=== PATIENT | male | born 1945 | race Asian ===

== ENCOUNTER 2019-08-21 16:16 | Inpatient (IN) | payer MEDICARE, MEDICAID ==
[~2019-08-21] VITALS: Ht 170.2 cm; Wt 74.4 kg
[2019-08-21] MEDS ORDERED: URECHOLINE25 MG GT (16:33)
[2019-08-21] MEDS ORDERED: COREG3.125 MG GT (16:33)
[2019-08-21] MEDS ORDERED: ACETAMINOP160 MG/5 M GT (16:33)
[2019-08-21] MEDS ORDERED: AMIODARONE HCL400 M1 GT (16:33)
[2019-08-21] MEDS ORDERED: ATORVASTATIN CA80 MG GT (16:33)
[2019-08-21] MEDS ORDERED: FERROUS SULFAT325 M2 GT (16:33)
[2019-08-21] MEDS ORDERED: EPOGEN10000 UNIT SUBQ (16:33)
[2019-08-21] MEDS ORDERED: PROSCAR5 MG GT (16:37)
[2019-08-21] MEDS ORDERED: HUMALOG100 UNIT/3 SUBQ (16:37)
[2019-08-21] MEDS ORDERED: FLONASE ALLERG9.9 ML NS (16:37)
[2019-08-21] MEDS ORDERED: LOPERAMIDE2 M1 GT (16:43)
[2019-08-21] MEDS ORDERED: JUVEN PACKET1 EAC1 GT (16:43)
[2019-08-21] MEDS ORDERED: LEVEMIR100 UNIT/1 SUBQ (16:43)
[2019-08-21] MEDS ORDERED: LOSARTAN-HCTZ1 EACH GT (16:43)
[2019-08-21] MEDS ORDERED: MELATONIN 3 MG1 EAC1 GT (16:43)
--- NOTE | 2019-08-21 16:52 | NUR ---
ED Nurse Note: Patient was brought in by ambulance from longterm due to incrased SOB. Reports no chest pain. No pitting edema noted. Patient awake, alert, oriented x 3. Able to follow command. Distended abdomen noted. G-tube to left side abdomen noted. Ptaient placed on ventilator and decaler.
[2019-08-21] MEDS ORDERED: MULTI-DELYN237 ML GT (16:53)
[2019-08-21] MEDS ORDERED: SIMETHICON40 MG/0.2 GT (17:02)
[2019-08-21] MEDS ORDERED: PRO-STAT LIQUID30 ML GT (17:02)
[2019-08-21] MEDS ORDERED: TERAZOSIN HCL5 MG GT (17:02)
[2019-08-21] MEDS ORDERED: VITAMIN B-1100 MG GT (17:02)
[2019-08-21] MEDS ORDERED: NORCO 5-325 TA1 EACH GT (17:02)
[2019-08-21] MEDS ORDERED: OMEPRAZOLE20 M2 GT (17:02)
[2019-08-21 17:05] LABS: BASOPHILS % (AUTO) 1.6 % (0.0-2.0); EOSINOPHILS % (AUTO) 3.3 % (0.0-3.0); HEMOGLOBIN 9.8 G/DL (14.2-18.0); LYMPHOCYTES % (AUTO) 13.3 % (20.0-45.0); MEAN CORPUSCULAR VOLUME 89 FL (80-99); MONOCYTES % (AUTO) 9.8 % (1.0-10.0); PLATELET COUNT 168 K/UL (150-450); RED BLOOD COUNT 3.82 M/UL (4.70-6.10); RED CELL DISTRIBUTION WIDTH 19.4 % (11.6-14.8); WHITE BLOOD COUNT 6.2 K/UL (4.8-10.8)
--- NOTE | 2019-08-21 17:19 | NUR ---
ED Nurse Note: Patient voided in urinal with assistance. Yellow urine collected and sent.
[2019-08-21 17:31] LABS: ANION GAP 6 mmol/L (5-15); BLOOD UREA NITROGEN 44 mg/dL (7-18); CALCIUM 9.2 MG/DL (8.5-10.1); CARBON DIOXIDE 32 MMOL/L (21-32); CHLORIDE 100 MMOL/L (98-107); CREATININE 1.1 MG/DL (0.55-1.30); POTASSIUM 4.9 MMOL/L (3.5-5.1); SODIUM 138 MMOL/L (136-145)
[2019-08-21 17:45] LABS: ALANINE AMINOTRANSFERASE 102 U/L (12-78); ALBUMIN 2.9 G/DL (3.4-5.0); ALBUMIN/GLOBULIN RATIO 0.6 (1.0-2.7); ALKALINE PHOSPHATASE 124 U/L (46-116); ASPARTATE AMINO TRANSFERASE 76 U/L (15-37); BILIRUBIN,TOTAL 0.4 MG/DL (0.2-1.0); CKMB < 0.5 NG/ML (0.0-3.6); CREATINE KINASE 45 U/L (26-308)
[2019-08-21 17:52] LABS: APPEARANCE,URINE CLEAR; BILIRUBIN, URINE NEGATIVE (NEGATIVE); COLOR,URINE PALE YELLOW; GLUCOSE, URINE (UA) NEGATIVE (NEGATIVE); KETONES,URINE NEGATIVE (NEGATIVE); LEUKOCYTE ESTERASE ,URINE NEGATIVE (NEGATIVE); NITRITE,URINE NEGATIVE (NEGATIVE); PH,URINE 7 (4.5-8.0); PROTEIN,URINE NEGATIVE (NEGATIVE); UROBILINOGEN,URINE NORMAL MG/DL (0.0-1.0)
--- NOTE | 2019-08-21 18:02 | Emergency Room Report ---
History of Present Illness General Chief Complaint: Abnormal Labs Source: Patient, Medical Record Present Illness HPI Patient is a 73-year-old male sent in from facility after increased difficulty with breathing. Prior history of CHF. Patient had prior history of chronic ventilator dependence. Patient was being treated with antibiotics and had recent pleural effusion. Laboratory testing showed markedly elevated BNP. Allergies: Coded Allergies: No Known Allergies (Unverified , 08/21/19) Patient History Reviewed Nursing Documentation: PMH: Agreed; PSxH: Agreed Nursing Documentation-PMH Past Medical History: No History, Except For Hx Hypertension: Yes - SVT, ANEMIA, HYPERLIPIDEMIA Hx Diabetes: Yes - DM 2 Review of Systems All Other Systems: negative except mentioned in HPI Physical Exam Vital Signs Date Time Temp Pulse Resp B/P (MAP) Pulse Ox O2 Delivery O2 Flow Rate FiO2 08/21/19 16:12 98.4 71 22 143/75 (97) 98 Trach Collar 08/21/19 17:12 40 General Appearance: alert, GCS 15, Chronically Ill Eyes: bilateral eye PERRL ENT: normal ENT inspection Neck: limited range of motion, tracheotomy Respiratory: rales Cardiovascular #1: normal peripheral pulses, edema Gastrointestinal: normal inspection, non tender, soft Musculoskeletal: normal inspection Neurologic: alert, motor strength/tone normal, 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 Differential diagnosis include was not limited to pneumonia, bronchitis, anemia, CHF among others. Chest x-ray showed bilateral pleural effusions with some fluid in the right fissure. Laboratory testing shows mild anemia. Patient was given IV Lasix. He was maintained on a ventilator. Dr. Syed Eanmorado was contacted for inpatient management. Labs Test 08/21/19 16:40 08/21/19 17:00 White Blood Count 6.2 K/UL (4.8-10.8) Red Blood Count 3.82 M/UL (4.70-6.10) Hemoglobin 9.8 G/DL (14.2-18.0) Hematocrit 34.0 % (42.0-52.0) Mean Corpuscular Volume 89 FL (80-99) Mean Corpuscular Hemoglobin 25.6 PG (27.0-31.0) Mean Corpuscular Hemoglobin Concent 28.8 G/DL (32.0-36.0) Red Cell Distribution Width 19.4 % (11.6-14.8) Platelet Count 168 K/UL (150-450) Mean Platelet Volume 7.9 FL (6.5-10.1) Neutrophils (%) (Auto) 72.0 % (45.0-75.0) Lymphocytes (%) (Auto) 13.3 % (20.0-45.0) Monocytes (%) (Auto) 9.8 % (1.0-10.0) Eosinophils (%) (Auto) 3.3 % (0.0-3.0) Basophils (%) (Auto) 1.6 % (0.0-2.0) Sodium Level 138 MMOL/L (136-145) Potassium Level 4.9 MMOL/L (3.5-5.1) Chloride Level 100 MMOL/L (98-107) Carbon Dioxide Level 32 MMOL/L (21-32) Anion Gap 6 mmol/L (5-15) Blood Urea Nitrogen 44 mg/dL (7-18) Creatinine 1.1 MG/DL (0.55-1.30) Estimat Glomerular Filtration Rate mL/min (>60) Glucose Level 103 MG/DL (74-106) Lactic Acid Level 1.40 mmol/L (0.4-2.0) Calcium Level 9.2 MG/DL (8.5-10.1) Total Bilirubin 0.4 MG/DL (0.2-1.0) Aspartate Amino Transf (AST/SGOT) 76 U/L (15-37) Alanine Aminotransferase (ALT/SGPT) 102 U/L (12-78) Alkaline Phosphatase 124 U/L (46-116) Total Creatine Kinase 45 U/L (26-308) Creatine Kinase MB < 0.5 NG/ML (0.0-3.6) Creatine Kinase MB Relative Index 1.1 Troponin I 0.008 ng/mL (0.000-0.056) Pro-B-Type Natriuretic Peptide 3757 pg/mL (0-125) Total Protein 8.0 G/DL (6.4-8.2) Albumin 2.9 G/DL (3.4-5.0) Globulin 5.1 g/dL Albumin/Globulin Ratio 0.6 (1.0-2.7) Last Vital Signs Date Time Temp Pulse Resp B/P (MAP) Pulse Ox O2 Delivery O2 Flow Rate FiO2 08/21/19 17:18 40 08/21/19 17:12 71 22 Mechanical Ventilator 08/21/19 16:12 98.4 143/75 (97) 98 Status: unchanged Disposition: ADMITTED INPATIENT Condition: Serious Referrals: Syed Enamorado MD (PCP) Félix Hamm MD Aug 21, 2019 18:02
--- NOTE | 2019-08-21 18:08 | NUR ---
ED Nurse Note: Patient has discoloration (purple) on the sacral area. Patient also has generalized edema on upper body, BUE and bilateral upper leg.
--- NOTE | 2019-08-21 18:24 | Diagnostic Imaging Report ---
EXAM: XR Chest, 1 View CLINICAL HISTORY: SOB TECHNIQUE: Frontal view of the chest. COMPARISON: No relevant prior studies available. FINDINGS: Tracheostomy appears appropriately positioned. No pneumomediastinum or pneumothorax. Bibasilar opacities, likely a combination of pleural effusions and atelectasis or consolidation. There is some fissural fluid. Calcified aorta. Heart contours are somewhat obscured by adjacent pleural/parenchymal disease, but the heart is not grossly enlarged. IMPRESSION: Basilar opacities, likely a combination of pleural effusions and atelectasis or consolidation. Lateral view may be helpful. Tracheostomy.
[2019-08-21 18:29] VITALS: BP 122/55
--- NOTE | 2019-08-21 19:05 | NUR ---
ED Nurse Note: Report given to HOMER [place]. Patient resting in bed. Bed in lowest position.
--- NOTE | 2019-08-21 19:28 | NUR ---
ER Nurse Note: Pt calm, cooperative, no signs of resp distress. Pt VSS, vented, tolerating well with current settings. SLIV LT FA patent; flushes well; pt denies pain. Family at bedside. All safety measures met; will continue to montior.
--- NOTE | 2019-08-21 19:33 | Diagnostic Imaging Report ---
EXAM: XR Abdomen, 2 Views CLINICAL HISTORY: ABD DIST TECHNIQUE: Frontal view of the abdomen/pelvis with upright view of the abdomen. COMPARISON: No relevant prior studies available. FINDINGS/IMPRESSION: Gastrostomy or enterostomy tube in the leftward mid abdomen. No clear bowel obstruction or free air.
[2019-08-21 19:41] VITALS: BP 132/62
--- NOTE | 2019-08-21 19:49 | NUR ---
ER Nurse Note: Report given to HOMER Ruff for continuity of care. Pt VSS, no signs of distress. Pt had no belongings. All orders completed per ERMD orders.
[2019-08-21 20:00] VITALS: BP 141/63
--- NOTE | 2019-08-21 20:00 | NUR ---
NURSE NOTES: Report received from HOMER [place]. Pt transferred to unit via [facility]. Family member at bedside. Belonging checked with RN. Pt is A/O x3, no acute distress noted at this time. SR on school bus monitor. Trach to vent, Shiley 8, AC 20, TV 450, FIO2 40%, PEEP 5, no sob, suction done. clear sputum noted, oral care given. Abd soft, round, non-tender. GT on left UQ, intact, running Glucerna 1.2 at 10cc/hr, goal is 40cc/hr. IV on L FA 20G, intact. Sacral redness noted. Bed in the lowest position. Side rails up x2. Will continue to monitor.
[2019-08-21] MEDS ORDERED: Epoetin Alfa-EPBX(ESRD on dialysis)10,000 unit/ml vial SUBQ SCH (21:00)
[2019-08-21] MEDS: NovoLOG Insulin Flexpen SUBQ SCH (21:00)
[2019-08-21] MEDS ORDERED: oxyCODONE HCL/Acetaminophen 5/325mg ORAL PRN (21:00)
[2019-08-21] MEDS: Levemir Flexpen SUBQ SCH (21:00)
[2019-08-21] MEDS ORDERED: Simethicone 80mg tab GT PRN (21:00)
[2019-08-21] MEDS: Losartan 25mg tab ORAL SCH (22:01)
[2019-08-21] MEDS: Atorvastatin 80mg tab GT SCH (22:02)
[2019-08-21] MEDS: Heparin 5000 units/ml inj SUBQ SCH (22:02)
[2019-08-22] VITALS: BP 126/60
--- NOTE | 2019-08-22 | NUR ---
NURSE NOTES: Noted pt sleeping in the bed, calm and comfortable. No acute distress noted at this time. SR on cardiac care nurse. VS WNL. No SOB. Bed bath given. Condom cath applied. Will continue to monitor.
--- NOTE | 2019-08-22 03:00 | NUR ---
NURSE NOTES: Pt sleeping in the bed, no distress noted. Tolerating well tube feeding and increased to 25cc/hr.
[2019-08-22 04:00] VITALS: BP 127/60
[2019-08-22 06:01] LABS: BASOPHILS % (AUTO) 1.4 % (0.0-2.0); EOSINOPHILS % (AUTO) 5.1 % (0.0-3.0); HEMATOCRIT 31.5 % (42.0-52.0); HEMOGLOBIN 9.8 G/DL (14.2-18.0); LYMPHOCYTES % (AUTO) 13.4 % (20.0-45.0); MEAN CORPUSCULAR VOLUME 84 FL (80-99); MONOCYTES % (AUTO) 10.3 % (1.0-10.0); NEUTROPHILS % (AUTO) 69.8 % (45.0-75.0); PLATELET COUNT 188 K/UL (150-450); RED BLOOD COUNT 3.73 M/UL (4.70-6.10); RED CELL DISTRIBUTION WIDTH 17.9 % (11.6-14.8); WHITE BLOOD COUNT 5.2 K/UL (4.8-10.8)
[2019-08-22] MEDS: NovoLOG Insulin Flexpen SUBQ SCH ×4 (06:17→22:45)
[2019-08-22] MEDS: Levothyroxine 25mcg tab GT SCH (06:17)
[2019-08-22 06:38] LABS: ANION GAP 5 mmol/L (5-15); BLOOD UREA NITROGEN 36 mg/dL (7-18); CALCIUM 8.6 MG/DL (8.5-10.1); CARBON DIOXIDE 35 MMOL/L (21-32); CHLORIDE 100 MMOL/L (98-107); POTASSIUM 3.3 MMOL/L (3.5-5.1); SODIUM 140 MMOL/L (136-145)
--- NOTE | 2019-08-22 07:10 | NUR ---
HAND-OFF: Report given to HOMER Sotomayor.
--- NOTE | 2019-08-22 07:15 | NUR ---
NURSE NOTES: Report received from David Mancini RN.Pt resting in bed awake,alert follows command in no resp distress with trach tube ,on current ordered vent settings,tolerating well,no signs of pain or discomfort,SR on the monitor,GTF Glucerna 1.2 at 40 ml/hr off from 7am -7pm,pt is on oral feeding regular diet pureed moist nectar thick with Passimir valve while eating,condom cath leaking,IV heplock to LFA intact skin warm and dry,SR up x2 HOB elevated call light within reach,bed lock in lowest position, at bedside, will continue with plans of care
[2019-08-22 08:00] VITALS: BP 122/58
--- NOTE | 2019-08-22 08:22 | Consultation ---
Consult Note Consult Note 73 year old male with COPD and vent dependent who was noted to have worsening pulmonary edema and has not improved with PO lasix. BNP very elevated at this time overall patient with increasing sob and congestion. Patient transferred for acute admission. Patient able to eat and does have a GT no fevers noted labs reviewed. care discussed with ERMD and labs reviewed patient has been at the long-term and had been stable but now overall worse he does have history of cardiomyopathy and CHF in the past and has been on cardiac meds and overall was stable extensive discussion with SNF staff and ER chart reviewed PMH respiratory failure trach gt cardiomyopathy debility orthostatic hypotension CHF anemia MEDS and ALLERGIES reviewed and reconciled SOCIAL- prior smoking history, , at SNF, on VENT ROS weak able to ambulate cannot wean increasing sob insomnia constipation vent dependent heart disease and heart failure otherwise negative PHYSICAL WDWN NAD trach reduced breath sounds bilaterally without rhonchi or wheeze [id number] without RG; sys murmur NABS nontender no HSM; GT no CC edema nonfocal CXR with pulmonary edema Labs Test 08/21/19 16:40 08/21/19 17:00 08/22/19 05:09 White Blood Count 6.2 K/UL (4.8-10.8) 5.2 K/UL (4.8-10.8) Red Blood Count 3.82 M/UL (4.70-6.10) 3.73 M/UL (4.70-6.10) Hemoglobin 9.8 G/DL (14.2-18.0) 9.8 G/DL (14.2-18.0) Hematocrit 34.0 % (42.0-52.0) 31.5 % (42.0-52.0) Mean Corpuscular Volume 89 FL (80-99) 84 FL (80-99) Mean Corpuscular Hemoglobin 25.6 PG (27.0-31.0) 26.4 PG (27.0-31.0) Mean Corpuscular Hemoglobin Concent 28.8 G/DL (32.0-36.0) 31.3 G/DL (32.0-36.0) Red Cell Distribution Width 19.4 % (11.6-14.8) 17.9 % (11.6-14.8) Platelet Count 168 K/UL (150-450) 188 K/UL (150-450) Mean Platelet Volume 7.9 FL (6.5-10.1) 6.3 FL (6.5-10.1) Neutrophils (%) (Auto) 72.0 % (45.0-75.0) 69.8 % (45.0-75.0) Lymphocytes (%) (Auto) 13.3 % (20.0-45.0) 13.4 % (20.0-45.0) Monocytes (%) (Auto) 9.8 % (1.0-10.0) 10.3 % (1.0-10.0) Eosinophils (%) (Auto) 3.3 % (0.0-3.0) 5.1 % (0.0-3.0) Basophils (%) (Auto) 1.6 % (0.0-2.0) 1.4 % (0.0-2.0) Sodium Level 138 MMOL/L (136-145) 140 MMOL/L (136-145) Potassium Level 4.9 MMOL/L (3.5-5.1) 3.3 MMOL/L (3.5-5.1) Chloride Level 100 MMOL/L (98-107) 100 MMOL/L (98-107) Carbon Dioxide Level 32 MMOL/L (21-32) 35 MMOL/L (21-32) Anion Gap 6 mmol/L (5-15) 5 mmol/L (5-15) Blood Urea Nitrogen 44 mg/dL (7-18) 36 mg/dL (7-18) Creatinine 1.1 MG/DL (0.55-1.30) 1.0 MG/DL (0.55-1.30) Estimat Glomerular Filtration Rate mL/min (>60) mL/min (>60) Glucose Level 103 MG/DL (74-106) 86 MG/DL (74-106) Lactic Acid Level 1.40 mmol/L (0.4-2.0) Calcium Level 9.2 MG/DL (8.5-10.1) 8.6 MG/DL (8.5-10.1) Total Bilirubin 0.4 MG/DL (0.2-1.0) Aspartate Amino Transf (AST/SGOT) 76 U/L (15-37) Alanine Aminotransferase (ALT/SGPT) 102 U/L (12-78) Alkaline Phosphatase 124 U/L (46-116) Total Creatine Kinase 45 U/L (26-308) Creatine Kinase MB < 0.5 NG/ML (0.0-3.6) Creatine Kinase MB Relative Index 1.1 Troponin I 0.008 ng/mL (0.000-0.056) Pro-B-Type Natriuretic Peptide 3757 pg/mL (0-125) 5910 pg/mL (0-125) Total Protein 8.0 G/DL (6.4-8.2) Albumin 2.9 G/DL (3.4-5.0) Globulin 5.1 g/dL Albumin/Globulin Ratio 0.6 (1.0-2.7) Urine Color Pale yellow Urine Appearance Clear Urine pH 7 (4.5-8.0) Urine Specific [place] 1.010 (1.005-1.035) Urine Protein Negative (NEGATIVE) Urine Glucose (UA) Negative (NEGATIVE) Urine Ketones Negative (NEGATIVE) Urine Blood Negative (NEGATIVE) Urine Nitrite Negative (NEGATIVE) Urine Bilirubin Negative (NEGATIVE) Urine Urobilinogen Normal MG/DL (0.0-1.0) Urine Leukocyte Esterase Negative (NEGATIVE) IMPRESSION CHF pulmonary edema protein calorie malnutrition GINETTE anemia, chronic disease respiratory failure chronic trach gt orthostatic hypotension PLAN VENT diurese cardiology evaluation monitor cxr supportive care follow up labs dc to snf when stable impression, plan, and exam edited and reviewed in detail care discussed with Syed Golden MD Aug 22, 2019 08:22
--- NOTE | 2019-08-22 08:22 | Pulmonology Progress Note ---
Subjective Allergies: Coded Allergies: No Known Allergies (Unverified , 08/21/19) Objective Last 24 Hour Vital Signs Date Time Temp Pulse Resp B/P (MAP) Pulse Ox O2 Delivery O2 Flow Rate FiO2 08/22/19 07:14 65 22 40 08/22/19 04:34 65 21 40 08/22/19 04:00 98.2 67 20 127/60 (82) 98 08/22/19 04:00 Mechanical Ventilator Mechanical Ventilator 08/22/19 04:00 65 08/22/19 04:00 40 08/22/19 02:43 65 22 40 08/22/19 00:42 61 20 40 08/22/19 00:00 98.4 67 20 126/60 (82) 100 08/22/19 00:00 61 08/22/19 00:00 40 08/22/19 00:00 Mechanical Ventilator Mechanical Ventilator 08/21/19 23:10 84 22 40 08/21/19 22:02 70 141/63 08/21/19 22:01 141/63 08/21/19 20:48 64 20 40 08/21/19 20:34 Mechanical Ventilator Mechanical Ventilator 08/21/19 20:00 40 08/21/19 20:00 98.0 70 20 141/63 (89) 100 08/21/19 20:00 Mechanical Ventilator Mechanical Ventilator 08/21/19 19:55 97.5 69 20 132/62 99 Mechanical Ventilator 40 08/21/19 19:41 97.5 69 20 132/62 99 Mechanical Ventilator 40 08/21/19 19:16 71 08/21/19 18:51 73 20 08/21/19 18:29 97.8 71 20 122/55 99 Mechanical Ventilator 40 08/21/19 17:18 40 08/21/19 17:12 71 22 Mechanical Ventilator 40 08/21/19 16:12 98.4 71 22 143/75 (97) 98 Trach Collar Intake and Output 08/21/19 08/22/19 19:00 07:00 Intake Total 220 ml Output Total 350 ml Balance -130 ml Intake Free Water 70 ml Tube Feeding 150 ml Output Urine Total 350 ml # Voids 102 Microbiology Date/Time Source Procedure Growth Status 08/21/19 16:42 Nasal Nares - Final Complete 08/21/19 16:42 Nasal Nares - Final Complete 08/21/19 17:30 Rectum Received Laboratory Tests 08/21/19 16:40: White Blood Count 6.2, Red Blood Count 3.82L, Hemoglobin 9.8L, Hematocrit 34.0L , Mean Corpuscular Volume 89, Mean Corpuscular Hemoglobin 25.6L, Mean Corpuscular Hemoglobin Concent 28.8L, Red Cell Distribution Width 19.4H, Platelet Count 168, Mean Platelet Volume 7.9, Neutrophils (%) (Auto) 72.0, Lymphocytes (%) (Auto) 13.3L, Monocytes (%) (Auto) 9.8, Eosinophils (%) (Auto) 3.3H, Basophils (%) (Auto) 1.6, Sodium Level 138, Potassium Level 4.9, Chloride Level 100, Carbon Dioxide Level 32, Anion Gap 6, Blood Urea Nitrogen 44H, Creatinine 1.1, Estimat Glomerular Filtration Rate , Glucose Level 103, Lactic Acid Level 1.40, Calcium Level 9.2, Total Bilirubin 0.4, Aspartate Amino Transf (AST/SGOT) 76H, Alanine Aminotransferase (ALT/SGPT) 102H, Alkaline Phosphatase 124H, Total Creatine Kinase 45, Creatine Kinase MB < 0.5, Creatine Kinase MB Relative Index 1.1, Troponin I 0.008, Pro-B-Type Natriuretic Peptide 3757H, Total Protein 8.0, Albumin 2.9L, Globulin 5.1, Albumin/Globulin Ratio 0.6L 08/21/19 17:00: Urine Color Pale yellow, Urine Appearance Clear, Urine pH 7, Urine Specific [place] 1.010, Urine Protein Negative, Urine Glucose (UA) Negative, Urine Ketones Negative, Urine Blood Negative, Urine Nitrite Negative, Urine Bilirubin Negative, Urine Urobilinogen Normal, Urine Leukocyte Esterase Negative 08/22/19 05:09: White Blood Count 5.2, Red Blood Count 3.73L, Hemoglobin 9.8L, Hematocrit 31.5L , Mean Corpuscular Volume 84, Mean Corpuscular Hemoglobin 26.4L, Mean Corpuscular Hemoglobin Concent 31.3L, Red Cell Distribution Width 17.9H, Platelet Count 188, Mean Platelet Volume 6.3L, Neutrophils (%) (Auto) 69.8, Lymphocytes (%) (Auto) 13.4L, Monocytes (%) (Auto) 10.3H, Eosinophils (%) (Auto ) 5.1H, Basophils (%) (Auto) 1.4, Sodium Level 140, Potassium Level 3.3L, Chloride Level 100, Carbon Dioxide Level 35H, Anion Gap 5, Blood Urea Nitrogen 36H, Creatinine 1.0, Estimat Glomerular Filtration Rate , Glucose Level 86, Calcium Level 8.6, Pro-B-Type Natriuretic Peptide 5910H Current Medications Medications (Trade) Dose Ordered Sig/Deepak Route PRN Reason Start Time Stop Time Status Last Admin Dose Admin Acetaminophen (Tylenol) 650 mg Q4H PRN GT Mild Pain/Temp > 100.5 08/21/19 20:45 09/20/19 20:44 Al Hydroxide/Mg Hydroxide (Mylanta) 30 ml Q6H PRN GT Indigestion 08/21/19 20:45 09/20/19 20:44 Amiodarone HCl (Cordarone) 200 mg DAILY GT 08/22/19 09:00 09/21/19 08:59 Amoxicillin/ Clavulanate Potassium (Augmentin) 500 mg BID GT 08/22/19 09:00 08/29/19 08:59 Ascorbic Acid (Vitamin C) 500 mg DAILY GT 08/22/19 09:00 09/21/19 08:59 Atorvastatin Calcium (Lipitor) 80 mg BEDTIME GT 08/21/19 21:00 09/20/19 20:59 08/21/19 22:02 Bethanechol Chloride (Urecholine) 10 mg TWICE A DAY GT 08/22/19 09:00 09/21/19 08:59 Carvedilol (Coreg) 3.125 mg EVERY 12 HOURS GT 08/21/19 21:00 09/20/19 20:59 08/21/19 22:02 Dextrose (Dextrose 50%) 25 ml Q30M PRN IV Hypoglycemia 08/21/19 21:00 09/20/19 20:59 Dextrose (Dextrose 50%) 50 ml Q30M PRN IV Hypoglycemia 08/21/19 21:00 09/20/19 20:59 Epoetin Tobin (Epoetin Tobin(ESRD on dialysis)) 10,000 unit SAT-SAT-SAT SUBQ 08/21/19 21:00 09/20/19 20:59 Ferrous Sulfate (Feosol) 330 mg THREE TIMES A DAY GT 08/22/19 09:00 3/2/20 08:59 Finasteride (Proscar) 5 mg BIOTEC ORAL 08/21/19 21:00 09/20/19 20:59 08/21/19 22:02 Fludrocortisone Acetate (Florinef) 0.05 mg DAILY GT 08/22/19 09:00 09/21/19 08:59 Furosemide (Lasix) 40 mg EVERY 12 HOURS IV 08/21/19 21:00 09/20/19 20:59 08/21/19 22:01 Heparin Sodium (Porcine) (Heparin 5000 units/ml) 5,000 units EVERY 12 HOURS SUBQ 08/21/19 21:00 09/20/19 20:59 08/21/19 22:02 Insulin Aspart (NovoLOG) BEFORE MEALS AND HS SUBQ 08/21/19 21:00 09/20/19 20:59 Insulin Detemir (Levemir) 6 units BEDTIME SUBQ 08/21/19 21:00 09/20/19 20:59 Levothyroxine Sodium (Synthroid) 25 mcg DAILY@0630 GT 08/22/19 06:30 09/21/19 06:29 08/22/19 06:17 Losartan Potassium (Cozaar) 12.5 mg BEDTIME ORAL 08/21/19 21:00 09/20/19 20:59 08/21/19 22:01 Multivitamins (Multivitamins W/ Minerals 15ml Liquid) 15 ml DAILY GT 08/22/19 09:00 09/21/19 08:59 Oxycodone/ Acetaminophen (Percocet 5-325) 1 tab Q4H PRN ORAL Severe Breakthru Pain (>7) 08/21/19 21:00 08/28/19 20:59 Pantoprazole (Protonix) 40 mg DAILY@0630 ORAL 08/22/19 06:30 09/21/19 06:29 08/22/19 06:17 Simethicone (Mylicon) 80 mg QID PRN GT abd discomfort 08/21/19 21:00 09/20/19 20:59 Thiamine HCl (Vitamin B1) 100 mg DAILY GT 08/22/19 09:00 09/21/19 08:59 Syed Enamorado MD Aug 22, 2019 08:22
[2019-08-22] MEDS: Bethanechol 25mg Tab GT SCH ×2 (09:05→17:45)
[2019-08-22] MEDS: Amiodarone 200mg tab GT SCH (09:06)
[2019-08-22] MEDS: Ascorbic Acid 500mg tab GT SCH (09:06)
[2019-08-22] MEDS: Thiamine 100mg tab GT SCH (09:06)
[2019-08-22] MEDS: Ferrous Sulfate 300 MG/5 ML UDC GT SCH ×3 (09:06→17:44)
[2019-08-22] MEDS: Multivitamins W/Minerals 15 ML UDC GT SCH (09:07)
[2019-08-22] MEDS: Heparin 5000 units/ml inj SUBQ SCH ×2 (09:09→23:09)
--- NOTE | 2019-08-22 09:51 | NUR ---
RADIOLOGY DEPT., CHEST X-RAY DONE.-P.DYE
--- NOTE | 2019-08-22 09:57 | Diagnostic Imaging Report ---
EXAM: XR Chest, 2 Views CLINICAL HISTORY: Shortness of breath TECHNIQUE: Frontal and lateral views of the chest. COMPARISON: Chest x-rays dated 08/21/19 FINDINGS: Lungs: Persistent pulmonary vascular congestion and pulmonary interstitial edema. Subsegmental atelectasis versus infiltrates in the left lung base, unchanged. Pleural space: Unchanged appearance of small layering left pleural effusion and fluid in the right minor fissure. Heart: Unremarkable. No cardiomegaly. Mediastinum: Unremarkable. Bones/joints: Unremarkable. Vasculature: Atherosclerotic calcifications are noted within the aortic arch. Tubes, lines and devices: Stable positioning of the tracheostomy tube. Telemetry leads overlie the thorax. IMPRESSION: 1. No significant interval change from the prior day's chest x-ray. 2. Persistent pulmonary vascular congestion and pulmonary interstitial edema. 3. Unchanged appearance of small layering left pleural effusion and fluid in the right minor fissure. 4. Subsegmental atelectasis versus infiltrates in the left lung base, unchanged.
[2019-08-22 12:00] VITALS: BP 121/67
--- NOTE | 2019-08-22 12:36 | CDS Physician Query ---
Clarification is required for compliance, coding accuracy, and to reflect severity of illness for this patient Dear Syed Chang MD Date: 08/22/2019 Manager Terminal/CDS Name: Duke Capellan 73 year old male with COPD and vent dependent who was noted to have worsening pulmonary edema and has not improved with PO lasix. BNP very elevated at this time overall patient with increasing sob and congestion. Patient transferred for acute admission. Patient able to eat and does have a GT no fevers noted labs reviewed. IMPRESSION CHF pulmonary edema protein calorie malnutrition GINETTE anemia, chronic disease respiratory failure chronic Albumin: 2.9 Please select the most appropriate option: [x] Protein/Calorie Malnutrition [] Mild [x] Moderate [] Severe [] Other [] Unable to determine [] Not Applicable Present on Admission: [x] Yes [] No [] Clinically Undetermined Physician signature Date Please also document in your Progress Notes and/or Discharge Summary and indicate if the condition was present on admission. MTDD
--- NOTE | 2019-08-22 12:59 | Cardiac Electrophysiology PN ---
Subjective Subjective Patient seen and DW RN and at bedside. [id number] Objective Last 24 Hour Vital Signs Date Time Temp Pulse Resp B/P (MAP) Pulse Ox O2 Delivery O2 Flow Rate FiO2 08/22/19 10:33 58 20 40 08/22/19 09:11 63 122/58 08/22/19 09:05 60 20 40 08/22/19 08:00 62 08/22/19 08:00 98.5 63 25 122/58 (79) 94 08/22/19 08:00 40 08/22/19 08:00 Mechanical Ventilator Mechanical Ventilator 08/22/19 07:14 65 22 40 08/22/19 04:34 65 21 40 08/22/19 04:00 98.2 67 20 127/60 (82) 98 08/22/19 04:00 Mechanical Ventilator Mechanical Ventilator 08/22/19 04:00 65 08/22/19 04:00 40 08/22/19 02:43 65 22 40 08/22/19 00:42 61 20 40 08/22/19 00:00 98.4 67 20 126/60 (82) 100 08/22/19 00:00 61 08/22/19 00:00 40 08/22/19 00:00 Mechanical Ventilator Mechanical Ventilator 08/21/19 23:10 84 22 40 08/21/19 22:02 70 141/63 08/21/19 22:01 141/63 08/21/19 20:48 64 20 40 08/21/19 20:34 Mechanical Ventilator Mechanical Ventilator 08/21/19 20:00 40 08/21/19 20:00 98.0 70 20 141/63 (89) 100 08/21/19 20:00 Mechanical Ventilator Mechanical Ventilator 08/21/19 19:55 97.5 69 20 132/62 99 Mechanical Ventilator 40 08/21/19 19:41 97.5 69 20 132/62 99 Mechanical Ventilator 40 08/21/19 19:16 71 08/21/19 18:51 73 20 08/21/19 18:29 97.8 71 20 122/55 99 Mechanical Ventilator 40 08/21/19 17:18 40 08/21/19 17:12 71 22 Mechanical Ventilator 40 08/21/19 16:12 98.4 71 22 143/75 (97) 98 Trach Collar Intake and Output 08/21/19 08/22/19 19:00 07:00 Intake Total 220 ml Output Total 350 ml Balance -130 ml Intake Free Water 70 ml Tube Feeding 150 ml Output Urine Total 350 ml # Voids 102 Laboratory Tests Test 08/21/19 16:40 08/21/19 17:00 08/22/19 05:09 White Blood Count 6.2 K/UL (4.8-10.8) 5.2 K/UL (4.8-10.8) Red Blood Count 3.82 M/UL (4.70-6.10) L 3.73 M/UL (4.70-6.10) L Hemoglobin 9.8 G/DL (14.2-18.0) L 9.8 G/DL (14.2-18.0) L Hematocrit 34.0 % (42.0-52.0) L 31.5 % (42.0-52.0) L Mean Corpuscular Volume 89 FL (80-99) 84 FL (80-99) Mean Corpuscular Hemoglobin 25.6 PG (27.0-31.0) L 26.4 PG (27.0-31.0) L Mean Corpuscular Hemoglobin Concent 28.8 G/DL (32.0-36.0) L 31.3 G/DL (32.0-36.0) L Red Cell Distribution Width 19.4 % (11.6-14.8) H 17.9 % (11.6-14.8) H Platelet Count 168 K/UL (150-450) 188 K/UL (150-450) Mean Platelet Volume 7.9 FL (6.5-10.1) 6.3 FL (6.5-10.1) L Neutrophils (%) (Auto) 72.0 % (45.0-75.0) 69.8 % (45.0-75.0) Lymphocytes (%) (Auto) 13.3 % (20.0-45.0) L 13.4 % (20.0-45.0) L Monocytes (%) (Auto) 9.8 % (1.0-10.0) 10.3 % (1.0-10.0) H Eosinophils (%) (Auto) 3.3 % (0.0-3.0) H 5.1 % (0.0-3.0) H Basophils (%) (Auto) 1.6 % (0.0-2.0) 1.4 % (0.0-2.0) Sodium Level 138 MMOL/L (136-145) 140 MMOL/L (136-145) Potassium Level 4.9 MMOL/L (3.5-5.1) 3.3 MMOL/L (3.5-5.1) L Chloride Level 100 MMOL/L (98-107) 100 MMOL/L (98-107) Carbon Dioxide Level 32 MMOL/L (21-32) 35 MMOL/L (21-32) H Anion Gap 6 mmol/L (5-15) 5 mmol/L (5-15) Blood Urea Nitrogen 44 mg/dL (7-18) H 36 mg/dL (7-18) H Creatinine 1.1 MG/DL (0.55-1.30) 1.0 MG/DL (0.55-1.30) Estimat Glomerular Filtration Rate mL/min (>60) mL/min (>60) Glucose Level 103 MG/DL (74-106) 86 MG/DL (74-106) Lactic Acid Level 1.40 mmol/L (0.4-2.0) Calcium Level 9.2 MG/DL (8.5-10.1) 8.6 MG/DL (8.5-10.1) Total Bilirubin 0.4 MG/DL (0.2-1.0) Aspartate Amino Transf (AST/SGOT) 76 U/L (15-37) H Alanine Aminotransferase (ALT/SGPT) 102 U/L (12-78) H Alkaline Phosphatase 124 U/L (46-116) H Total Creatine Kinase 45 U/L (26-308) Creatine Kinase MB < 0.5 NG/ML (0.0-3.6) Creatine Kinase MB Relative Index 1.1 Troponin I 0.008 ng/mL (0.000-0.056) Pro-B-Type Natriuretic Peptide 3757 pg/mL (0-125) H 5910 pg/mL (0-125) H Total Protein 8.0 G/DL (6.4-8.2) Albumin 2.9 G/DL (3.4-5.0) L Globulin 5.1 g/dL Albumin/Globulin Ratio 0.6 (1.0-2.7) L Urine Color Pale yellow Urine Appearance Clear Urine pH 7 (4.5-8.0) Urine Specific [place] 1.010 (1.005-1.035) Urine Protein Negative (NEGATIVE) Urine Glucose (UA) Negative (NEGATIVE) Urine Ketones Negative (NEGATIVE) Urine Blood Negative (NEGATIVE) Urine Nitrite Negative (NEGATIVE) Urine Bilirubin Negative (NEGATIVE) Urine Urobilinogen Normal MG/DL (0.0-1.0) Urine Leukocyte Esterase Negative (NEGATIVE) Microbiology Date/Time Source Procedure Growth Status 08/21/19 16:42 Nasal Nares - Final Complete 08/21/19 16:42 Nasal Nares - Final Complete 08/21/19 17:30 Rectum Received Vipul Hazel MD Aug 22, 2019 12:59
--- NOTE | 2019-08-22 13:00 | NUR ---
NURSE NOTES: Seen by Dr Hazel,spoke with pt's re plans of care.
--- NOTE | 2019-08-22 13:35 | NUR ---
NURSE NOTES: DR Oneill at bedside,with orders for US abdomen.
--- NOTE | 2019-08-22 13:35 | Consultation ---
History of Present Illness General Date patient seen: Aug 22, 2019 Chief Complaint: Abnormal Labs Present Illness HPI Patient is a 73-year-old male sent in from facility after increased difficulty with breathing. Prior history of CHF. Patient had prior history of chronic ventilator dependence. Patient was being treated with antibiotics and had recent pleural effusion. Laboratory testing showed markedly elevated BNP. Admitted for care and management. on admission noted to have abnormal lft's. surgery called to evaluate and assist with care patient seen, chart reviewed, patient examined. family at bedside. tach and peg recently. has been distended. no n/v/f/c. Allergies: Coded Allergies: No Known Allergies (Unverified , 08/21/19) Medication History Scheduled Amino Acids/Protein Hydrolys (Pro-Stat Liquid), 30 ML GT DAILY, (Reported) Amiodarone Hcl* (Amiodarone Hcl*), 200 MG GT DAILY, (Reported) Arginine/Glutamine/Calcium Hmb (Xiang Packet), 1 EACH GT TWICE A DAY, (Reported) Atorvastatin Calcium* (Lipitor*), 80 MG GT BEDTIME, (Reported) Bethanechol Chl (Bethanechol Chloride), 10 MG GT TWICE A DAY, (Reported) Carvedilol (Coreg), 3.125 MG GT EVERY 12 HOURS, (Reported) Epoetin Tobin (Epogen), 10,000 UNIT SUBQ 3XW, (Reported) Ferrous Sulfate (Ferrous Sulfate), 330 MG GT THREE TIMES A DAY, (Reported) Finasteride* (Proscar*), 5 MG GT BEDTIME, (Reported) Fluticasone Propionate (Flonase Allergy Relief), 9.9 ML NS DAILY, (Reported) Insulin Detemir (Levemir), 6 SUBQ BEDTIME, (Reported) Insulin Lispro (Humalog), 0 SUBQ Q6HR, (Reported) Loperamide Hcl (Loperamide), 2 MG GT QID, (Reported) Losartan/Hydrochlorothiazide (Losartan-Hctz 100-12.5 Mg Tab), 1 TAB GT DAILY, ( Reported) Melatonin/Pyridoxine HCl (B6) (Melatonin 3 mg Tablet), 1 EACH GT 5PM, (Reported) Multivitamin Liquid* (Multi-Delyn*), 15 ML GT DAILY, (Reported) Omeprazole (Omeprazole), 20 MG GT DAILY, (Reported) Simethicone (Simethicone), 80 MG GT Q8HR, (Reported) Terazosin Hcl (Terazosin Hcl), 5 MG GT BEDTIME, (Reported) Thiamine Hcl* (Vitamin B-1*), 200 MG GT DAILY, (Reported) Scheduled PRN Acetaminophen 160MG/5ML* (Acetaminophen*), 20 ML GT DAILY PRN for For Pain, ( Reported) Hydrocodone Bit/Acetaminophen 5-325* ([place] 5-325*), 1 TAB GT Q6HR PRN for For Pain, (Reported) Patient History Limited by: medical condition History Provided By: Medical Record, PMD Healthcare decision maker Resuscitation status Full Code Advanced Directive on File Past Medical/Surgical History Past Medical/Surgical History: (1) Abnormal laboratory test result (2) Ventilator dependent (3) CHF exacerbation Review of Systems All Other Systems: negative except mentioned in HPI ROS Narrative cannot obtain given medical condition Physical Exam General Appearance: no apparent distress Lines, tubes and drains: trach HEENT: atraumatic, mucous membranes moist Neck: trach Respiratory/Chest: on vent Cardiovascular/Chest: normal rate, regular rhythm Abdomen: soft, no organomegaly, no mass, distended, feeding tube Extremities: normal inspection, no calf tenderness Skin Exam: warm/dry Neurologic: alert Last 24 Hour Vital Signs Date Time Temp Pulse Resp B/P (MAP) Pulse Ox O2 Delivery O2 Flow Rate FiO2 08/22/19 12:00 Mechanical Ventilator Mechanical Ventilator 08/22/19 12:00 98.7 66 21 121/67 (85) 99 08/22/19 12:00 40 08/22/19 10:33 58 20 40 08/22/19 09:11 63 122/58 08/22/19 09:05 60 20 40 08/22/19 08:00 62 08/22/19 08:00 98.5 63 25 122/58 (79) 94 08/22/19 08:00 40 08/22/19 08:00 Mechanical Ventilator Mechanical Ventilator 08/22/19 07:14 65 22 40 08/22/19 04:34 65 21 40 08/22/19 04:00 98.2 67 20 127/60 (82) 98 08/22/19 04:00 Mechanical Ventilator Mechanical Ventilator 08/22/19 04:00 65 08/22/19 04:00 40 08/22/19 02:43 65 22 40 2/1/20 00:42 61 20 40 08/22/19 00:00 98.4 67 20 126/60 (82) 100 08/22/19 00:00 61 08/22/19 00:00 40 08/22/19 00:00 Mechanical Ventilator Mechanical Ventilator 08/21/19 23:10 84 22 40 08/21/19 22:02 70 141/63 08/21/19 22:01 141/63 08/21/19 20:48 64 20 40 08/21/19 20:34 Mechanical Ventilator Mechanical Ventilator 08/21/19 20:00 40 08/21/19 20:00 98.0 70 20 141/63 (89) 100 08/21/19 20:00 Mechanical Ventilator Mechanical Ventilator 08/21/19 19:55 97.5 69 20 132/62 99 Mechanical Ventilator 40 08/21/19 19:41 97.5 69 20 132/62 99 Mechanical Ventilator 40 08/21/19 19:16 71 08/21/19 18:51 73 20 08/21/19 18:29 97.8 71 20 122/55 99 Mechanical Ventilator 40 08/21/19 17:18 40 08/21/19 17:12 71 22 Mechanical Ventilator 40 08/21/19 16:12 98.4 71 22 143/75 (97) 98 Trach Collar Intake and Output 08/21/19 08/22/19 19:00 07:00 Intake Total 220 ml Output Total 350 ml Balance -130 ml Intake Free Water 70 ml Tube Feeding 150 ml Output Urine Total 350 ml # Voids 102 Laboratory Tests Test 08/21/19 16:40 08/21/19 17:00 08/22/19 05:09 White Blood Count 6.2 K/UL (4.8-10.8) 5.2 K/UL (4.8-10.8) Red Blood Count 3.82 M/UL (4.70-6.10) L 3.73 M/UL (4.70-6.10) L Hemoglobin 9.8 G/DL (14.2-18.0) L 9.8 G/DL (14.2-18.0) L Hematocrit 34.0 % (42.0-52.0) L 31.5 % (42.0-52.0) L Mean Corpuscular Volume 89 FL (80-99) 84 FL (80-99) Mean Corpuscular Hemoglobin 25.6 PG (27.0-31.0) L 26.4 PG (27.0-31.0) L Mean Corpuscular Hemoglobin Concent 28.8 G/DL (32.0-36.0) L 31.3 G/DL (32.0-36.0) L Red Cell Distribution Width 19.4 % (11.6-14.8) H 17.9 % (11.6-14.8) H Platelet Count 168 K/UL (150-450) 188 K/UL (150-450) Mean Platelet Volume 7.9 FL (6.5-10.1) 6.3 FL (6.5-10.1) L Neutrophils (%) (Auto) 72.0 % (45.0-75.0) 69.8 % (45.0-75.0) Lymphocytes (%) (Auto) 13.3 % (20.0-45.0) L 13.4 % (20.0-45.0) L Monocytes (%) (Auto) 9.8 % (1.0-10.0) 10.3 % (1.0-10.0) H Eosinophils (%) (Auto) 3.3 % (0.0-3.0) H 5.1 % (0.0-3.0) H Basophils (%) (Auto) 1.6 % (0.0-2.0) 1.4 % (0.0-2.0) Sodium Level 138 MMOL/L (136-145) 140 MMOL/L (136-145) Potassium Level 4.9 MMOL/L (3.5-5.1) 3.3 MMOL/L (3.5-5.1) L Chloride Level 100 MMOL/L (98-107) 100 MMOL/L (98-107) Carbon Dioxide Level 32 MMOL/L (21-32) 35 MMOL/L (21-32) H Anion Gap 6 mmol/L (5-15) 5 mmol/L (5-15) Blood Urea Nitrogen 44 mg/dL (7-18) H 36 mg/dL (7-18) H Creatinine 1.1 MG/DL (0.55-1.30) 1.0 MG/DL (0.55-1.30) Estimat Glomerular Filtration Rate mL/min (>60) mL/min (>60) Glucose Level 103 MG/DL (74-106) 86 MG/DL (74-106) Lactic Acid Level 1.40 mmol/L (0.4-2.0) Calcium Level 9.2 MG/DL (8.5-10.1) 8.6 MG/DL (8.5-10.1) Total Bilirubin 0.4 MG/DL (0.2-1.0) Aspartate Amino Transf (AST/SGOT) 76 U/L (15-37) H Alanine Aminotransferase (ALT/SGPT) 102 U/L (12-78) H Alkaline Phosphatase 124 U/L (46-116) H Total Creatine Kinase 45 U/L (26-308) Creatine Kinase MB < 0.5 NG/ML (0.0-3.6) Creatine Kinase MB Relative Index 1.1 Troponin I 0.008 ng/mL (0.000-0.056) Pro-B-Type Natriuretic Peptide 3757 pg/mL (0-125) H 5910 pg/mL (0-125) H Total Protein 8.0 G/DL (6.4-8.2) Albumin 2.9 G/DL (3.4-5.0) L Globulin 5.1 g/dL Albumin/Globulin Ratio 0.6 (1.0-2.7) L Urine Color Pale yellow Urine Appearance Clear Urine pH 7 (4.5-8.0) Urine Specific [place] 1.010 (1.005-1.035) Urine Protein Negative (NEGATIVE) Urine Glucose (UA) Negative (NEGATIVE) Urine Ketones Negative (NEGATIVE) Urine Blood Negative (NEGATIVE) Urine Nitrite Negative (NEGATIVE) Urine Bilirubin Negative (NEGATIVE) Urine Urobilinogen Normal MG/DL (0.0-1.0) Urine Leukocyte Esterase Negative (NEGATIVE) Microbiology Date/Time Source Procedure Growth Status 08/21/19 16:42 Nasal Nares - Final Complete 08/21/19 16:42 Nasal Nares - Final Complete 08/21/19 17:30 Rectum Received Height (Feet): 5 Height (Inches): 7.00 Weight (Pounds): 165 Medications Current Medications Medications (Trade) Dose Ordered Sig/Deepak Route PRN Reason Start Time Stop Time Status Last Admin Dose Admin Acetaminophen (Tylenol) 650 mg Q4H PRN GT Mild Pain/Temp > 100.5 08/21/19 20:45 09/20/19 20:44 Al Hydroxide/Mg Hydroxide (Mylanta) 30 ml Q6H PRN GT Indigestion 08/21/19 20:45 09/20/19 20:44 Amiodarone HCl (Cordarone) 200 mg DAILY GT 08/22/19 09:00 09/21/19 08:59 08/22/19 09:06 Amoxicillin/ Clavulanate Potassium (Augmentin) 500 mg BID GT 08/22/19 09:00 08/29/19 08:59 08/22/19 09:04 Ascorbic Acid (Vitamin C) 500 mg DAILY GT 08/22/19 09:00 09/21/19 08:59 08/22/19 09:06 Aspirin (Ecotrin) 81 mg DAILY ORAL 08/23/19 09:00 09/22/19 08:59 Atorvastatin Calcium (Lipitor) 80 mg BEDTIME GT 08/21/19 21:00 09/20/19 20:59 08/21/19 22:02 Bethanechol Chloride (Urecholine) 10 mg TWICE A DAY GT 08/22/19 09:00 09/21/19 08:59 08/22/19 09:05 Carvedilol (Coreg) 3.125 mg EVERY 12 HOURS GT 08/21/19 21:00 09/20/19 20:59 08/22/19 09:11 Dextrose (Dextrose 50%) 25 ml Q30M PRN IV Hypoglycemia 08/21/19 21:00 09/20/19 20:59 Dextrose (Dextrose 50%) 50 ml Q30M PRN IV Hypoglycemia 08/21/19 21:00 09/20/19 20:59 Epoetin Tobin (Epoetin Tobin(ESRD on dialysis)) 10,000 unit SAT-SAT-SAT SUBQ 08/21/19 21:00 09/20/19 20:59 Ferrous Sulfate (Feosol) 330 mg THREE TIMES A DAY GT 08/22/19 09:00 09/21/19 08:59 08/22/19 12:47 Finasteride (Proscar) 5 mg BIOTEC ORAL 08/21/19 21:00 09/20/19 20:59 08/21/19 22:02 Fludrocortisone Acetate (Florinef) 0.05 mg DAILY GT 08/22/19 09:00 09/21/19 08:59 08/22/19 09:06 Furosemide (Lasix) 40 mg EVERY 12 HOURS IV 08/21/19 21:00 09/20/19 20:59 08/22/19 09:04 Heparin Sodium (Porcine) (Heparin 5000 units/ml) 5,000 units EVERY 12 HOURS SUBQ 08/21/19 21:00 09/20/19 20:59 08/22/19 09:09 Insulin Aspart (NovoLOG) BEFORE MEALS AND HS SUBQ 08/21/19 21:00 09/20/19 20:59 Insulin Detemir (Levemir) 6 units BEDTIME SUBQ 08/21/19 21:00 09/20/19 20:59 Levothyroxine Sodium (Synthroid) 25 mcg DAILY@0630 GT 08/22/19 06:30 09/21/19 06:29 08/22/19 06:17 Losartan Potassium (Cozaar) 12.5 mg BEDTIME ORAL 08/21/19 21:00 09/20/19 20:59 08/21/19 22:01 Multivitamins (Multivitamins W/ Minerals 15ml Liquid) 15 ml DAILY GT 08/22/19 09:00 09/21/19 08:59 08/22/19 09:07 Oxycodone/ Acetaminophen (Percocet 5-325) 1 tab Q4H PRN ORAL Severe Breakthru Pain (>7) 08/21/19 21:00 08/28/19 20:59 Pantoprazole (Protonix) 40 mg DAILY@0630 ORAL 08/22/19 06:30 09/21/19 06:29 08/22/19 06:17 Potassium Chloride (K-Dur) 40 meq ONCE ORAL 08/22/19 13:15 08/22/19 15:00 08/22/19 13:27 Simethicone (Mylicon) 80 mg QID PRN GT abd discomfort 08/21/19 21:00 09/20/19 20:59 Thiamine HCl (Vitamin B1) 100 mg DAILY GT 08/22/19 09:00 09/21/19 08:59 08/22/19 09:06 Assessment/Plan Problem List: (1) Abnormal LFTs Assessment & Plan: 73M with abnormal lft's, abd distention, firm, non tender, KUB as below. diarrhea with tube feeds some oral intake no n/v/f/c okay for diet US ordered abd for eval trend labs abx as per ID will follow with recs thank you Gastrostomy or enterostomy tube in the leftward mid abdomen. No clear bowel obstruction or free air. ICD Codes: R94.5 - Abnormal results of liver function studies SNOMED: [id number] Avel Oneill Aug 22, 2019 13:35
[2019-08-22 16:00] VITALS: BP 120/63
--- NOTE | 2019-08-22 19:00 | NUR ---
NURSE NOTES: GT feeding Glucerna 1.2 at 40 ml/hr resumed.pt will be NPO post MN for US abdomen.
--- NOTE | 2019-08-22 19:20 | NUR ---
Report received from HOMER Hudson.Pt resting in bed awake,alert follows command. no resp distress with trach tube ,on current ordered vent settings,tolerating well,no signs of pain or discomfort,SR on the monitor,GTF Glucerna 1.2 at 40 ml/hr off from 7am -7pm,pt is on oral feeding regular diet pureed moist nectar thick with Passimir valve while eating,condom cath leaking,IV heplock to LFA intact skin warm and dry,SR up x2 HOB elevated call light within reach,bed lock in lowest position, at bedside, will continue with plans of care
[2019-08-22 20:00] VITALS: BP 137/62
--- NOTE | 2019-08-22 20:03 | NUR ---
HAND-OFF: Report given to Christiano Cabezas RN..
--- NOTE | 2019-08-22 21:30 | Consultation ---
DATE OF CONSULTATION: 08/22/2019 CARDIOLOGY CONSULTATION CONSULTING PHYSICIAN: Vipul Hazel M.D. REFERRING PHYSICIAN: Syed Enamorado M.D. REASON FOR CONSULTATION: Management of coronary artery disease, cardiomyopathy, and CHF. HISTORY OF PRESENT ILLNESS: The patient is a very pleasant 73-year-old gentleman with a history of ventilator-dependent respiratory failure, status post tracheostomy, dysphagia, status post PEG placement who currently is also eating. The patient also has history of coronary artery disease and history of stent placement at [facility] by 2017. At one point, the patient was being considered for coronary artery bypass graft and was evaluated by Dr. Tavo Aguilar at [facility] and said not a bypass candidate. The patient was admitted for increasing shortness of breath, worsening pulmonary edema, and elevated BNP. The patient was admitted, and a Cardiology consultation was obtained for further evaluation and management. REVIEW OF SYSTEMS: Negative other than what was mentioned in history of present illness. is at bedside. FAMILY HISTORY: Noncontributory. SOCIAL HISTORY: Does not smoke or drink alcohol. Lives in a nursing facility. PHYSICAL EXAMINATION: VITAL SIGNS: Blood pressure of 122/58, pulse is 60, respirations 18, and he is afebrile. HEAD AND NECK: Mild JVD. Status post tracheostomy. LUNGS: Basilar rales. Coarse rhonchi. CARDIOVASCULAR: Regular S1 and S2 with no gallop. ABDOMEN: Soft. Status post G-tube. EXTREMITIES: No pitting edema. LABORATORY DATA: Labs show white count of 5.2, hemoglobin 9.8, hematocrit of 31.5, and platelet count 188,000. Sodium 140, potassium 3.3, BUN of 36, and creatinine of 1.0. His troponin is negative. BNP is 5910. ASSESSMENT AND PLAN: 1. Shortness of breath, could be due to exacerbation of congestive heart failure and elevated BNP of almost 6000. We will continue Lasix 40 mg IV b.i.d., Coreg 3.125 mg b.i.d., and losartan 12.5 mg daily. We will get an echocardiogram to evaluate the ejection fraction and wall motion abnormality. 2. Paroxysmal atrial fibrillation, currently in sinus rhythm, on amiodarone 200 mg daily. The patient is currently off anticoagulation except for subcutaneous heparin. 3. History of coronary artery disease and history of prior stent placement in 2017, currently does not have any chest pain, on Coreg and Lipitor. I will add low-dose aspirin to his medical regimen. 4. Ventilator-dependent respiratory failure and COPD. Further evaluation by Dr. Enamorado. 5. Dysphagia, status post G-tube, but also the patient eats food. 6. Hypokalemia. Potassium was replaced. Thank you very much, Dr. Enamorado, for allowing me to participate in the care of this patient. Please do not hesitate to contact me for any questions regarding my evaluation. Vipul Hazel M.D. DR: DYLAN JOB#: [id number] CC:
[2019-08-22] MEDS: Levemir Flexpen SUBQ SCH (22:45)
[2019-08-22] MEDS: Atorvastatin 80mg tab GT SCH (23:03)
[2019-08-22] MEDS: Losartan 25mg tab ORAL SCH (23:06)
[2019-08-23] VITALS: BP 135/63
--- NOTE | 2019-08-23 02:30 | NUR ---
NURSE NOTES: Report received from RUSSELL travis RN.Patient is sleeping in bed with no acute distress noted. Tolerating well with current vent settings. o2 saturating 96-99%. Denies any pain or discomfort at this time. vss. SR on monitor. Afebrile. condom cath in place with clear/ yellow urine. call light in reach.will continue to monitor.
--- NOTE | 2019-08-23 03:00 | History and Physical Report ---
DATE OF ADMISSION: 08/22/2019 CHIEF COMPLAINT: CHF. HISTORY OF PRESENT ILLNESS: The patient is a 73-year-old male. He has a history of COPD, chronic respiratory failure, congestive heart failure, and anemia. He was transferred from a [place] [facility] facility with complaints of volume overload and CHF. He had been on oral diuretic therapy, but it failed to improve. He had more progressive edema and worsening shortness of breath. Chest x-ray had evidence of congestive heart failure, however, has failed to respond to outpatient therapy. He is now admitted for further evaluation and care. PAST MEDICAL HISTORY: As above. PAST SURGICAL HISTORY: Include placement of trach. CURRENT MEDICATIONS: Reconciled and reviewed. ALLERGIES: None. FAMILY HISTORY: None. SOCIAL HISTORY: Negative for alcohol or drugs. The patient is a prior smoker, but quit. REVIEW OF SYSTEMS: GENERAL: No fever or chills. HEENT: No headaches or visual changes. CARDIOPULMONARY: No chest pain. Positive shortness of breath. GASTROINTESTINAL: No nausea or vomiting. GENITOURINARY: No urgency or frequency. MUSCULOSKELETAL: No joint pain or swelling. NEUROLOGIC: No evidence of seizures. PHYSICAL EXAMINATION: VITAL SIGNS: Temperature 98 degrees, blood pressure 120/76, pulse 80, and respirations 20. GENERAL: The patient is well-developed, in no apparent distress. HEART: Regular rate and rhythm. LUNGS: Lungs are clear. ABDOMEN: Soft, nontender, and nondistended. EXTREMITIES: Without clubbing or cyanosis. There is trace edema noted. DIAGNOSTIC DATA: Chest x-ray at the [place] [facility] facility showed CHF. ASSESSMENT: This is a pleasant male with a history of chronic respiratory failure admitted with complaints of shortness of breath due to CHF exacerbation. PROBLEMS: 1. Respiratory failure. 2. CHF exacerbation. 3. Pulmonary edema. 4. History of chronic respiratory failure. 5. Anemia. PLAN: 1. IV diuretic therapy. 2. Monitor chest x-ray, lytes, and volume status closely. 3. Continue vent support. 4. Respiratory treatments. 5. Pulmonary and Cardiology evaluations will be obtained. Reed Pérez M.D. DR: MODESTO JOB#: [id number] CC:
[2019-08-23 04:00] VITALS: BP 136/63
[2019-08-23 05:52] LABS: BASOPHILS % (AUTO) 1.3 % (0.0-2.0); HEMATOCRIT 31.7 % (42.0-52.0); HEMOGLOBIN 10.2 G/DL (14.2-18.0); LYMPHOCYTES % (AUTO) 16.3 % (20.0-45.0); MEAN CORPUSCULAR VOLUME 84 FL (80-99); MONOCYTES % (AUTO) 11.2 % (1.0-10.0); NEUTROPHILS % (AUTO) 67.2 % (45.0-75.0); PLATELET COUNT 202 K/UL (150-450); RED BLOOD COUNT 3.76 M/UL (4.70-6.10); RED CELL DISTRIBUTION WIDTH 18.1 % (11.6-14.8); WHITE BLOOD COUNT 5.6 K/UL (4.8-10.8)
[2019-08-23 05:57] LABS: INR 1.2 (0.9-1.1)
[2019-08-23 06:16] LABS: ALANINE AMINOTRANSFERASE 74 U/L (12-78); ALBUMIN 2.8 G/DL (3.4-5.0); ALBUMIN/GLOBULIN RATIO 0.6 (1.0-2.7); ALKALINE PHOSPHATASE 114 U/L (46-116); ANION GAP 8 mmol/L (5-15); ASPARTATE AMINO TRANSFERASE 39 U/L (15-37); BILIRUBIN,TOTAL 0.7 MG/DL (0.2-1.0); BLOOD UREA NITROGEN 25 mg/dL (7-18); CALCIUM 8.5 MG/DL (8.5-10.1); CARBON DIOXIDE 34 MMOL/L (21-32); CHLORIDE 99 MMOL/L (98-107); CHOLESTEROL 58 MG/DL (< 200); HDL CHOLESTEROL 34 MG/DL (40-60); POTASSIUM 3.2 MMOL/L (3.5-5.1); SODIUM 141 MMOL/L (136-145); TRIGLYCERIDES 51 MG/DL (30-150)
[2019-08-23] MEDS: Levothyroxine 25mcg tab GT SCH (06:29)
[2019-08-23] MEDS: NovoLOG Insulin Flexpen SUBQ SCH ×4 (06:29→21:00)
--- NOTE | 2019-08-23 07:26 | NUR ---
HAND-OFF: Report given to ELIZABETH CORONEL.NO ACUTE DISTRESS NOTED.
--- NOTE | 2019-08-23 07:30 | NUR ---
NURSE NOTES: Report received from Elba Mejia RN.Pt awake,alert oriented,on current ordered vent settings,tolerating well no resp distress presented,denies any c/o pain or discomfort,SR on the monitor,GT feeding clamped at this time,pt kept NPO for US Abdomen,condom cath in placed,draining yellow urine,SR u[p x2 HOB elevated,call light within reach at bedside bed lock in lowest position,will continue with plans of care.
[2019-08-23 08:00] VITALS: BP 142/63
[2019-08-23] MEDS: Ferrous Sulfate 300 MG/5 ML UDC GT SCH ×3 (09:00→17:42)
[2019-08-23] MEDS: Multivitamins W/Minerals 15 ML UDC GT SCH (09:00)
[2019-08-23] MEDS: Thiamine 100mg tab GT SCH (09:02)
[2019-08-23] MEDS: Heparin 5000 units/ml inj SUBQ SCH ×2 (09:02→21:15)
[2019-08-23] MEDS: Ascorbic Acid 500mg tab GT SCH (09:02)
[2019-08-23] MEDS: Bethanechol 25mg Tab GT SCH ×2 (09:03→17:42)
[2019-08-23] MEDS: Aspirin EC 81mg tab ORAL SCH (09:03)
[2019-08-23] MEDS: Amiodarone 200mg tab GT SCH (09:03)
--- NOTE | 2019-08-23 10:30 | NUR ---
NURSE NOTES: with ongoing procedure,US of Abdomen,US Tech Spring Larson at bedside.
--- NOTE | 2019-08-23 10:35 | Pulmonology Progress Note ---
Assessment/Plan Assessment/Plan IMPRESSION CHF pulmonary edema protein calorie malnutrition GINETTE anemia, chronic disease respiratory failure chronic trach gt orthostatic hypotension PLAN VENT as is diurese cardiology evaluation monitor cxr- edema not yet resolved supportive care follow up labs and recommend out of bed po with caution dc to snf when stable impression, plan, and exam edited and reviewed in detail care discussed with RN Subjective Allergies: Coded Allergies: No Known Allergies (Unverified , 08/21/19) Subjective awake comfortable no distress Objective Last 24 Hour Vital Signs Date Time Temp Pulse Resp B/P (MAP) Pulse Ox O2 Delivery O2 Flow Rate FiO2 08/23/19 09:03 61 136/63 08/23/19 06:50 61 20 40 08/23/19 05:30 62 20 40 08/23/19 04:00 56 08/23/19 04:00 98.7 59 20 136/63 (87) 100 08/23/19 04:00 40 08/23/19 04:00 Mechanical Ventilator Mechanical Ventilator 08/23/19 03:05 58 20 40 08/23/19 00:48 58 20 40 08/23/19 00:00 98.0 61 20 135/63 (87) 100 08/23/19 00:00 40 08/23/19 00:00 55 08/23/19 00:00 Mechanical Ventilator Mechanical Ventilator 08/22/19 23:06 137/62 08/22/19 23:05 62 21 40 08/22/19 23:04 62 137/62 08/22/19 21:30 59 12 40 08/22/19 20:00 97.5 62 20 137/62 (87) 100 08/22/19 20:00 Mechanical Ventilator Mechanical Ventilator 08/22/19 20:00 59 08/22/19 19:20 58 20 40 08/22/19 17:08 63 21 40 08/22/19 16:00 40 08/22/19 16:00 64 08/22/19 16:00 98.2 66 20 120/63 (82) 95 08/22/19 16:00 Mechanical Ventilator Mechanical Ventilator 08/22/19 15:15 69 22 40 08/22/19 13:22 63 21 40 08/22/19 12:00 Mechanical Ventilator Mechanical Ventilator 08/22/19 12:00 98.7 66 21 121/67 (85) 99 08/22/19 12:00 59 08/22/19 12:00 40 Intake and Output 08/22/19 08/23/19 19:00 07:00 Intake Total 265 ml 225 ml Output Total 1100 ml Balance 265 ml -875 ml Intake Oral 240 ml Free Water 100 ml Tube Feeding 25 ml 125 ml Output Urine Total 1100 ml # Bowel Movements 1 2 Objective WDWN NAD trach and vent reduced breath sounds bilaterally without rhonchi or wheeze [id number] without MRG NABS nontender no HSM; Gt no CC some edema weak nonfocal Microbiology Date/Time Source Procedure Growth Status 08/21/19 16:42 Blood Blood Culture - Preliminary NO GROWTH AFTER 24 HOURS Resulted 08/21/19 16:42 Nasal Nares - Final Complete 08/21/19 16:42 Nasal Nares - Final Complete 08/21/19 17:30 Rectum Received Laboratory Tests 08/23/19 04:34: White Blood Count 5.6, Red Blood Count 3.76L, Hemoglobin 10.2L, Hematocrit 31.7L , Mean Corpuscular Volume 84, Mean Corpuscular Hemoglobin 27.2, Mean Corpuscular Hemoglobin Concent 32.2, Red Cell Distribution Width 18.1H, Platelet Count 202, Mean Platelet Volume 6.4L, Neutrophils (%) (Auto) 67.2, Lymphocytes (%) (Auto) 16.3L, Monocytes (%) (Auto) 11.2H, Eosinophils (%) (Auto ) 4.0H, Basophils (%) (Auto) 1.3, Prothrombin Time 12.2H, Prothromb Time International Ratio 1.2H, Activated Partial Thromboplast Time 35H, Sodium Level 141, Potassium Level 3.2L, Chloride Level 99, Carbon Dioxide Level 34H, Anion Gap 8, Blood Urea Nitrogen 25H, Creatinine 1.0, Estimat Glomerular Filtration Rate , Glucose Level 87, Calcium Level 8.5, Total Bilirubin 0.7, Aspartate Amino Transf (AST/SGOT) 39H, Alanine Aminotransferase (ALT/SGPT) 74, Alkaline Phosphatase 114, Troponin I 0.020, C-Reactive Protein, Quantitative 4.3H, Pro-B- Type Natriuretic Peptide 6973H, Total Protein 7.8, Albumin 2.8L, Globulin 5.0, Albumin/Globulin Ratio 0.6L, Triglycerides Level 51, Cholesterol Level 58, LDL Cholesterol 20, HDL Cholesterol 34L, Cholesterol/HDL Ratio 1.7L, Amylase Level 41, Lipase 109 Current Medications Medications (Trade) Dose Ordered Sig/Deepak Route PRN Reason Start Time Stop Time Status Last Admin Dose Admin Acetaminophen (Tylenol) 650 mg Q4H PRN GT Mild Pain/Temp > 100.5 08/21/19 20:45 09/20/19 20:44 Al Hydroxide/Mg Hydroxide (Mylanta) 30 ml Q6H PRN GT Indigestion 08/21/19 20:45 09/20/19 20:44 Amiodarone HCl (Cordarone) 200 mg DAILY GT 08/22/19 09:00 09/21/19 08:59 08/23/19 09:03 Amoxicillin/ Clavulanate Potassium (Augmentin) 500 mg BID GT 08/22/19 09:00 08/29/19 08:59 08/23/19 09:01 Ascorbic Acid (Vitamin C) 500 mg DAILY GT 08/22/19 09:00 09/21/19 08:59 08/23/19 09:02 Aspirin (Ecotrin) 81 mg DAILY ORAL 08/23/19 09:00 09/22/19 08:59 08/23/19 09:03 Atorvastatin Calcium (Lipitor) 80 mg BEDTIME GT 08/21/19 21:00 09/20/19 20:59 08/22/19 23:03 Bethanechol Chloride (Urecholine) 10 mg TWICE A DAY GT 08/22/19 09:00 09/21/19 08:59 08/23/19 09:03 Carvedilol (Coreg) 3.125 mg EVERY 12 HOURS GT 08/21/19 21:00 09/20/19 20:59 08/23/19 09:03 Dextrose (Dextrose 50%) 25 ml Q30M PRN IV Hypoglycemia 08/21/19 21:00 09/20/19 20:59 Dextrose (Dextrose 50%) 50 ml Q30M PRN IV Hypoglycemia 08/21/19 21:00 09/20/19 20:59 Epoetin Tobin (Epoetin Tobin(ESRD on dialysis)) 10,000 unit SAT-WED-SAT SUBQ 08/21/19 21:00 09/20/19 20:59 Ferrous Sulfate (Feosol) 330 mg THREE TIMES A DAY GT 08/22/19 09:00 09/21/19 08:59 08/23/19 09:00 Finasteride (Proscar) 5 mg BIOTEC ORAL 08/21/19 21:00 09/20/19 20:59 08/22/19 23:04 Fludrocortisone Acetate (Florinef) 0.05 mg DAILY GT 08/22/19 09:00 09/21/19 08:59 08/23/19 09:02 Furosemide (Lasix) 40 mg EVERY 12 HOURS IV 08/21/19 21:00 09/20/19 20:59 08/23/19 09:00 Heparin Sodium (Porcine) (Heparin 5000 units/ml) 5,000 units EVERY 12 HOURS SUBQ 08/21/19 21:00 09/20/19 20:59 08/23/19 09:02 Insulin Aspart (NovoLOG) BEFORE MEALS AND HS SUBQ 08/21/19 21:00 09/20/19 20:59 Insulin Detemir (Levemir) 6 units BEDTIME SUBQ 08/21/19 21:00 09/20/19 20:59 Levothyroxine Sodium (Synthroid) 25 mcg DAILY@0630 GT 08/22/19 06:30 09/21/19 06:29 08/23/19 06:29 Losartan Potassium (Cozaar) 12.5 mg BEDTIME ORAL 08/21/19 21:00 09/20/19 20:59 08/22/19 23:06 Multivitamins (Multivitamins W/ Minerals 15ml Liquid) 15 ml DAILY GT 08/22/19 09:00 09/21/19 08:59 08/23/19 09:00 Oxycodone/ Acetaminophen (Percocet 5-325) 1 tab Q4H PRN ORAL Severe Breakthru Pain (>7) 08/21/19 21:00 08/28/19 20:59 Pantoprazole (Protonix) 40 mg DAILY@0630 ORAL 08/22/19 06:30 09/21/19 06:29 08/23/19 06:29 Simethicone (Mylicon) 80 mg QID PRN GT abd discomfort 08/21/19 21:00 09/20/19 20:59 Thiamine HCl (Vitamin B1) 100 mg DAILY GT 08/22/19 09:00 09/21/19 08:59 08/23/19 09:02 Syed Enamorado MD Aug 23, 2019 10:35
--- NOTE | 2019-08-23 11:00 | NUR ---
NURSE NOTES: Dr Enamorado at bedside,informed re low K level,ordered for Kdur 40 meq GT.
--- NOTE | 2019-08-23 11:16 | Surgery Progress Note ---
Surgery Progress Note Subjective Additional Comments no acute events comfortable non n/v/f/c Objective Last 24 Hour Vital Signs Date Time Temp Pulse Resp B/P (MAP) Pulse Ox O2 Delivery O2 Flow Rate FiO2 08/23/19 09:03 61 136/63 08/23/19 06:50 61 20 40 08/23/19 05:30 62 20 40 08/23/19 04:00 56 08/23/19 04:00 98.7 59 20 136/63 (87) 100 08/23/19 04:00 40 08/23/19 04:00 Mechanical Ventilator Mechanical Ventilator 08/23/19 03:05 58 20 40 08/23/19 00:48 58 20 40 08/23/19 00:00 98.0 61 20 135/63 (87) 100 08/23/19 00:00 40 08/23/19 00:00 55 08/23/19 00:00 Mechanical Ventilator Mechanical Ventilator 08/22/19 23:06 137/62 08/22/19 23:05 62 21 40 08/22/19 23:04 62 137/62 08/22/19 21:30 59 12 40 08/22/19 20:00 97.5 62 20 137/62 (87) 100 08/22/19 20:00 Mechanical Ventilator Mechanical Ventilator 08/22/19 20:00 59 08/22/19 19:20 58 20 40 08/22/19 17:08 63 21 40 08/22/19 16:00 40 08/22/19 16:00 64 08/22/19 16:00 98.2 66 20 120/63 (82) 95 08/22/19 16:00 Mechanical Ventilator Mechanical Ventilator 08/22/19 15:15 69 22 40 08/22/19 13:22 63 21 40 08/22/19 12:00 Mechanical Ventilator Mechanical Ventilator 08/22/19 12:00 98.7 66 21 121/67 (85) 99 08/22/19 12:00 59 08/22/19 12:00 40 I&O Intake and Output 08/22/19 08/23/19 19:00 07:00 Intake Total 265 ml 225 ml Output Total 1100 ml Balance 265 ml -875 ml Intake Oral 240 ml Free Water 100 ml Tube Feeding 25 ml 125 ml Output Urine Total 1100 ml # Bowel Movements 1 2 Dressing: other Wound: other Drains: other Cardiovascular: RSR Respiratory: decreased breath sounds Abdomen: non-tender, present bowel sounds Extremities: no edema, no tenderness Laboratory Tests Test 08/23/19 04:34 White Blood Count 5.6 K/UL (4.8-10.8) Red Blood Count 3.76 M/UL (4.70-6.10) L Hemoglobin 10.2 G/DL (14.2-18.0) L Hematocrit 31.7 % (42.0-52.0) L Mean Corpuscular Volume 84 FL (80-99) Mean Corpuscular Hemoglobin 27.2 PG (27.0-31.0) Mean Corpuscular Hemoglobin Concent 32.2 G/DL (32.0-36.0) Red Cell Distribution Width 18.1 % (11.6-14.8) H Platelet Count 202 K/UL (150-450) Mean Platelet Volume 6.4 FL (6.5-10.1) L Neutrophils (%) (Auto) 67.2 % (45.0-75.0) Lymphocytes (%) (Auto) 16.3 % (20.0-45.0) L Monocytes (%) (Auto) 11.2 % (1.0-10.0) H Eosinophils (%) (Auto) 4.0 % (0.0-3.0) H Basophils (%) (Auto) 1.3 % (0.0-2.0) Prothrombin Time 12.2 SEC (9.30-11.50) H Prothromb Time International Ratio 1.2 (0.9-1.1) H Activated Partial Thromboplast Time 35 SEC (23-33) H Sodium Level 141 MMOL/L (136-145) Potassium Level 3.2 MMOL/L (3.5-5.1) L Chloride Level 99 MMOL/L (98-107) Carbon Dioxide Level 34 MMOL/L (21-32) H Anion Gap 8 mmol/L (5-15) Blood Urea Nitrogen 25 mg/dL (7-18) H Creatinine 1.0 MG/DL (0.55-1.30) Estimat Glomerular Filtration Rate mL/min (>60) Glucose Level 87 MG/DL (74-106) Calcium Level 8.5 MG/DL (8.5-10.1) Total Bilirubin 0.7 MG/DL (0.2-1.0) Aspartate Amino Transf (AST/SGOT) 39 U/L (15-37) H Alanine Aminotransferase (ALT/SGPT) 74 U/L (12-78) Alkaline Phosphatase 114 U/L (46-116) Troponin I 0.020 ng/mL (0.000-0.056) C-Reactive Protein, Quantitative 4.3 mg/dL (0.00-0.90) H Pro-B-Type Natriuretic Peptide 6973 pg/mL (0-125) H Total Protein 7.8 G/DL (6.4-8.2) Albumin 2.8 G/DL (3.4-5.0) L Globulin 5.0 g/dL Albumin/Globulin Ratio 0.6 (1.0-2.7) L Triglycerides Level 51 MG/DL (30-150) Cholesterol Level 58 MG/DL (< 200) LDL Cholesterol 20 mg/dL (<100) HDL Cholesterol 34 MG/DL (40-60) L Cholesterol/HDL Ratio 1.7 (3.3-4.4) L Amylase Level 41 U/L (25-115) Lipase 109 U/L (73-393) Plan Problems: (1) Abnormal LFTs Assessment & Plan: 73M with abnormal lft's, abd distention, firm, non tender, KUB as below. diarrhea with tube feeds some oral intake no n/v/f/c okay for diet US ordered abd for eval trend labs abx as per ID will follow with recs thank you Gastrostomy or enterostomy tube in the leftward mid abdomen. No clear bowel obstruction or free air. Avel Oneill Aug 23, 2019 11:16
--- NOTE | 2019-08-23 11:24 | NUR ---
RD ASSESSMENT & RECOMMENDATIONS SEE CARE ACTIVITY FOR COMPLETE ASSESSMENT DAILY ESTIMATED NEEDS: Needs based on Wound, critical care 71.7kg 22-30 kcals/kg 3947-6680 total kcals 1.25-2 g protein/kg 90-143 g total protein 25-30 mL/kg 8717-1038 total fluid mLs NUTRITION DIAGNOSIS: Swallowing difficulty r/t resp status as evidenced by pt w/ trach and PEG, on oral diet w/ PMV and texture modifications. CURRENT DIET: Regular puree w/ NTL CURRENT TF:+ HS feeds, 12 hrs (7pm-7am) Glucerna 1.2 @40 PO DIET RECOMMENDATIONS: Diet as ordered ENTERAL NUTRITION RECOMMENDATIONS: Rec to INCREASE to rate of 75ml/hr x12 hrs to provide 900ml, 1080 kcal, 54g pro, 725ml free h2O - Rec to INCREASE NIGHT FEEDS to better meet est needs until pt is observed to have >75% intake on daily meals. - TF at goal to meet >50 % est needs. - Flush per MD, HOB Over 30 degrees ADDITIONAL RECOMMENDATIONS: 1) [employer] eval for texture 2) maintain accurate bed scale wts 3) Wound care: Add EVERARDO BID via GT 4) On lasix, monitor lytes daily 5) Monitor po intake
[2019-08-23 12:00] VITALS: BP 136/63
--- NOTE | 2019-08-23 12:00 | NUR ---
NURSE NOTES: Pt ate lunch with Passimir Valve ,tolerated well no aspiration noted.
--- NOTE | 2019-08-23 12:26 | General Progress Note ---
Assessment/Plan Problem List: (1) Ventilator dependent ICD Codes: Z99.11 - Dependence on respirator [ventilator] status SNOMED: 645705225 (2) CHF exacerbation ICD Codes: I50.9 - Heart failure, unspecified SNOMED: 801487155, 42590511582945 (3) Abnormal LFTs ICD Codes: R94.5 - Abnormal results of liver function studies SNOMED: 158170344 (4) Abnormal laboratory test result ICD Codes: R89.9 - Unspecified abnormal finding in specimens from other organs , systems and tissues SNOMED: 780164233 Status: stable Assessment/Plan: stable iv lasix o2 resp rx suctioning po abx monitor cxr monitor labs amiodarone rx Subjective ROS Limited/Unobtainable: No Constitutional: Reports: malaise, weakness HEENT: Reports: no symptoms Cardiovascular: Reports: no symptoms Respiratory: Reports: cough, shortness of breath Gastrointestinal/Abdominal: Reports: no symptoms Genitourinary: Reports: no symptoms Neurologic/Psychiatric: Reports: no symptoms Endocrine: Reports: no symptoms Hematologic/Lymphatic: Reports: anemia Allergies: Coded Allergies: No Known Allergies (Unverified , 08/21/19) All Systems: reviewed and negative except above Subjective no events. stable on the vent. cxr unchanged. no fevers or chills. Objective Last 24 Hour Vital Signs Date Time Temp Pulse Resp B/P (MAP) Pulse Ox O2 Delivery O2 Flow Rate FiO2 08/23/19 12:05 Mechanical Ventilator Mechanical Ventilator 08/23/19 12:05 40 08/23/19 12:00 96.3 63 20 136/63 (87) 100 08/23/19 09:03 61 136/63 08/23/19 08:00 40 08/23/19 08:00 62 08/23/19 08:00 Mechanical Ventilator Mechanical Ventilator 08/23/19 08:00 98.2 61 20 142/63 (89) 100 08/23/19 06:50 61 20 40 08/23/19 05:30 62 20 40 08/23/19 04:00 56 08/23/19 04:00 98.7 59 20 136/63 (87) 100 08/23/19 04:00 40 08/23/19 04:00 Mechanical Ventilator Mechanical Ventilator 08/23/19 03:05 58 20 40 2/2/20 00:48 58 20 40 08/23/19 00:00 98.0 61 20 135/63 (87) 100 08/23/19 00:00 40 08/23/19 00:00 55 08/23/19 00:00 Mechanical Ventilator Mechanical Ventilator 08/22/19 23:06 137/62 08/22/19 23:05 62 21 40 08/22/19 23:04 62 137/62 08/22/19 21:30 59 12 40 08/22/19 20:00 97.5 62 20 137/62 (87) 100 08/22/19 20:00 Mechanical Ventilator Mechanical Ventilator 08/22/19 20:00 59 08/22/19 19:20 58 20 40 08/22/19 17:08 63 21 40 08/22/19 16:00 40 08/22/19 16:00 64 08/22/19 16:00 98.2 66 20 120/63 (82) 95 08/22/19 16:00 Mechanical Ventilator Mechanical Ventilator 08/22/19 15:15 69 22 40 08/22/19 13:22 63 21 40 Intake and Output 08/22/19 08/23/19 19:00 07:00 Intake Total 265 ml 225 ml Output Total 1100 ml Balance 265 ml -875 ml Intake Oral 240 ml Free Water 100 ml Tube Feeding 25 ml 125 ml Output Urine Total 1100 ml # Bowel Movements 1 2 Laboratory Tests 08/23/19 04:34: White Blood Count 5.6, Red Blood Count 3.76L, Hemoglobin 10.2L, Hematocrit 31.7L , Mean Corpuscular Volume 84, Mean Corpuscular Hemoglobin 27.2, Mean Corpuscular Hemoglobin Concent 32.2, Red Cell Distribution Width 18.1H, Platelet Count 202, Mean Platelet Volume 6.4L, Neutrophils (%) (Auto) 67.2, Lymphocytes (%) (Auto) 16.3L, Monocytes (%) (Auto) 11.2H, Eosinophils (%) (Auto ) 4.0H, Basophils (%) (Auto) 1.3, Prothrombin Time 12.2H, Prothromb Time International Ratio 1.2H, Activated Partial Thromboplast Time 35H, Sodium Level 141, Potassium Level 3.2L, Chloride Level 99, Carbon Dioxide Level 34H, Anion Gap 8, Blood Urea Nitrogen 25H, Creatinine 1.0, Estimat Glomerular Filtration Rate , Glucose Level 87, Calcium Level 8.5, Total Bilirubin 0.7, Aspartate Amino Transf (AST/SGOT) 39H, Alanine Aminotransferase (ALT/SGPT) 74, Alkaline Phosphatase 114, Troponin I 0.020, C-Reactive Protein, Quantitative 4.3H, Pro-B- Type Natriuretic Peptide 6973H, Total Protein 7.8, Albumin 2.8L, Globulin 5.0, Albumin/Globulin Ratio 0.6L, Triglycerides Level 51, Cholesterol Level 58, LDL Cholesterol 20, HDL Cholesterol 34L, Cholesterol/HDL Ratio 1.7L, Amylase Level 41, Lipase 109 Height (Feet): 5 Height (Inches): 7.00 Weight (Pounds): 157 General Appearance: WD/WN, alert Neck: supple Cardiovascular: regular rhythm Respiratory/Chest: chest wall non-tender, lungs clear, normal breath sounds, no respiratory distress, no accessory muscle use Abdomen: normal bowel sounds, non tender, soft, no organomegaly, no mass Edema: no edema noted Arm (L), no edema noted Arm (R), no edema noted Leg (L), no edema noted Leg (R), no edema noted Pedal (L), no edema noted Pedal (R), no edema noted Generalized Neurologic: alert, responsive Reed Pérez MD Aug 23, 2019 12:26
--- NOTE | 2019-08-23 15:00 | NUR ---
NURSE NOTES: Turned and repositioned,kept dry and intact .
[2019-08-23 16:00] VITALS: BP 115/60
--- NOTE | 2019-08-23 19:30 | NUR ---
NURSE NOTES: Received this 73yo male pt in no acute distress; awake, alert, oriented x4; currently denies pain, denies SOB. Remains vented per trach and noted vent settings of AC20 TV450 fiO2.40 peep 5 and saturating 100%. Trach site clean, no drainage, no bleeding. at the bedside. NSR, SB on the monitor, afebrile; BP stable. Pt has a PEG and tube feeding with Glucerna 1.2 to be started. Condom cath intact. HL on LFA intact. Plan of care explained. Will continue to monitor. Pt has sacral DTI; will order P200 bed first thing in AM
--- NOTE | 2019-08-23 19:32 | NUR ---
HAND-OFF: Report given to Eduard Crocker RN..
[2019-08-23 20:00] VITALS: BP 121/62
[2019-08-23] MEDS: Levemir Flexpen SUBQ SCH (21:00)
[2019-08-23] MEDS: Atorvastatin 80mg tab GT SCH (21:12)
[2019-08-23] MEDS: Losartan 25mg tab ORAL SCH (21:13)
[2019-08-24] VITALS: BP 117/60
--- NOTE | 2019-08-24 | NUR ---
NURSE NOTES: Sleeping with HOB elevated. No distress, HR 56; BP stable, afebrile. Diuresing well post Lasix
[2019-08-24 04:00] VITALS: BP 130/60
--- NOTE | 2019-08-24 04:00 | NUR ---
NURSE NOTES: Slept well; no distress. Ventilator settings well tolerated. GTF continues at 40ml/h. Afebrile. HR 57, BP stable. Condom cath intact.
[2019-08-24 05:19] LABS: EOSINOPHILS % (AUTO) 5.3 % (0.0-3.0); HEMATOCRIT 33.5 % (42.0-52.0); HEMOGLOBIN 10.7 G/DL (14.2-18.0); LYMPHOCYTES % (AUTO) 18.8 % (20.0-45.0); MEAN CORPUSCULAR VOLUME 84 FL (80-99); MONOCYTES % (AUTO) 11.3 % (1.0-10.0); NEUTROPHILS % (AUTO) 63.6 % (45.0-75.0); PLATELET COUNT 227 K/UL (150-450); RED CELL DISTRIBUTION WIDTH 17.6 % (11.6-14.8); WHITE BLOOD COUNT 5.6 K/UL (4.8-10.8)
[2019-08-24] MEDS: Levothyroxine 25mcg tab GT SCH (05:56)
[2019-08-24] MEDS: NovoLOG Insulin Flexpen SUBQ SCH ×4 (05:56→21:00)
[2019-08-24 06:11] LABS: ALANINE AMINOTRANSFERASE 65 U/L (12-78); ALBUMIN 2.8 G/DL (3.4-5.0); ALBUMIN/GLOBULIN RATIO 0.6 (1.0-2.7); ALKALINE PHOSPHATASE 118 U/L (46-116); ANION GAP 8 mmol/L (5-15); ASPARTATE AMINO TRANSFERASE 41 U/L (15-37); BILIRUBIN,TOTAL 0.6 MG/DL (0.2-1.0); BLOOD UREA NITROGEN 21 mg/dL (7-18); CALCIUM 8.4 MG/DL (8.5-10.1); CARBON DIOXIDE 32 MMOL/L (21-32); CHLORIDE 101 MMOL/L (98-107); POTASSIUM 3.2 MMOL/L (3.5-5.1); SODIUM 140 MMOL/L (136-145)
--- NOTE | 2019-08-24 06:14 | NUR ---
NURSE NOTES: had 1 mod amt of soft black stool; cleaned and rendered dry. Condom cath leaked and changed. Accucheck 107, no coverage
--- NOTE | 2019-08-24 07:03 | NUR ---
HAND-OFF: Report given to Jack CORONEL.
--- NOTE | 2019-08-24 07:44 | General Progress Note ---
Assessment/Plan Problem List: (1) Ventilator dependent ICD Codes: Z99.11 - Dependence on respirator [ventilator] status SNOMED: 684453572 (2) CHF exacerbation ICD Codes: I50.9 - Heart failure, unspecified SNOMED: 101593555, 84369649375151 (3) Abnormal LFTs ICD Codes: R94.5 - Abnormal results of liver function studies SNOMED: 335974115 (4) Abnormal laboratory test result ICD Codes: R89.9 - Unspecified abnormal finding in specimens from other organs , systems and tissues SNOMED: 509723450 Status: stable Assessment/Plan: stable iv lasix replace lytes o2 resp rx suctioning abx monitor cxr monitor labs amiodarone rx Subjective ROS Limited/Unobtainable: No Constitutional: Reports: malaise, weakness HEENT: Reports: no symptoms Cardiovascular: Reports: no symptoms Respiratory: Reports: cough, shortness of breath Gastrointestinal/Abdominal: Reports: abdomen distended Genitourinary: Reports: no symptoms Neurologic/Psychiatric: Reports: no symptoms Endocrine: Reports: no symptoms Hematologic/Lymphatic: Reports: no symptoms Allergies: Coded Allergies: No Known Allergies (Unverified , 08/21/19) All Systems: reviewed and negative except above Subjective no events. states he feels a little better. still with sob when eating. labs noted Objective Last 24 Hour Vital Signs Date Time Temp Pulse Resp B/P (MAP) Pulse Ox O2 Delivery O2 Flow Rate FiO2 08/24/19 05:14 58 20 40 08/24/19 04:00 57 08/24/19 04:00 Mechanical Ventilator Mechanical Ventilator 08/24/19 04:00 98.4 57 20 130/60 (83) 99 08/24/19 04:00 40 08/24/19 03:11 61 17 40 08/24/19 01:14 59 21 40 08/24/19 00:00 55 08/24/19 00:00 98.4 56 22 117/60 (79) 97 08/24/19 00:00 40 08/24/19 00:00 Mechanical Ventilator Mechanical Ventilator 08/23/19 22:38 63 20 40 08/23/19 21:13 121/62 08/23/19 21:12 60 121/62 08/23/19 20:45 58 21 40 08/23/19 20:33 40 08/23/19 20:00 60 2/2/20 20:00 97.8 60 20 121/62 (81) 100 08/23/19 20:00 Mechanical Ventilator Mechanical Ventilator 08/23/19 19:27 59 20 40 08/23/19 17:22 68 20 40 08/23/19 17:16 57 08/23/19 16:00 Mechanical Ventilator Mechanical Ventilator 08/23/19 16:00 40 08/23/19 16:00 97.4 57 20 115/60 (78) 100 08/23/19 15:13 64 21 40 08/23/19 12:56 62 22 40 08/23/19 12:05 Mechanical Ventilator Mechanical Ventilator 08/23/19 12:05 40 08/23/19 12:00 96.3 63 20 136/63 (87) 100 08/23/19 12:00 54 08/23/19 11:06 55 22 40 08/23/19 09:20 60 21 40 08/23/19 09:03 61 136/63 08/23/19 08:00 40 08/23/19 08:00 62 08/23/19 08:00 Mechanical Ventilator Mechanical Ventilator 08/23/19 08:00 98.2 61 20 142/63 (89) 100 Intake and Output 08/23/19 08/24/19 19:00 07:00 Intake Total 760 ml 460 ml Output Total 2001 ml 1100 ml Balance -1241 ml -640 ml Intake Oral 360 ml Tube Feeding 40 ml 400 ml Other 360 ml 60 ml Output Urine Total 2000 ml 1100 ml Stool Total 1 ml # Bowel Movements 1 3 Laboratory Tests 08/24/19 03:15: White Blood Count 5.6, Red Blood Count 4.00L, Hemoglobin 10.7L, Hematocrit 33.5L , Mean Corpuscular Volume 84, Mean Corpuscular Hemoglobin 26.7L, Mean Corpuscular Hemoglobin Concent 32.0, Red Cell Distribution Width 17.6H, Platelet Count 227, Mean Platelet Volume 6.5, Neutrophils (%) (Auto) 63.6, Lymphocytes (%) (Auto) 18.8L, Monocytes (%) (Auto) 11.3H, Eosinophils (%) (Auto ) 5.3H, Basophils (%) (Auto) 1.0, Sodium Level 140, Potassium Level 3.2L, Chloride Level 101, Carbon Dioxide Level 32, Anion Gap 8, Blood Urea Nitrogen 21H, Creatinine 1.0, Estimat Glomerular Filtration Rate , Glucose Level 98, Calcium Level 8.4L, Total Bilirubin 0.6, Aspartate Amino Transf (AST/SGOT) 41H, Alanine Aminotransferase (ALT/SGPT) 65, Alkaline Phosphatase 118H, Total Protein 7.6, Albumin 2.8L, Globulin 4.8, Albumin/Globulin Ratio 0.6L Height (Feet): 5 Height (Inches): 7.00 Weight (Pounds): 158 General Appearance: WD/WN, alert Neck: supple Cardiovascular: regular rhythm Respiratory/Chest: lungs clear Abdomen: normal bowel sounds, non tender, soft, no organomegaly Edema: no edema noted Arm (L), no edema noted Arm (R), no edema noted Leg (L), no edema noted Leg (R), no edema noted Pedal (L), no edema noted Pedal (R), no edema noted Generalized Reed Pérez MD Aug 24, 2019 07:44
--- NOTE | 2019-08-24 07:50 | NUR ---
NURSE NOTES: received pt in the bed, awake, alert, oriented, vent dependent, vital signs stable, no co pain, no SOB, skin warm and dry to touch, dressing dry and intact on sacral area, tube feeding at night, puree diet during the day, tolerate well, abdomen distended, at bedside, bed in low position, call light, within reach.
[2019-08-24 08:00] VITALS: BP 129/57
--- NOTE | 2019-08-24 08:44 | Pulmonology Progress Note ---
Assessment/Plan Assessment/Plan IMPRESSION CHF pulmonary edema protein calorie malnutrition GINETTE anemia, chronic disease respiratory failure chronic trach gt orthostatic hypotension PLAN VENT as is diurese as able cardiology evaluation monitor cxr- repeat supportive care follow up labs and recommend out of bed as able po with caution dc to snf hope in am impression, plan, and exam edited and reviewed in detail care discussed with RN Subjective Allergies: Coded Allergies: No Known Allergies (Unverified , 08/21/19) Subjective awake remains comfortable no distress Objective Last 24 Hour Vital Signs Date Time Temp Pulse Resp B/P (MAP) Pulse Ox O2 Delivery O2 Flow Rate FiO2 08/24/19 08:00 40 08/24/19 05:14 58 20 40 08/24/19 04:00 57 08/24/19 04:00 Mechanical Ventilator Mechanical Ventilator 08/24/19 04:00 98.4 57 20 130/60 (83) 99 08/24/19 04:00 40 08/24/19 03:11 61 17 40 08/24/19 01:14 59 21 40 08/24/19 00:00 55 08/24/19 00:00 98.4 56 22 117/60 (79) 97 08/24/19 00:00 40 08/24/19 00:00 Mechanical Ventilator Mechanical Ventilator 08/23/19 22:38 63 20 40 08/23/19 21:13 121/62 08/23/19 21:12 60 121/62 08/23/19 20:45 58 21 40 08/23/19 20:33 40 08/23/19 20:00 60 08/23/19 20:00 97.8 60 20 121/62 (81) 100 08/23/19 20:00 Mechanical Ventilator Mechanical Ventilator 08/23/19 19:27 59 20 40 08/23/19 17:22 68 20 40 08/23/19 17:16 57 08/23/19 16:00 Mechanical Ventilator Mechanical Ventilator 08/23/19 16:00 40 08/23/19 16:00 97.4 57 20 115/60 (78) 100 08/23/19 15:13 64 21 40 08/23/19 12:56 62 22 40 08/23/19 12:05 Mechanical Ventilator Mechanical Ventilator 08/23/19 12:05 40 08/23/19 12:00 96.3 63 20 136/63 (87) 100 08/23/19 12:00 54 08/23/19 11:06 55 22 40 08/23/19 09:20 60 21 40 08/23/19 09:03 61 136/63 Intake and Output 08/23/19 08/24/19 18:59 06:59 Intake Total 720 ml 500 ml Output Total 2001 ml 1100 ml Balance -1281 ml -600 ml Intake Oral 360 ml Tube Feeding 440 ml Other 360 ml 60 ml Output Urine Total 2000 ml 1100 ml Stool Total 1 ml # Bowel Movements 1 3 Objective WDWN NAD trach and vent reduced breath sounds bilaterally without rhonchi or wheeze [id number] without MRG NABS nontender no HSM; Gt no CC some edema weak nonfocal Microbiology Date/Time Source Procedure Growth Status 08/21/19 16:42 Blood Blood Culture - Preliminary NO GROWTH AFTER 48 HOURS Resulted 08/21/19 16:42 Nasal Nares - Final Complete 08/21/19 16:42 Nasal Nares - Final Complete 08/21/19 17:30 Rectum VRE Culture - Final Enterococcus Faecium - Vre Complete Laboratory Tests 08/24/19 03:15: White Blood Count 5.6, Red Blood Count 4.00L, Hemoglobin 10.7L, Hematocrit 33.5L , Mean Corpuscular Volume 84, Mean Corpuscular Hemoglobin 26.7L, Mean Corpuscular Hemoglobin Concent 32.0, Red Cell Distribution Width 17.6H, Platelet Count 227, Mean Platelet Volume 6.5, Neutrophils (%) (Auto) 63.6, Lymphocytes (%) (Auto) 18.8L, Monocytes (%) (Auto) 11.3H, Eosinophils (%) (Auto ) 5.3H, Basophils (%) (Auto) 1.0, Sodium Level 140, Potassium Level 3.2L, Chloride Level 101, Carbon Dioxide Level 32, Anion Gap 8, Blood Urea Nitrogen 21H, Creatinine 1.0, Estimat Glomerular Filtration Rate , Glucose Level 98, Calcium Level 8.4L, Total Bilirubin 0.6, Aspartate Amino Transf (AST/SGOT) 41H, Alanine Aminotransferase (ALT/SGPT) 65, Alkaline Phosphatase 118H, Total Protein 7.6, Albumin 2.8L, Globulin 4.8, Albumin/Globulin Ratio 0.6L Current Medications Medications (Trade) Dose Ordered Sig/Deepak Route PRN Reason Start Time Stop Time Status Last Admin Dose Admin Acetaminophen (Tylenol) 650 mg Q4H PRN GT Mild Pain/Temp > 100.5 08/21/19 20:45 09/20/19 20:44 Al Hydroxide/Mg Hydroxide (Mylanta) 30 ml Q6H PRN GT Indigestion 08/21/19 20:45 09/20/19 20:44 Amiodarone HCl (Cordarone) 200 mg DAILY GT 08/22/19 09:00 09/21/19 08:59 08/23/19 09:03 Amoxicillin/ Clavulanate Potassium (Augmentin) 500 mg BID GT 08/22/19 09:00 08/29/19 08:59 08/23/19 17:42 Ascorbic Acid (Vitamin C) 500 mg DAILY GT 08/22/19 09:00 09/21/19 08:59 08/23/19 09:02 Aspirin (Ecotrin) 81 mg DAILY ORAL 08/23/19 09:00 09/22/19 08:59 08/23/19 09:03 Atorvastatin Calcium (Lipitor) 80 mg BEDTIME GT 08/21/19 21:00 09/20/19 20:59 08/23/19 21:12 Bethanechol Chloride (Urecholine) 10 mg TWICE A DAY GT 08/22/19 09:00 09/21/19 08:59 08/23/19 17:42 Carvedilol (Coreg) 3.125 mg EVERY 12 HOURS GT 08/21/19 21:00 09/20/19 20:59 08/23/19 21:12 Dextrose (Dextrose 50%) 25 ml Q30M PRN IV Hypoglycemia 08/21/19 21:00 09/20/19 20:59 Dextrose (Dextrose 50%) 50 ml Q30M PRN IV Hypoglycemia 08/21/19 21:00 09/20/19 20:59 Epoetin Tobin (Epoetin Tobin(ESRD on dialysis)) 10,000 unit SAT-SAT-SAT SUBQ 08/21/19 21:00 09/20/19 20:59 Ferrous Sulfate (Feosol) 330 mg THREE TIMES A DAY GT 08/22/19 09:00 09/21/19 08:59 08/23/19 17:42 Finasteride (Proscar) 5 mg BIOTEC ORAL 08/21/19 21:00 09/20/19 20:59 08/23/19 21:23 Fludrocortisone Acetate (Florinef) 0.05 mg DAILY GT 08/22/19 09:00 09/21/19 08:59 08/23/19 09:02 Furosemide (Lasix) 40 mg EVERY 12 HOURS IV 08/21/19 21:00 09/20/19 20:59 08/23/19 21:13 Heparin Sodium (Porcine) (Heparin 5000 units/ml) 5,000 units EVERY 12 HOURS SUBQ 08/21/19 21:00 09/20/19 20:59 08/23/19 21:15 Insulin Aspart (NovoLOG) BEFORE MEALS AND HS SUBQ 08/21/19 21:00 09/20/19 20:59 Insulin Detemir (Levemir) 6 units BEDTIME SUBQ 08/21/19 21:00 09/20/19 20:59 Levothyroxine Sodium (Synthroid) 25 mcg DAILY@0630 GT 08/22/19 06:30 09/21/19 06:29 08/24/19 05:56 Losartan Potassium (Cozaar) 12.5 mg BEDTIME ORAL 08/21/19 21:00 09/20/19 20:59 08/23/19 21:13 Multivitamins (Multivitamins W/ Minerals 15ml Liquid) 15 ml DAILY GT 08/22/19 09:00 09/21/19 08:59 08/23/19 09:00 Oxycodone/ Acetaminophen (Percocet 5-325) 1 tab Q4H PRN ORAL Severe Breakthru Pain (>7) 08/21/19 21:00 08/28/19 20:59 Pantoprazole (Protonix) 40 mg DAILY@0630 ORAL 08/22/19 06:30 09/21/19 06:29 08/24/19 05:56 Potassium Chloride (K-Dur) 40 meq ONCE ORAL 08/24/19 07:45 08/24/19 09:00 Simethicone (Mylicon) 80 mg QID PRN GT abd discomfort 08/21/19 21:00 09/20/19 20:59 Thiamine HCl (Vitamin B1) 100 mg DAILY GT 08/22/19 09:00 09/21/19 08:59 08/23/19 09:02 Syed Enamorado MD Aug 24, 2019:44
--- NOTE | 2019-08-24 08:52 | Cardiac Electrophysiology PN ---
Assessment/Plan Assessment/Plan 1. Shortness of breath, could be due to exacerbation of congestive heart failure and elevated BNP of almost 6000. Continue Lasix 40 mg IV b.i.d., Coreg 3.125 mg b.i.d., and losartan 12.5 mg daily. Echo pending 2. Paroxysmal atrial fibrillation, currently in sinus rhythm, on amiodarone 200 mg daily, Aspirin and subcutaneous heparin. 3. CAD and history of prior stent in 2017, does not have any chest pain, on Coreg, Lipitor and aspirin 4. Ventilator-dependent respiratory failure and COPD.S/P Tracheostomy. Further evaluation by Dr. Enamorado. 5. Dysphagia, status post G-tube, but also the patient eats food. 6. Hypokalemia. Potassium was replaced. DW and RN at bedside Subjective Subjective No CP or SOB. at bedside feeding patient. Alert in NAD on Abx. On Vent via Tracheostomy Objective Last 24 Hour Vital Signs Date Time Temp Pulse Resp B/P (MAP) Pulse Ox O2 Delivery O2 Flow Rate FiO2 08/24/19 08:05 62 20 40 08/24/19 08:00 40 08/24/19 05:14 58 20 40 08/24/19 04:00 57 08/24/19 04:00 Mechanical Ventilator Mechanical Ventilator 08/24/19 04:00 98.4 57 20 130/60 (83) 99 08/24/19 04:00 40 08/24/19 03:11 61 17 40 08/24/19 01:14 59 21 40 08/24/19 00:00 55 08/24/19 00:00 98.4 56 22 117/60 (79) 97 08/24/19 00:00 40 08/24/19 00:00 Mechanical Ventilator Mechanical Ventilator 08/23/19 22:38 63 20 40 08/23/19 21:13 121/62 08/23/19 21:12 60 121/62 08/23/19 20:45 58 21 40 08/23/19 20:33 40 08/23/19 20:00 60 08/23/19 20:00 97.8 60 20 121/62 (81) 100 08/23/19 20:00 Mechanical Ventilator Mechanical Ventilator 08/23/19 19:27 59 20 40 08/23/19 17:22 68 20 40 2/2/20 17:16 57 08/23/19 16:00 Mechanical Ventilator Mechanical Ventilator 08/23/19 16:00 40 08/23/19 16:00 97.4 57 20 115/60 (78) 100 08/23/19 15:13 64 21 40 08/23/19 12:56 62 22 40 08/23/19 12:05 Mechanical Ventilator Mechanical Ventilator 08/23/19 12:05 40 08/23/19 12:00 96.3 63 20 136/63 (87) 100 08/23/19 12:00 54 08/23/19 11:06 55 22 40 08/23/19 09:20 60 21 40 08/23/19 09:03 61 136/63 Intake and Output 08/23/19 08/24/19 19:00 07:00 Intake Total 760 ml 460 ml Output Total 2001 ml 1100 ml Balance -1241 ml -640 ml Intake Oral 360 ml Tube Feeding 40 ml 400 ml Other 360 ml 60 ml Output Urine Total 2000 ml 1100 ml Stool Total 1 ml # Bowel Movements 1 3 Laboratory Tests Test 08/24/19 03:15 White Blood Count 5.6 K/UL (4.8-10.8) Red Blood Count 4.00 M/UL (4.70-6.10) L Hemoglobin 10.7 G/DL (14.2-18.0) L Hematocrit 33.5 % (42.0-52.0) L Mean Corpuscular Volume 84 FL (80-99) Mean Corpuscular Hemoglobin 26.7 PG (27.0-31.0) L Mean Corpuscular Hemoglobin Concent 32.0 G/DL (32.0-36.0) Red Cell Distribution Width 17.6 % (11.6-14.8) H Platelet Count 227 K/UL (150-450) Mean Platelet Volume 6.5 FL (6.5-10.1) Neutrophils (%) (Auto) 63.6 % (45.0-75.0) Lymphocytes (%) (Auto) 18.8 % (20.0-45.0) L Monocytes (%) (Auto) 11.3 % (1.0-10.0) H Eosinophils (%) (Auto) 5.3 % (0.0-3.0) H Basophils (%) (Auto) 1.0 % (0.0-2.0) Sodium Level 140 MMOL/L (136-145) Potassium Level 3.2 MMOL/L (3.5-5.1) L Chloride Level 101 MMOL/L (98-107) Carbon Dioxide Level 32 MMOL/L (21-32) Anion Gap 8 mmol/L (5-15) Blood Urea Nitrogen 21 mg/dL (7-18) H Creatinine 1.0 MG/DL (0.55-1.30) Estimat Glomerular Filtration Rate mL/min (>60) Glucose Level 98 MG/DL (74-106) Calcium Level 8.4 MG/DL (8.5-10.1) L Total Bilirubin 0.6 MG/DL (0.2-1.0) Aspartate Amino Transf (AST/SGOT) 41 U/L (15-37) H Alanine Aminotransferase (ALT/SGPT) 65 U/L (12-78) Alkaline Phosphatase 118 U/L (46-116) H Total Protein 7.6 G/DL (6.4-8.2) Albumin 2.8 G/DL (3.4-5.0) L Globulin 4.8 g/dL Albumin/Globulin Ratio 0.6 (1.0-2.7) L Microbiology Date/Time Source Procedure Growth Status 08/21/19 16:42 Blood Blood Culture - Preliminary NO GROWTH AFTER 48 HOURS Resulted 08/21/19 16:42 Nasal Nares - Final Complete 08/21/19 16:42 Nasal Nares - Final Complete 08/21/19 17:30 Rectum VRE Culture - Final Enterococcus Faecium - Vre Complete Objective HEAD AND NECK: Mild JVD. Status post tracheostomy. LUNGS: Basilar rales. Coarse rhonchi. CARDIOVASCULAR: Regular S1 and S2 with no gallop. ABDOMEN: Soft. Status post G-tube. EXTREMITIES: No pitting edema. Vipul Hazel MD Aug 24, 2019 08:52
[2019-08-24] MEDS: Ferrous Sulfate 300 MG/5 ML UDC GT SCH ×3 (09:24→17:46)
[2019-08-24] MEDS: Multivitamins W/Minerals 15 ML UDC GT SCH (09:24)
[2019-08-24] MEDS: Ascorbic Acid 500mg tab GT SCH (09:25)
[2019-08-24] MEDS: Aspirin EC 81mg tab ORAL SCH (09:25)
[2019-08-24] MEDS: Amiodarone 200mg tab GT SCH (09:25)
[2019-08-24] MEDS: Bethanechol 25mg Tab GT SCH ×2 (09:26→17:45)
[2019-08-24] MEDS: Thiamine 100mg tab GT SCH (09:26)
[2019-08-24] MEDS: Heparin 5000 units/ml inj SUBQ SCH ×2 (09:29→21:14)
--- NOTE | 2019-08-24 10:00 | NUR ---
NURSE NOTES: K 3.2, 40 meq KCL given as ordered, yellow clear urine.
--- NOTE | 2019-08-24 10:00 | NUR ---
NURSE NOTES: pt VPE rectum, dr. Enamorado notified, no order.
--- NOTE | 2019-08-24 11:11 | Surgery Progress Note ---
Surgery Progress Note Subjective Additional Comments no acute events comfortable exam stable labs improved Objective Last 24 Hour Vital Signs Date Time Temp Pulse Resp B/P (MAP) Pulse Ox O2 Delivery O2 Flow Rate FiO2 08/24/19 09:26 59 129/57 08/24/19 08:05 62 20 40 08/24/19 08:00 97.7 59 20 129/57 (81) 100 08/24/19 08:00 60 08/24/19 08:00 Mechanical Ventilator Mechanical Ventilator 08/24/19 08:00 40 08/24/19 05:14 58 20 40 08/24/19 04:00 57 08/24/19 04:00 Mechanical Ventilator Mechanical Ventilator 08/24/19 04:00 98.4 57 20 130/60 (83) 99 08/24/19 04:00 40 08/24/19 03:11 61 17 40 08/24/19 01:14 59 21 40 08/24/19 00:00 55 08/24/19 00:00 98.4 56 22 117/60 (79) 97 08/24/19 00:00 40 08/24/19 00:00 Mechanical Ventilator Mechanical Ventilator 08/23/19 22:38 63 20 40 08/23/19 21:13 121/62 08/23/19 21:12 60 121/62 08/23/19 20:45 58 21 40 08/23/19 20:33 40 08/23/19 20:00 60 08/23/19 20:00 97.8 60 20 121/62 (81) 100 08/23/19 20:00 Mechanical Ventilator Mechanical Ventilator 08/23/19 19:27 59 20 40 08/23/19 17:22 68 20 40 08/23/19 17:16 57 08/23/19 16:00 Mechanical Ventilator Mechanical Ventilator 08/23/19 16:00 40 08/23/19 16:00 97.4 57 20 115/60 (78) 100 08/23/19 15:13 64 21 40 08/23/19 12:56 62 22 40 08/23/19 12:05 Mechanical Ventilator Mechanical Ventilator 08/23/19 12:05 40 08/23/19 12:00 96.3 63 20 136/63 (87) 100 08/23/19 12:00 54 I&O Intake and Output 08/23/19 08/24/19 19:00 07:00 Intake Total 760 ml 460 ml Output Total 2001 ml 1100 ml Balance -1241 ml -640 ml Intake Oral 360 ml Tube Feeding 40 ml 400 ml Other 360 ml 60 ml Output Urine Total 2000 ml 1100 ml Stool Total 1 ml # Bowel Movements 1 3 Cardiovascular: RSR Respiratory: clear Abdomen: soft, flat, tenderness, present bowel sounds Extremities: no edema, no tenderness Laboratory Tests Test 08/24/19 03:15 White Blood Count 5.6 K/UL (4.8-10.8) Red Blood Count 4.00 M/UL (4.70-6.10) L Hemoglobin 10.7 G/DL (14.2-18.0) L Hematocrit 33.5 % (42.0-52.0) L Mean Corpuscular Volume 84 FL (80-99) Mean Corpuscular Hemoglobin 26.7 PG (27.0-31.0) L Mean Corpuscular Hemoglobin Concent 32.0 G/DL (32.0-36.0) Red Cell Distribution Width 17.6 % (11.6-14.8) H Platelet Count 227 K/UL (150-450) Mean Platelet Volume 6.5 FL (6.5-10.1) Neutrophils (%) (Auto) 63.6 % (45.0-75.0) Lymphocytes (%) (Auto) 18.8 % (20.0-45.0) L Monocytes (%) (Auto) 11.3 % (1.0-10.0) H Eosinophils (%) (Auto) 5.3 % (0.0-3.0) H Basophils (%) (Auto) 1.0 % (0.0-2.0) Sodium Level 140 MMOL/L (136-145) Potassium Level 3.2 MMOL/L (3.5-5.1) L Chloride Level 101 MMOL/L (98-107) Carbon Dioxide Level 32 MMOL/L (21-32) Anion Gap 8 mmol/L (5-15) Blood Urea Nitrogen 21 mg/dL (7-18) H Creatinine 1.0 MG/DL (0.55-1.30) Estimat Glomerular Filtration Rate mL/min (>60) Glucose Level 98 MG/DL (74-106) Calcium Level 8.4 MG/DL (8.5-10.1) L Total Bilirubin 0.6 MG/DL (0.2-1.0) Aspartate Amino Transf (AST/SGOT) 41 U/L (15-37) H Alanine Aminotransferase (ALT/SGPT) 65 U/L (12-78) Alkaline Phosphatase 118 U/L (46-116) H Total Protein 7.6 G/DL (6.4-8.2) Albumin 2.8 G/DL (3.4-5.0) L Globulin 4.8 g/dL Albumin/Globulin Ratio 0.6 (1.0-2.7) L Plan Problems: (1) Abnormal LFTs Assessment & Plan: 73M with abnormal lft's, abd distention, firm, non tender, KUB as below. diarrhea with tube feeds some oral intake no n/v/f/c okay for diet US ordered abd for eval - pending trend labs abx as per ID will follow with recs thank you Gastrostomy or enterostomy tube in the leftward mid abdomen. No clear bowel obstruction or free air. Avel Oneill Aug 24, 2019 11:10
[2019-08-24 12:00] VITALS: BP 141/60
--- NOTE | 2019-08-24 12:00 | NUR ---
NURSE NOTES: pt resting, vital signs stable, wound nurse saw pt, dressing changed, continue monitoring.
--- NOTE | 2019-08-24 15:41 | NUR ---
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 98.5 HR 71 RR 22 B/P 143/75 AC 20 TV 450 FIO2 40% PEEP 5 AST 76 ALT 102 ALK PHOS 124 BNP 3757 IS: LASIX IV ADMITTED TO STEP DOWN @ 1954 STEP DOWN STATUS DCP RETURN TO [facility]
[2019-08-24 16:00] VITALS: BP 139/61
--- NOTE | 2019-08-24 17:05 | Diagnostic Imaging Report ---
Indication: Abdominal pain Technique: Grayscale and duplex Doppler imaging of the abdomen performed. Comparison: None Findings: The liver is unremarkable. Doppler interrogation of the main portal vein shows patency with hepatopedal, monophasic flow. There is no biliary ductal dilatation identified. Gallbladder is notable for small polyp. Gallbladder wall is prominent but the gallbladder is not fully distended. There is a right pleural effusion. The spleen is prominent measuring about 13 cm. There demonstrated part of the pancreas and IVC show no definite abnormalities. Aorta is calcified. Both kidneys appear unremarkable. There is no hydronephrosis. IMPRESSION: Mild splenomegaly. Right pleural effusion Suspected gallbladder polyp.
--- NOTE | 2019-08-24 17:57 | NUR ---
NURSE NOTES:WOUND CARE NOTES:Pt presented on admission with a maroon discoloration sacrum without induration or fluctuance. 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 No evidence of incontinence associated skineroisiton noted Both heels are soft but are both easily blanchable. No other skin concerns noted. Tx.plan: Apply Remedy Antifungal Powder to perineal areas and buttocks with each incontinence care. Reposition at least every 2hours or as tolerated. Off-load heels with pillow.
--- NOTE | 2019-08-24 19:18 | NUR ---
HAND-OFF: Report given to DWIGHT CORONEL, no distress at this time.
--- NOTE | 2019-08-24 19:19 | NUR ---
NURSE NOTES: Received patient from HOMER Sotomayor. Patient is aaox4, vss, with no acute distress. Pt is cooperative, on manager cardiac, and well groomed. Pt is trach to vent AC 20, TV450, Fio2 20%, and PEEP of 5. Patient is on Glucerna 1.2 at 40cc/hr from 1900 to 0700. Skin issues noted, and IV on left forearm 20g . Family member at bed side. Bed at its lowest position, call light in reach and x3 bed rails are up. Will continue to monitor.
[2019-08-24 20:00] VITALS: BP 139/79
[2019-08-24] MEDS ORDERED: Epoetin Alfa-EPBX(ESRD on dialysis)10,000 unit/ml vial SUBQ SCH (21:00)
[2019-08-24] MEDS: Atorvastatin 80mg tab GT SCH (21:10)
[2019-08-24] MEDS: Losartan 25mg tab ORAL SCH (21:12)
[2019-08-24] MEDS: Levemir Flexpen SUBQ SCH (21:15)
[2019-08-25] VITALS (7 sets, daily range): BP systolic 110–148; BP diastolic 53–77
[2019-08-25] MEDS: Levothyroxine 25mcg tab GT SCH (06:29)
[2019-08-25] MEDS: NovoLOG Insulin Flexpen SUBQ SCH ×4 (06:30→21:00)
--- NOTE | 2019-08-25 07:12 | NUR ---
HAND-OFF: Report given to HOMER Sotomayor.
[2019-08-25 07:32] LABS: ALANINE AMINOTRANSFERASE 87 U/L (12-78); ALBUMIN 2.9 G/DL (3.4-5.0); ALBUMIN/GLOBULIN RATIO 0.6 (1.0-2.7); ALKALINE PHOSPHATASE 117 U/L (46-116); ANION GAP 8 mmol/L (5-15); ASPARTATE AMINO TRANSFERASE 74 U/L (15-37); BILIRUBIN,TOTAL 0.6 MG/DL (0.2-1.0); BLOOD UREA NITROGEN 17 mg/dL (7-18); CALCIUM 8.9 MG/DL (8.5-10.1); CARBON DIOXIDE 33 MMOL/L (21-32); CHLORIDE 100 MMOL/L (98-107); POTASSIUM 3.2 MMOL/L (3.5-5.1); SODIUM 141 MMOL/L (136-145)
--- NOTE | 2019-08-25 07:34 | NUR ---
RESPIRATORY NOTE: received pt on current vent settings. pt is trach with shiley [address] slight redness under trach where trach sits but no redness or skin wounds around trach tie. placed pt with his PMV. no signs of distress at this time. back up trach and ambu bag at bedside. alarms are audible and set appropriately. will cont to monitor.
--- NOTE | 2019-08-25 07:50 | NUR ---
NURSE NOTES: received pt in the bed, awake, alert, oriented, vital signs stable, no co pain, no SOB, skin warm and dry to touch, dressing dry and clean on sacral area, tube feeding at night, puree diet during the day, yellow clear urine, abdomen distended, at bedside, bed in low position, call light within reach.
--- NOTE | 2019-08-25 08:30 | Pulmonology Progress Note ---
Assessment/Plan Assessment/Plan IMPRESSION CHF pulmonary edema protein calorie malnutrition GINETTE anemia, chronic disease respiratory failure chronic trach gt orthostatic hypotension PLAN VENT as is diurese as able cardiology evaluation monitor cxr- repeat without improvement - will order CT supportive care follow up labs and recommend out of bed as able po with caution dc to snf once imaging improved check BNP impression, plan, and exam edited and reviewed in detail care discussed with RN Subjective Allergies: Coded Allergies: No Known Allergies (Unverified , 08/21/19) Subjective awake remains comfortable no distress on vent all noted Objective Last 24 Hour Vital Signs Date Time Temp Pulse Resp B/P (MAP) Pulse Ox O2 Delivery O2 Flow Rate FiO2 08/25/19 08:00 Mechanical Ventilator Mechanical Ventilator 08/25/19 08:00 40 08/25/19 07:32 57 20 40 08/25/19 05:17 58 22 40 08/25/19 04:00 Mechanical Ventilator Mechanical Ventilator 08/25/19 04:00 40 08/25/19 04:00 97.6 53 20 110/53 (72) 99 08/25/19 04:00 54 08/25/19 03:49 87 20 40 08/25/19 01:46 59 20 40 08/25/19 00:00 Mechanical Ventilator Mechanical Ventilator 08/25/19 00:00 40 08/25/19 00:00 86 08/25/19 00:00 97.9 86 25 148/77 (100) 100 08/24/19 23:45 89 20 40 08/24/19 21:49 57 20 40 08/24/19 21:12 139/79 08/24/19 21:12 89 139/79 08/24/19 20:00 40 08/24/19 20:00 Mechanical Ventilator Mechanical Ventilator 08/24/19 20:00 97.6 89 24 139/79 (99) 100 08/24/19 20:00 61 08/24/19 19:46 88 20 40 08/24/19 17:05 61 20 40 08/24/19 16:00 Mechanical Ventilator Mechanical Ventilator 08/24/19 16:00 40 08/24/19 16:00 57 08/24/19 16:00 97.9 58 20 139/61 (87) 100 08/24/19 14:50 61 17 40 08/24/19 12:42 61 20 40 2/3/20 12:00 Mechanical Ventilator Mechanical Ventilator 08/24/19 12:00 97.9 60 20 141/60 (87) 100 08/24/19 12:00 57 08/24/19 12:00 40 08/24/19 11:20 61 20 40 08/24/19 09:26 59 129/57 Intake and Output 08/24/19 08/25/19 19:00 07:00 Intake Total 320 ml 360 ml Balance 320 ml 360 ml Intake Oral 280 ml Tube Feeding 40 ml 360 ml # Voids 5 1 # Bowel Movements 2 2 Objective WDWN NAD trach and vent reduced breath sounds bilaterally without rhonchi or wheeze [id number] without MRG NABS nontender no HSM; Gt no CC some edema weak nonfocal Laboratory Tests 08/25/19 05:47: Sodium Level 141, Potassium Level 3.2L, Chloride Level 100, Carbon Dioxide Level 33H, Anion Gap 8, Blood Urea Nitrogen 17, Creatinine 1.0, Estimat Glomerular Filtration Rate , Glucose Level 110H, Calcium Level 8.9, Total Bilirubin 0.6, Aspartate Amino Transf (AST/SGOT) 74H, Alanine Aminotransferase ( ALT/SGPT) 87H, Alkaline Phosphatase 117H, Total Protein 8.1, Albumin 2.9L, Globulin 5.2, Albumin/Globulin Ratio 0.6L Current Medications Medications (Trade) Dose Ordered Sig/Deepak Route PRN Reason Start Time Stop Time Status Last Admin Dose Admin Acetaminophen (Tylenol) 650 mg Q4H PRN GT Mild Pain/Temp > 100.5 08/21/19 20:45 09/20/19 20:44 Al Hydroxide/Mg Hydroxide (Mylanta) 30 ml Q6H PRN GT Indigestion 08/21/19 20:45 09/20/19 20:44 Amiodarone HCl (Cordarone) 200 mg DAILY GT 08/22/19 09:00 09/21/19 08:59 08/24/19 09:25 Amoxicillin/ Clavulanate Potassium (Augmentin) 500 mg Q12HR GT 08/24/19 21:00 08/29/19 08:59 08/24/19 21:11 Ascorbic Acid (Vitamin C) 500 mg DAILY GT 08/22/19 09:00 09/21/19 08:59 08/24/19 09:25 Aspirin (Ecotrin) 81 mg DAILY ORAL 08/23/19 09:00 09/22/19 08:59 08/24/19 09:25 Atorvastatin Calcium (Lipitor) 80 mg BEDTIME GT 08/21/19 21:00 09/20/19 20:59 08/24/19 21:10 Bethanechol Chloride (Urecholine) 10 mg TWICE A DAY GT 08/22/19 09:00 09/21/19 08:59 08/24/19 17:45 Carvedilol (Coreg) 3.125 mg EVERY 12 HOURS GT 08/21/19 21:00 09/20/19 20:59 08/24/19 21:12 Dextrose (Dextrose 50%) 25 ml Q30M PRN IV Hypoglycemia 08/21/19 21:00 09/20/19 20:59 Dextrose (Dextrose 50%) 50 ml Q30M PRN IV Hypoglycemia 08/21/19 21:00 09/20/19 20:59 Epoetin Tobin (Epoetin Tobin(ESRD on dialysis)) 10,000 unit SAT-SAT-SAT SUBQ 08/24/19 21:00 09/20/19 20:59 Ferrous Sulfate (Feosol) 330 mg THREE TIMES A DAY GT 08/22/19 09:00 09/21/19 08:59 08/24/19 17:46 Finasteride (Proscar) 5 mg BIOTEC ORAL 08/21/19 21:00 09/20/19 20:59 08/24/19 21:12 Fludrocortisone Acetate (Florinef) 0.05 mg DAILY GT 08/22/19 09:00 09/21/19 08:59 08/24/19 09:27 Furosemide (Lasix) 40 mg EVERY 12 HOURS IV 08/21/19 21:00 09/20/19 20:59 08/24/19 21:10 Heparin Sodium (Porcine) (Heparin 5000 units/ml) 5,000 units EVERY 12 HOURS SUBQ 08/21/19 21:00 09/20/19 20:59 08/24/19 21:14 Insulin Aspart (NovoLOG) BEFORE MEALS AND HS SUBQ 08/21/19 21:00 09/20/19 20:59 Insulin Detemir (Levemir) 6 units BEDTIME SUBQ 08/21/19 21:00 09/20/19 20:59 08/24/19 21:15 Levothyroxine Sodium (Synthroid) 25 mcg DAILY@0630 GT 08/22/19 06:30 09/21/19 06:29 08/25/19 06:29 Losartan Potassium (Cozaar) 12.5 mg BEDTIME ORAL 08/21/19 21:00 09/20/19 20:59 08/24/19 21:12 Multivitamins (Multivitamins W/ Minerals 15ml Liquid) 15 ml DAILY GT 08/22/19 09:00 09/21/19 08:59 08/24/19 09:24 Oxycodone/ Acetaminophen (Percocet 5-325) 1 tab Q4H PRN ORAL Severe Breakthru Pain (>7) 08/21/19 21:00 08/28/19 20:59 Pantoprazole (Protonix) 40 mg DAILY@0630 ORAL 08/22/19 06:30 09/21/19 06:29 08/25/19 06:29 Simethicone (Mylicon) 80 mg QID PRN GT abd discomfort 08/21/19 21:00 09/20/19 20:59 Thiamine HCl (Vitamin B1) 100 mg DAILY GT 08/22/19 09:00 09/21/19 08:59 08/24/19 09:26 Syed Enamorado MD Aug 25, 2019 08:30
[2019-08-25] MEDS: Multivitamins W/Minerals 15 ML UDC GT SCH (09:28)
[2019-08-25] MEDS: Ferrous Sulfate 300 MG/5 ML UDC GT SCH ×3 (09:29→17:57)
[2019-08-25] MEDS: Bethanechol 25mg Tab GT SCH ×2 (09:29→17:57)
[2019-08-25] MEDS: Ascorbic Acid 500mg tab GT SCH (09:29)
[2019-08-25] MEDS: Aspirin EC 81mg tab ORAL SCH (09:31)
[2019-08-25] MEDS: Amiodarone 200mg tab GT SCH (09:31)
[2019-08-25] MEDS: Thiamine 100mg tab GT SCH (09:31)
[2019-08-25] MEDS: Heparin 5000 units/ml inj SUBQ SCH ×2 (09:49→21:08)
--- NOTE | 2019-08-25 09:49 | Cardiac Electrophysiology PN ---
Assessment/Plan Assessment/Plan 1. Shortness of breath, could be due to CHF exacerbation with BNP of almost 6000. Continue Lasix 40 mg IV b.i.d., Coreg 3.125 mg b.i.d., and losartan 12.5 mg daily. Echo Ef 35% 2. Paroxysmal atrial fibrillation, currently in sinus rhythm, on amiodarone 200 mg daily and Aspirin 3. CAD and history of prior stent in 2017, does not have any chest pain, on Coreg, Lipitor and aspirin 4. Ventilator-dependent respiratory failure and COPD.S/P Tracheostomy. Further evaluation by Dr. Enamorado. 5. Dysphagia, status post G-tube, but also the patient eats food. DW and RN at bedside Subjective Subjective No events. at bedside. Alert in NAD on Abx. On Vent via Tracheostomy Objective Last 24 Hour Vital Signs Date Time Temp Pulse Resp B/P (MAP) Pulse Ox O2 Delivery O2 Flow Rate FiO2 08/25/19 08:43 61 30 40 08/25/19 08:00 Mechanical Ventilator Mechanical Ventilator 08/25/19 08:00 98.0 59 18 116/57 (76) 100 08/25/19 08:00 60 08/25/19 08:00 40 08/25/19 07:32 57 20 40 08/25/19 05:17 58 22 40 08/25/19 04:00 Mechanical Ventilator Mechanical Ventilator 08/25/19 04:00 40 08/25/19 04:00 97.6 53 20 110/53 (72) 99 08/25/19 04:00 54 08/25/19 03:49 87 20 40 08/25/19 01:46 59 20 40 08/25/19 00:00 Mechanical Ventilator Mechanical Ventilator 08/25/19 00:00 40 08/25/19 00:00 86 08/25/19 00:00 97.9 86 25 148/77 (100) 100 08/24/19 23:45 89 20 40 08/24/19 21:49 57 20 40 08/24/19 21:12 139/79 08/24/19 21:12 89 139/79 08/24/19 20:00 40 08/24/19 20:00 Mechanical Ventilator Mechanical Ventilator 08/24/19 20:00 97.6 89 24 139/79 (99) 100 08/24/19 20:00 61 08/24/19 19:46 88 20 40 08/24/19 17:05 61 20 40 08/24/19 16:00 Mechanical Ventilator Mechanical Ventilator 08/24/19 16:00 40 08/24/19 16:00 57 08/24/19 16:00 97.9 58 20 139/61 (87) 100 08/24/19 14:50 61 17 40 08/24/19 12:42 61 20 40 08/24/19 12:00 Mechanical Ventilator Mechanical Ventilator 08/24/19 12:00 97.9 60 20 141/60 (87) 100 08/24/19 12:00 57 08/24/19 12:00 40 08/24/19 11:20 61 20 40 Intake and Output 08/24/19 08/25/19 19:00 07:00 Intake Total 320 ml 360 ml Balance 320 ml 360 ml Intake Oral 280 ml Tube Feeding 40 ml 360 ml # Voids 5 1 # Bowel Movements 2 2 Laboratory Tests Test 08/25/19 05:47 Sodium Level 141 MMOL/L (136-145) Potassium Level 3.2 MMOL/L (3.5-5.1) L Chloride Level 100 MMOL/L (98-107) Carbon Dioxide Level 33 MMOL/L (21-32) H Anion Gap 8 mmol/L (5-15) Blood Urea Nitrogen 17 mg/dL (7-18) Creatinine 1.0 MG/DL (0.55-1.30) Estimat Glomerular Filtration Rate mL/min (>60) Glucose Level 110 MG/DL (74-106) H Calcium Level 8.9 MG/DL (8.5-10.1) Total Bilirubin 0.6 MG/DL (0.2-1.0) Aspartate Amino Transf (AST/SGOT) 74 U/L (15-37) H Alanine Aminotransferase (ALT/SGPT) 87 U/L (12-78) H Alkaline Phosphatase 117 U/L (46-116) H Total Protein 8.1 G/DL (6.4-8.2) Albumin 2.9 G/DL (3.4-5.0) L Globulin 5.2 g/dL Albumin/Globulin Ratio 0.6 (1.0-2.7) L Objective HEAD AND NECK: Mild JVD. Status post tracheostomy. LUNGS: Basilar rales. Coarse rhonchi. CARDIOVASCULAR: Regular S1 and S2 with no gallop. ABDOMEN: Soft. Status post G-tube. EXTREMITIES: No pitting edema. Vipul Hazel MD Aug 25, 2019 09:49
--- NOTE | 2019-08-25 09:50 | NUR ---
RADIOLOGY DEPT., CHEST X-RAY DONE.-P.DYE
--- NOTE | 2019-08-25 11:18 | NUR ---
RD ASSESSMENT & RECOMMENDATIONS SEE CARE ACTIVITY FOR COMPLETE ASSESSMENT DAILY ESTIMATED NEEDS: Needs based on Wound, critical care 71.7kg 22-30 kcals/kg 8638-7489 total kcals 1.25-2 g protein/kg 90-143 g total protein 25-30 mL/kg 4370-5040 total fluid mLs NUTRITION DIAGNOSIS: Swallowing difficulty r/t resp status as evidenced by pt w/ trach and PEG, on oral diet w/ PMV and texture modifications. (CURRENT DIET-> Regular puree w/ NTL CURRENT TF-> +HS feeds, 12 hrs (7pm-7am) Glucerna 1.2 @40) PO DIET RECOMMENDATIONS: Regular puree w/ NTL ENTERAL NUTRITION RECOMMENDATIONS: Rec to INCREASE to rate of 75ml/hr x12 hrs to provide 900ml, 1080 kcal, 54g pro, 725ml free h2O - Rec to INCREASE NIGHT FEEDS to better meet est needs until pt is observed to have >75% intake on daily meals. -> Pt eating 75% of meals, maintain current orders for 40ml/hr x12 hrs. - Flush per MD, HOB Over 30 degrees ADDITIONAL RECOMMENDATIONS: 1) CASING FLUID TENDER eval for texture 2) maintain accurate bed scale wts-> pt on lasix 3) Wound care: Add EVERARDO BID via GT for skin integrity 4) On lasix, monitor lytes daily 5) Monitor po intake, appears to be 75% most meals
--- NOTE | 2019-08-25 11:21 | NUR ---
NURSE NOTES: K 3.2, 40meq of KCL given as ordered, CT chest done as ordered, tolerate well, continue monitoring.
--- NOTE | 2019-08-25 12:33 | Diagnostic Imaging Report ---
Indication: Dyspnea Comparison: 08/22/2019 A single view chest radiograph was obtained. Findings: Pulmonary vascular congestion is mild to moderate but improved significantly since the last occasion. Heart remains enlarged. There is silhouetting of the left hemidiaphragm which could be due to a pleural effusion and/or parenchymal disease. Tracheostomy again noted. IMPRESSION: Mild to moderate CHF though significantly improved from the prior study
--- NOTE | 2019-08-25 13:22 | Surgery Progress Note ---
Surgery Progress Note Subjective Additional Comments Patient seen and examined bedside. present. Patient is a lot more alert awake and responsive today. Comfortable appearing and responding appropriately. On vent support. No nausea vomiting fever chills. Labs noted. Exam stable. Objective Last 24 Hour Vital Signs Date Time Temp Pulse Resp B/P (MAP) Pulse Ox O2 Delivery O2 Flow Rate FiO2 08/25/19 12:35 62 23 40 08/25/19 12:00 40 08/25/19 12:00 97.9 61 20 123/60 (81) 100 08/25/19 12:00 57 08/25/19 12:00 Mechanical Ventilator Mechanical Ventilator 08/25/19 10:22 58 20 40 08/25/19 09:30 61 116/57 08/25/19 08:43 61 30 40 08/25/19 08:00 Mechanical Ventilator Mechanical Ventilator 08/25/19 08:00 98.0 59 18 116/57 (76) 100 08/25/19 08:00 60 08/25/19 08:00 40 08/25/19 07:32 57 20 40 08/25/19 05:17 58 22 40 08/25/19 04:00 Mechanical Ventilator Mechanical Ventilator 08/25/19 04:00 40 08/25/19 04:00 97.6 53 20 110/53 (72) 99 08/25/19 04:00 54 08/25/19 03:49 87 20 40 08/25/19 01:46 59 20 40 08/25/19 00:00 Mechanical Ventilator Mechanical Ventilator 08/25/19 00:00 40 08/25/19 00:00 86 08/25/19 00:00 97.9 86 25 148/77 (100) 100 08/24/19 23:45 89 20 40 08/24/19 21:49 57 20 40 08/24/19 21:12 139/79 08/24/19 21:12 89 139/79 08/24/19 20:00 40 08/24/19 20:00 Mechanical Ventilator Mechanical Ventilator 08/24/19 20:00 97.6 89 24 139/79 (99) 100 08/24/19 20:00 61 08/24/19 19:46 88 20 40 08/24/19 17:05 61 20 40 08/24/19 16:00 Mechanical Ventilator Mechanical Ventilator 08/24/19 16:00 40 08/24/19 16:00 57 08/24/19 16:00 97.9 58 20 139/61 (87) 100 08/24/19 14:50 61 17 40 I&O Intake and Output 08/24/19 08/25/19 19:00 07:00 Intake Total 320 ml 360 ml Balance 320 ml 360 ml Intake Oral 280 ml Tube Feeding 40 ml 360 ml # Voids 5 1 # Bowel Movements 2 2 Dressing: dry Wound: clean Cardiovascular: RSR Respiratory: clear Abdomen: soft, non-tender, present bowel sounds Extremities: no edema, no tenderness, no cyanosis Laboratory Tests Test 08/25/19 05:47 Sodium Level 141 MMOL/L (136-145) Potassium Level 3.2 MMOL/L (3.5-5.1) L Chloride Level 100 MMOL/L (98-107) Carbon Dioxide Level 33 MMOL/L (21-32) H Anion Gap 8 mmol/L (5-15) Blood Urea Nitrogen 17 mg/dL (7-18) Creatinine 1.0 MG/DL (0.55-1.30) Estimat Glomerular Filtration Rate mL/min (>60) Glucose Level 110 MG/DL (74-106) H Calcium Level 8.9 MG/DL (8.5-10.1) Total Bilirubin 0.6 MG/DL (0.2-1.0) Aspartate Amino Transf (AST/SGOT) 74 U/L (15-37) H Alanine Aminotransferase (ALT/SGPT) 87 U/L (12-78) H Alkaline Phosphatase 117 U/L (46-116) H Total Protein 8.1 G/DL (6.4-8.2) Albumin 2.9 G/DL (3.4-5.0) L Globulin 5.2 g/dL Albumin/Globulin Ratio 0.6 (1.0-2.7) L Plan Problems: (1) Abnormal LFTs Assessment & Plan: 73M with abnormal lft's, abd distention, firm, non tender, KUB as below. diarrhea with tube feeds some oral intake no n/v/f/c okay for diet US The liver is unremarkable. Doppler interrogation of the main portal vein shows patency with hepatopedal, monophasic flow. There is no biliary ductal dilatation identified. Gallbladder is notable for small polyp. Gallbladder wall is prominent but the gallbladder is not fully distended. There is a right pleural effusion. The spleen is prominent measuring about 13 cm. There demonstrated part of the pancreas and IVC show no definite abnormalities. Aorta is calcified. Both kidneys appear unremarkable. There is no hydronephrosis. IMPRESSION: Mild splenomegaly. Right pleural effusion Suspected gallbladder polyp. trend labs abx as per ID will follow with recs thank you Gastrostomy or enterostomy tube in the leftward mid abdomen. No clear bowel obstruction or free air. Pt presented on admission with a maroon discoloration sacrum without induration or fluctuance. 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 No evidence of incontinence associated skin erosion noted Both heels are soft but are both easily blanchable. No other skin concerns noted. Tx.plan: Apply Remedy Antifungal Powder to perineal areas and buttocks with each incontinence care. Reposition at least every 2hours or as tolerated. Off-load heels with pillow. Avel Oneill Aug 25, 2019 13:22
--- NOTE | 2019-08-25 14:42 | General Progress Note ---
Assessment/Plan Problem List: (1) Ventilator dependent ICD Codes: Z99.11 - Dependence on respirator [ventilator] status SNOMED: 756323317 (2) CHF exacerbation ICD Codes: I50.9 - Heart failure, unspecified SNOMED: 789460662, 41000036507067 (3) Abnormal LFTs ICD Codes: R94.5 - Abnormal results of liver function studies SNOMED: 182906291 (4) Abnormal laboratory test result ICD Codes: R89.9 - Unspecified abnormal finding in specimens from other organs , systems and tissues SNOMED: 055424879 Status: stable Assessment/Plan: stable iv lasix ct chest replace lytes o2 resp rx suctioning abx monitor cxr monitor labs amiodarone rx Subjective ROS Limited/Unobtainable: No Constitutional: Reports: malaise, weakness HEENT: Reports: no symptoms Cardiovascular: Reports: no symptoms Respiratory: Reports: SOB with excertion Gastrointestinal/Abdominal: Reports: abdominal pain Genitourinary: Reports: no symptoms Neurologic/Psychiatric: Reports: no symptoms Endocrine: Reports: no symptoms Hematologic/Lymphatic: Reports: anemia Allergies: Coded Allergies: No Known Allergies (Unverified , 08/21/19) All Systems: reviewed and negative except above Subjective no events. states he feels a little better. still with sob when eating. labs noted cxr with decreased chf. ct ordered by pulm Objective Last 24 Hour Vital Signs Date Time Temp Pulse Resp B/P (MAP) Pulse Ox O2 Delivery O2 Flow Rate FiO2 08/25/19 12:35 62 23 40 08/25/19 12:00 40 08/25/19 12:00 97.9 61 20 123/60 (81) 100 08/25/19 12:00 57 08/25/19 12:00 Mechanical Ventilator Mechanical Ventilator 08/25/19 10:22 58 20 40 08/25/19 09:30 61 116/57 08/25/19 08:43 61 30 40 08/25/19 08:00 Mechanical Ventilator Mechanical Ventilator 08/25/19 08:00 98.0 59 18 116/57 (76) 100 08/25/19 08:00 60 08/25/19 08:00 40 08/25/19 07:32 57 20 40 08/25/19 05:17 58 22 40 08/25/19 04:00 Mechanical Ventilator Mechanical Ventilator 08/25/19 04:00 40 08/25/19 04:00 97.6 53 20 110/53 (72) 99 08/25/19 04:00 54 08/25/19 03:49 87 20 40 08/25/19 01:46 59 20 40 08/25/19 00:00 Mechanical Ventilator Mechanical Ventilator 08/25/19 00:00 40 08/25/19 00:00 86 08/25/19 00:00 97.9 86 25 148/77 (100) 100 08/24/19 23:45 89 20 40 08/24/19 21:49 57 20 40 08/24/19 21:12 139/79 08/24/19 21:12 89 139/79 08/24/19 20:00 40 08/24/19 20:00 Mechanical Ventilator Mechanical Ventilator 08/24/19 20:00 97.6 89 24 139/79 (99) 100 08/24/19 20:00 61 08/24/19 19:46 88 20 40 08/24/19 17:05 61 20 40 08/24/19 16:00 Mechanical Ventilator Mechanical Ventilator 08/24/19 16:00 40 08/24/19 16:00 57 08/24/19 16:00 97.9 58 20 139/61 (87) 100 08/24/19 14:50 61 17 40 Intake and Output 08/24/19 08/25/19 19:00 07:00 Intake Total 320 ml 360 ml Balance 320 ml 360 ml Intake Oral 280 ml Tube Feeding 40 ml 360 ml # Voids 5 1 # Bowel Movements 2 2 Laboratory Tests 08/25/19 05:47: Sodium Level 141, Potassium Level 3.2L, Chloride Level 100, Carbon Dioxide Level 33H, Anion Gap 8, Blood Urea Nitrogen 17, Creatinine 1.0, Estimat Glomerular Filtration Rate , Glucose Level 110H, Calcium Level 8.9, Total Bilirubin 0.6, Aspartate Amino Transf (AST/SGOT) 74H, Alanine Aminotransferase ( ALT/SGPT) 87H, Alkaline Phosphatase 117H, Total Protein 8.1, Albumin 2.9L, Globulin 5.2, Albumin/Globulin Ratio 0.6L Height (Feet): 5 Height (Inches): 7.00 Weight (Pounds): 160 Objective General Appearance: WD/WN, alert Neck: supple Cardiovascular: regular rhythm Respiratory/Chest: lungs clear Abdomen: normal bowel sounds, non tender, soft, no organomegaly Edema: no edema noted Arm (L), no edema noted Arm (R), no edema noted Leg (L), no edema noted Leg (R), no edema noted Pedal (L), no edema noted Pedal (R), no edema noted Generalized Reed Pérez MD Aug 25, 2019 14:42
--- NOTE | 2019-08-25 15:19 | Diagnostic Imaging Report ---
Indication: Chest pain Technique: Continuous helical transaxial imaging of the chest was obtained from the thoracic inlet to the upper abdomen. No intravenous contrast was administered. Coronal 2-D reformats were also obtained. Total Dose length Product (DLP): 839.[address] Dose Index Volume (CTDIvol): 17 mGy Comparison: none Findings: Tracheostomy is noted. The aorta is moderately calcified. There are small nodes within the mediastinum. There are small bilateral pleural effusions present with associated compressive atelectasis at the posterior margin of both lower lobes. The heart is prominent in size. Coronary calcifications are moderate. There is trace pericardial fluid. There is a gastrostomy tube present. The bones are osteopenic. IMPRESSION: Mild to moderate bilateral pleural effusions with associated compressive atelectasis. Atherosclerotic vascular disease. Tracheostomy Osteopenia Gastrostomy The CT scanner at [facility] is accredited by the [employer] and the scans are performed using dose optimization techniques as appropriate to a performed exam including Automatic Exposure control.
--- NOTE | 2019-08-25 19:14 | NUR ---
HAND-OFF: Report given to DWIGHT CORONEL, no distress at this time.
--- NOTE | 2019-08-25 19:15 | NUR ---
NURSE NOTES: Received patient from HOMER Sotomayor. Patient is aaox4, vss, no acute distress, and family member at bedside. Patient is cooperative and well groomed. Patient is on radiation monitor, trach to vent AC 20 TV 450, Fio2 205 and PEEP of 5. Known skin issues noted, IV on left forearm 20g and patient has limited mobility in bed. Bed at its lowest position, call light in reach and x3 bed rails are up. Will continue to monitor.
--- NOTE | 2019-08-25 19:20 | NUR ---
NURSE NOTES: Oral care continued and G-tube feeding stared. Family member at bedside involved in care. Patient tolerated tx well.
[2019-08-25] MEDS: Losartan 25mg tab ORAL SCH (21:05)
[2019-08-25] MEDS: Atorvastatin 80mg tab GT SCH (21:05)
[2019-08-25] MEDS: Levemir Flexpen SUBQ SCH (21:06)
--- NOTE | 2019-08-25 21:30 | NUR ---
NURSE NOTES: Condom catheter dislodged and was replaced. Patient cleaned and partial linen changed. Family member at bedside. Addendum: 08/25/19 at 2243 by Farhan Herring RN NURSE NOTES: Condom catheter dislodged and was replaced. Patient cleaned and partial linen changed. Family member at bedside. Patient refused pillow under legs to float heels.
--- NOTE | 2019-08-26 02:48 | NUR ---
NURSE NOTES: left voice mail to Dr. Hazel regarding lasix 40mg IV is it okay to give with bp 97/50. will wait for call back. Addendum: 08/26/19 at 2054 by TITO LOMBARDO RN wrong time
[2019-08-26 04:00] VITALS: BP 125/60
[2019-08-26] MEDS: Levothyroxine 25mcg tab GT SCH (05:59)
[2019-08-26] MEDS: NovoLOG Insulin Flexpen SUBQ SCH ×4 (06:28→20:25)
--- NOTE | 2019-08-26 07:28 | NUR ---
HAND-OFF: Report given to Светлана Miramontes RN.
--- NOTE | 2019-08-26 07:35 | General Progress Note ---
Assessment/Plan Problem List: (1) Ventilator dependent ICD Codes: Z99.11 - Dependence on respirator [ventilator] status SNOMED: 656493967 (2) CHF exacerbation ICD Codes: I50.9 - Heart failure, unspecified SNOMED: 213146612, 79750654028883 (3) Abnormal LFTs ICD Codes: R94.5 - Abnormal results of liver function studies SNOMED: 475456159 (4) Abnormal laboratory test result ICD Codes: R89.9 - Unspecified abnormal finding in specimens from other organs , systems and tissues SNOMED: 595451481 Status: stable Assessment/Plan: stable iv lasix ct chest noted- bilateral effusions replace lytes as needed check cbc and stool ob o2 resp rx suctioning abx amiodarone rx Subjective ROS Limited/Unobtainable: No Constitutional: Reports: malaise, weakness HEENT: Reports: no symptoms Cardiovascular: Reports: no symptoms Respiratory: Reports: cough, shortness of breath Gastrointestinal/Abdominal: Reports: black stools Genitourinary: Reports: no symptoms Neurologic/Psychiatric: Reports: no symptoms, pre-existing deficit Endocrine: Reports: no symptoms Hematologic/Lymphatic: Reports: anemia Allergies: Coded Allergies: No Known Allergies (Unverified , 08/21/19) All Systems: reviewed and negative except above Subjective no new complaints. still with sob when eating. per RN pt having "black stools." Objective Last 24 Hour Vital Signs Date Time Temp Pulse Resp B/P (MAP) Pulse Ox O2 Delivery O2 Flow Rate FiO2 08/26/19 05:28 56 24 40 08/26/19 04:00 98.1 60 20 125/60 (81) 99 08/26/19 04:00 Mechanical Ventilator Mechanical Ventilator 08/26/19 04:00 40 08/26/19 04:00 56 08/26/19 03:33 56 20 40 08/26/19 00:56 57 20 40 08/26/19 00:00 53 08/26/19 00:00 40 08/26/19 00:00 Mechanical Ventilator Mechanical Ventilator 08/25/19 23:45 98.0 56 20 120/60 (80) 100 08/25/19 22:59 55 20 40 08/25/19 21:05 120/60 08/25/19 21:05 56 120/60 08/25/19 20:59 56 20 40 08/25/19 20:00 Mechanical Ventilator Mechanical Ventilator 08/25/19 20:00 40 08/25/19 20:00 60 08/25/19 20:00 98.7 56 20 120/60 (80) 100 08/25/19 19:24 57 20 40 08/25/19 17:03 60 21 40 08/25/19 16:00 Mechanical Ventilator Mechanical Ventilator 08/25/19 16:00 55 08/25/19 16:00 98.0 56 20 133/60 (84) 100 08/25/19 16:00 40 08/25/19 14:44 55 20 40 08/25/19 12:35 62 23 40 08/25/19 12:00 40 08/25/19 12:00 97.9 61 20 123/60 (81) 100 08/25/19 12:00 57 08/25/19 12:00 Mechanical Ventilator Mechanical Ventilator 08/25/19 10:22 58 20 40 08/25/19 09:30 61 116/57 08/25/19 08:43 61 30 40 08/25/19 08:00 Mechanical Ventilator Mechanical Ventilator 08/25/19 08:00 98.0 59 18 116/57 (76) 100 08/25/19 08:00 60 08/25/19 08:00 40 Intake and Output 08/25/19 08/26/19 19:00 07:00 Intake Total 290 ml 410 ml Output Total 500 ml Balance 290 ml -90 ml Intake Oral 250 ml Free Water 50 ml Tube Feeding 40 ml 360 ml Output Urine Total 500 ml # Voids 4 1 Height (Feet): 5 Height (Inches): 7.00 Weight (Pounds): 160 Objective General Appearance: WD/WN, alert Neck: supple Cardiovascular: regular rhythm Respiratory/Chest: lungs clear Abdomen: normal bowel sounds, non tender, soft, no organomegaly Edema: no edema noted Arm (L), no edema noted Arm (R), no edema noted Leg (L), no edema noted Leg (R), no edema noted Pedal (L), no edema noted Pedal (R), no edema noted Generalized Reed Pérez MD Aug 26, 2019 07:35
--- NOTE | 2019-08-26 07:38 | CDS Physician Query ---
Clarification is required for compliance, coding accuracy, and to reflect severity of illness for this patient Dear Vipul Andrade MD Date: 08/26/2019 Frame Wirer/CDS Name: Duke Capellan Assessment/Plan Assessment/Plan 1. Shortness of breath, could be due to CHF exacerbation with BNP of almost 6000. Continue Lasix 40 mg IV b.i.d., Coreg 3.125 mg b.i.d., and losartan 12.5 mg daily. Echo Ef 35% 2. Paroxysmal atrial fibrillation, currently in sinus rhythm, on amiodarone 200 mg daily and Aspirin 3. CAD and history of prior stent in 2017, does not have any chest pain, on Coreg, Lipitor and aspirin 4. Ventilator-dependent respiratory failure and COPD.S/P Tracheostomy. Further evaluation by Dr. Enamorado. 5. Dysphagia, status post G-tube, but also the patient eats food. "Heart Failure / CHF" documented in Consultation notes BNP: 6000 Tx: IV FUROSEMIDE Please Clarify: Acuity [] Acute [] Chronic [] Acute on Chronic Type [] Systolic [] Diastolic [] Systolic & Diastolic (Combined) [] Other: Present on Admission: [] Yes [] No [] Clinically Undetermined Physician signature Date Please also document in your Progress Notes and/or Discharge Summary and indicate if the condition was present on admission. MTDD
[2019-08-26 08:00] VITALS: BP 124/74
--- NOTE | 2019-08-26 08:00 | NUR ---
NURSE NOTES: received pt in the bed, awake, alert, oriented, vital signs stable, no co pain, no SOB, skin warm and dry to touch, dressing dry and intact on sacral area, tube feeding at night, puree diet during the day, tolerate diet well, incontinent, yellow clear urine, at bedside, bed in low position, call light within reach.
[2019-08-26] MEDS: Amiodarone 200mg tab GT SCH (08:55)
[2019-08-26] MEDS: Multivitamins W/Minerals 15 ML UDC GT SCH (08:55)
[2019-08-26] MEDS: Ferrous Sulfate 300 MG/5 ML UDC GT SCH ×3 (08:55→17:56)
[2019-08-26] MEDS: Aspirin EC 81mg tab ORAL SCH (08:55)
[2019-08-26] MEDS: Bethanechol 25mg Tab GT SCH ×2 (08:56→17:56)
[2019-08-26] MEDS: Thiamine 100mg tab GT SCH (08:56)
[2019-08-26] MEDS: Ascorbic Acid 500mg tab GT SCH (08:56)
[2019-08-26] MEDS: Heparin 5000 units/ml inj SUBQ SCH ×2 (08:58→20:33)
[2019-08-26 09:18] LABS: BASOPHILS % (AUTO) 1.2 % (0.0-2.0); EOSINOPHILS % (AUTO) 4.8 % (0.0-3.0); HEMATOCRIT 38.4 % (42.0-52.0); LYMPHOCYTES % (AUTO) 9.4 % (20.0-45.0); MEAN CORPUSCULAR VOLUME 84 FL (80-99); MONOCYTES % (AUTO) 5.7 % (1.0-10.0); NEUTROPHILS % (AUTO) 78.9 % (45.0-75.0); PLATELET COUNT 240 K/UL (150-450); RED BLOOD COUNT 4.57 M/UL (4.70-6.10); RED CELL DISTRIBUTION WIDTH 17.7 % (11.6-14.8); WHITE BLOOD COUNT 7.5 K/UL (4.8-10.8)
[2019-08-26 09:27] LABS: ANION GAP 7 mmol/L (5-15); BLOOD UREA NITROGEN 18 mg/dL (7-18); CALCIUM 9.5 MG/DL (8.5-10.1); CARBON DIOXIDE 33 MMOL/L (21-32); CHLORIDE 100 MMOL/L (98-107); POTASSIUM 3.8 MMOL/L (3.5-5.1); SODIUM 140 MMOL/L (136-145)
[2019-08-26] MEDS ORDERED: NS 275ml ONE (10:14)
[2019-08-26 12:00] VITALS: BP 96/52
--- NOTE | 2019-08-26 13:34 | NUR ---
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 98.1 HR 59 RR 23 B/P 96/52 CO2 33 IS: LASIX IV HEPARIN SUBC STEP DOWN STATUS
--- NOTE | 2019-08-26 14:57 | NUR ---
NURSE NOTES: vital signs stable, no co pain, bed bath given, repositioned, continue monitoring.
--- NOTE | 2019-08-26 15:03 | Cardiac Electrophysiology PN ---
Assessment/Plan Assessment/Plan 1. Shortness of breath, could be due to CHF exacerbation EF 35% with BNP of almost 6000. Continue Lasix 40 mg IV b.i.d., Coreg 3.125 mg bid and losartan 12.5 mg daily. Add Aldactone 25 daily 2. Paroxysmal atrial fibrillation, currently in sinus rhythm, on amiodarone 200 mg daily and Aspirin 3. CAD and history of prior stent in 2017, no chest pain on Coreg, Lipitor and aspirin 4. Ventilator-dependent respiratory failure and COPD.S/P Tracheostomy. Further evaluation by Dr. Enamorado. 5. Dysphagia, status post G-tube, but also the patient eats food. DW and RN at bedside Subjective Subjective No events. at bedside. Alert in NAD on Abx. On Vent via Tracheostomy with 35% Fio2 Objective Last 24 Hour Vital Signs Date Time Temp Pulse Resp B/P (MAP) Pulse Ox O2 Delivery O2 Flow Rate FiO2 08/26/19 12:00 98.1 59 23 96/52 (67) 98 08/26/19 12:00 Mechanical Ventilator Mechanical Ventilator 08/26/19 12:00 40 08/26/19 11:35 59 08/26/19 11:20 59 20 40 08/26/19 09:03 61 20 40 08/26/19 08:55 70 124/74 08/26/19 08:00 67 08/26/19 08:00 40 08/26/19 08:00 Mechanical Ventilator Mechanical Ventilator 08/26/19 08:00 97.9 70 26 124/74 (91) 100 08/26/19 07:15 62 20 40 08/26/19 05:28 56 24 40 08/26/19 04:00 98.1 60 20 125/60 (81) 99 08/26/19 04:00 Mechanical Ventilator Mechanical Ventilator 08/26/19 04:00 40 08/26/19 04:00 56 08/26/19 03:33 56 20 40 08/26/19 00:56 57 20 40 08/26/19 00:00 53 08/26/19 00:00 40 08/26/19 00:00 Mechanical Ventilator Mechanical Ventilator 08/25/19 23:45 98.0 56 20 120/60 (80) 100 08/25/19 22:59 55 20 40 08/25/19 21:05 120/60 08/25/19 21:05 56 120/60 08/25/19 20:59 56 20 40 08/25/19 20:00 Mechanical Ventilator Mechanical Ventilator 08/25/19 20:00 40 08/25/19 20:00 60 08/25/19 20:00 98.7 56 20 120/60 (80) 100 08/25/19 19:24 57 20 40 08/25/19 17:03 60 21 40 08/25/19 16:00 Mechanical Ventilator Mechanical Ventilator 08/25/19 16:00 55 08/25/19 16:00 98.0 56 20 133/60 (84) 100 08/25/19 16:00 40 Intake and Output 08/25/19 08/26/19 19:00 07:00 Intake Total 290 ml 450 ml Output Total 500 ml Balance 290 ml -50 ml Intake Oral 250 ml Free Water 50 ml Tube Feeding 40 ml 400 ml Output Urine Total 500 ml # Voids 4 1 Laboratory Tests Test 08/26/19 08:05 08/26/19 09:30 White Blood Count 7.5 K/UL (4.8-10.8) Red Blood Count 4.57 M/UL (4.70-6.10) L Hemoglobin 12.0 G/DL (14.2-18.0) L Hematocrit 38.4 % (42.0-52.0) L Mean Corpuscular Volume 84 FL (80-99) Mean Corpuscular Hemoglobin 26.2 PG (27.0-31.0) L Mean Corpuscular Hemoglobin Concent 31.1 G/DL (32.0-36.0) L Red Cell Distribution Width 17.7 % (11.6-14.8) H Platelet Count 240 K/UL (150-450) Mean Platelet Volume 6.4 FL (6.5-10.1) L Neutrophils (%) (Auto) 78.9 % (45.0-75.0) H Lymphocytes (%) (Auto) 9.4 % (20.0-45.0) L Monocytes (%) (Auto) 5.7 % (1.0-10.0) Eosinophils (%) (Auto) 4.8 % (0.0-3.0) H Basophils (%) (Auto) 1.2 % (0.0-2.0) Sodium Level 140 MMOL/L (136-145) Potassium Level 3.8 MMOL/L (3.5-5.1) Chloride Level 100 MMOL/L (98-107) Carbon Dioxide Level 33 MMOL/L (21-32) H Anion Gap 7 mmol/L (5-15) Blood Urea Nitrogen 18 mg/dL (7-18) Creatinine 1.0 MG/DL (0.55-1.30) Estimat Glomerular Filtration Rate mL/min (>60) Glucose Level 171 MG/DL (74-106) H Calcium Level 9.5 MG/DL (8.5-10.1) Stool Occult Blood Pending Objective HEAD AND NECK: Mild JVD. Status post tracheostomy. LUNGS: Basilar rales. Coarse rhonchi. CARDIOVASCULAR: Regular S1 and S2 with no gallop. ABDOMEN: Soft. Status post G-tube. EXTREMITIES: No pitting edema. Vipul Hazel MD Aug 26, 2019 15:03
--- NOTE | 2019-08-26 15:08 | Surgery Progress Note ---
Surgery Progress Note Subjective Additional Comments no acute events comfortable stable C tntoed Objective Last 24 Hour Vital Signs Date Time Temp Pulse Resp B/P (MAP) Pulse Ox O2 Delivery O2 Flow Rate FiO2 08/26/19 12:00 98.1 59 23 96/52 (67) 98 08/26/19 12:00 Mechanical Ventilator Mechanical Ventilator 08/26/19 12:00 40 08/26/19 11:35 59 08/26/19 11:20 59 20 40 08/26/19 09:03 61 20 40 08/26/19 08:55 70 124/74 08/26/19 08:00 67 08/26/19 08:00 40 08/26/19 08:00 Mechanical Ventilator Mechanical Ventilator 08/26/19 08:00 97.9 70 26 124/74 (91) 100 08/26/19 07:15 62 20 40 08/26/19 05:28 56 24 40 08/26/19 04:00 98.1 60 20 125/60 (81) 99 08/26/19 04:00 Mechanical Ventilator Mechanical Ventilator 08/26/19 04:00 40 08/26/19 04:00 56 08/26/19 03:33 56 20 40 08/26/19 00:56 57 20 40 08/26/19 00:00 53 08/26/19 00:00 40 08/26/19 00:00 Mechanical Ventilator Mechanical Ventilator 08/25/19 23:45 98.0 56 20 120/60 (80) 100 08/25/19 22:59 55 20 40 08/25/19 21:05 120/60 08/25/19 21:05 56 120/60 08/25/19 20:59 56 20 40 08/25/19 20:00 Mechanical Ventilator Mechanical Ventilator 08/25/19 20:00 40 08/25/19 20:00 60 08/25/19 20:00 98.7 56 20 120/60 (80) 100 08/25/19 19:24 57 20 40 08/25/19 17:03 60 21 40 08/25/19 16:00 Mechanical Ventilator Mechanical Ventilator 08/25/19 16:00 55 08/25/19 16:00 98.0 56 20 133/60 (84) 100 08/25/19 16:00 40 I&O Intake and Output 08/25/19 08/26/19 19:00 07:00 Intake Total 290 ml 450 ml Output Total 500 ml Balance 290 ml -50 ml Intake Oral 250 ml Free Water 50 ml Tube Feeding 40 ml 400 ml Output Urine Total 500 ml # Voids 4 1 Dressing: other Wound: other Drains: other Cardiovascular: RSR Respiratory: decreased breath sounds Abdomen: soft, present bowel sounds Extremities: no cyanosis Laboratory Tests Test 08/26/19 08:05 08/26/19 09:30 White Blood Count 7.5 K/UL (4.8-10.8) Red Blood Count 4.57 M/UL (4.70-6.10) L Hemoglobin 12.0 G/DL (14.2-18.0) L Hematocrit 38.4 % (42.0-52.0) L Mean Corpuscular Volume 84 FL (80-99) Mean Corpuscular Hemoglobin 26.2 PG (27.0-31.0) L Mean Corpuscular Hemoglobin Concent 31.1 G/DL (32.0-36.0) L Red Cell Distribution Width 17.7 % (11.6-14.8) H Platelet Count 240 K/UL (150-450) Mean Platelet Volume 6.4 FL (6.5-10.1) L Neutrophils (%) (Auto) 78.9 % (45.0-75.0) H Lymphocytes (%) (Auto) 9.4 % (20.0-45.0) L Monocytes (%) (Auto) 5.7 % (1.0-10.0) Eosinophils (%) (Auto) 4.8 % (0.0-3.0) H Basophils (%) (Auto) 1.2 % (0.0-2.0) Sodium Level 140 MMOL/L (136-145) Potassium Level 3.8 MMOL/L (3.5-5.1) Chloride Level 100 MMOL/L (98-107) Carbon Dioxide Level 33 MMOL/L (21-32) H Anion Gap 7 mmol/L (5-15) Blood Urea Nitrogen 18 mg/dL (7-18) Creatinine 1.0 MG/DL (0.55-1.30) Estimat Glomerular Filtration Rate mL/min (>60) Glucose Level 171 MG/DL (74-106) H Calcium Level 9.5 MG/DL (8.5-10.1) Stool Occult Blood Pending Plan Problems: (1) Abnormal LFTs Assessment & Plan: 73M with abnormal lft's, abd distention, firm, non tender, KUB as below. diarrhea with tube feeds some oral intake no n/v/f/c okay for diet US The liver is unremarkable. Doppler interrogation of the main portal vein shows patency with hepatopedal, monophasic flow. There is no biliary ductal dilatation identified. Gallbladder is notable for small polyp. Gallbladder wall is prominent but the gallbladder is not fully distended. There is a right pleural effusion. The spleen is prominent measuring about 13 cm. There demonstrated part of the pancreas and IVC show no definite abnormalities. Aorta is calcified. Both kidneys appear unremarkable. There is no hydronephrosis. IMPRESSION: Mild splenomegaly. Right pleural effusion Suspected gallbladder polyp. trend labs abx as per ID will follow with recs thank you Gastrostomy or enterostomy tube in the leftward mid abdomen. No clear bowel obstruction or free air. Pt presented on admission with a maroon discoloration sacrum without induration or fluctuance. 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 No evidence of incontinence associated skin erosion noted Both heels are soft but are both easily blanchable. No other skin concerns noted. Tx.plan: Apply Remedy Antifungal Powder to perineal areas and buttocks with each incontinence care. Reposition at least every 2hours or as tolerated. Off-load heels with pillow. Mild to moderate bilateral pleural effusions with associated compressive atelectasis. Atherosclerotic vascular disease. Tracheostomy Osteopenia Gastrostomy Avel Oneill Aug 26, 2019 15:08
[2019-08-26] MEDS: Acetaminophen 650mg/20.3ml GT PRN ×2 (15:18→20:28)
[2019-08-26] MEDS: Albuterol ud Inhalation HHN SCH ×3 (15:21→23:03)
[2019-08-26 16:00] VITALS: BP 139/67
--- NOTE | 2019-08-26 18:23 | Pulmonology Progress Note ---
Assessment/Plan Assessment/Plan Pulmonary Progress Note Assessment/Plan IMPRESSION CHF pulmonary edema protein calorie malnutrition GINETTE anemia, chronic disease respiratory failure chronic trach gt orthostatic hypotension PLAN VENT as is diurese as able cardiology evaluation monitor cxr- repeat without improvement - will order CT supportive care follow up labs and recommend out of bed as able po with caution dc to snf once imaging improved check BNP impression, plan, and exam edited and reviewed in detail care discussed with RN Subjective Allergies: Coded Allergies: No Known Allergies (Unverified , 08/21/19) Subjective awake remains comfortable no distress on vent all noted Objective Vital Signs Noted Objective WDWN NAD trach and vent reduced breath sounds bilaterally without rhonchi or wheeze [id number] without MRG NABS nontender no HSM; Gt no CC some edema weak nonfocal Laboratory Tests 08/25/19 05:47: Sodium Level 141, Potassium Level 3.2L, Chloride Level 100, Carbon Dioxide Level 33H, Anion Gap 8, Blood Urea Nitrogen 17, Creatinine 1.0, Estimat Glomerular Filtration Rate , Glucose Level 110H, Calcium Level 8.9, Total Bilirubin 0.6, Aspartate Amino Transf (AST/SGOT) 74H, Alanine Aminotransferase ( ALT/SGPT) 87H, Alkaline Phosphatase 117H, Total Protein 8.1, Albumin 2.9L, Globulin 5.2, Albumin/Globulin Ratio 0.6L Current Medications Medications (Trade) Dose Ordered Sig/Deepak Route PRN Reason Start Time Stop Time Status Last Admin Dose Admin Acetaminophen (Tylenol) 650 mg Q4H PRN GT Mild Pain/Temp > 100.5 08/21/19 20:45 09/20/19 20:44 Al Hydroxide/Mg Hydroxide (Mylanta) 30 ml Q6H PRN GT Indigestion 08/21/19 20:45 09/20/19 20:44 Amiodarone HCl (Cordarone) 200 mg DAILY GT 08/22/19 09:00 09/21/19 08:59 08/24/19 09:25 Amoxicillin/ Clavulanate Potassium (Augmentin) 500 mg Q12HR GT 08/24/19 21:00 08/29/19 08:59 08/24/19 21:11 Ascorbic Acid (Vitamin C) 500 mg DAILY GT 08/22/19 09:00 09/21/19 08:59 08/24/19 09:25 Aspirin (Ecotrin) 81 mg DAILY ORAL 2/2/20 09:00 09/22/19 08:59 08/24/19 09:25 Atorvastatin Calcium (Lipitor) 80 mg BEDTIME GT 08/21/19 21:00 09/20/19 20:59 08/24/19 21:10 Bethanechol Chloride (Urecholine) 10 mg TWICE A DAY GT 08/22/19 09:00 09/21/19 08:59 08/24/19 17:45 Carvedilol (Coreg) 3.125 mg EVERY 12 HOURS GT 08/21/19 21:00 09/20/19 20:59 08/24/19 21:12 Dextrose (Dextrose 50%) 25 ml Q30M PRN IV Hypoglycemia 08/21/19 21:00 09/20/19 20:59 Dextrose (Dextrose 50%) 50 ml Q30M PRN IV Hypoglycemia 08/21/19 21:00 09/20/19 20:59 Epoetin Tobin (Epoetin Toibn(ESRD on dialysis)) 10,000 unit SAT-SAT-SAT SUBQ 08/24/19 21:00 09/20/19 20:59 Ferrous Sulfate (Feosol) 330 mg THREE TIMES A DAY GT 08/22/19 09:00 09/21/19 08:59 08/24/19 17:46 Finasteride (Proscar) 5 mg BIOTEC ORAL 08/21/19 21:00 09/20/19 20:59 08/24/19 21:12 Fludrocortisone Acetate (Florinef) 0.05 mg DAILY GT 08/22/19 09:00 09/21/19 08:59 08/24/19 09:27 Furosemide (Lasix) 40 mg EVERY 12 HOURS IV 08/21/19 21:00 09/20/19 20:59 08/24/19 21:10 Heparin Sodium (Porcine) (Heparin 5000 units/ml) 5,000 units EVERY 12 HOURS SUBQ 08/21/19 21:00 09/20/19 20:59 08/24/19 21:14 Insulin Aspart (NovoLOG) BEFORE MEALS AND HS SUBQ 08/21/19 21:00 09/20/19 20:59 Insulin Detemir (Levemir) 6 units BEDTIME SUBQ 08/21/19 21:00 09/20/19 20:59 08/24/19 21:15 Levothyroxine Sodium (Synthroid) 25 mcg DAILY@0630 GT 08/22/19 06:30 09/21/19 06:29 08/25/19 06:29 Losartan Potassium (Cozaar) 12.5 mg BEDTIME ORAL 08/21/19 21:00 09/20/19 20:59 08/24/19 21:12 Multivitamins (Multivitamins W/ Minerals 15ml Liquid) 15 ml DAILY GT 08/22/19 09:00 09/21/19 08:59 08/24/19 09:24 Oxycodone/ Acetaminophen (Percocet 5-325) 1 tab Q4H PRN ORAL Severe Breakthru Pain (>7) 08/21/19 21:00 08/28/19 20:59 Pantoprazole (Protonix) 40 mg DAILY@0630 ORAL 08/22/19 06:30 09/21/19 06:29 08/25/19 06:29 Simethicone (Mylicon) 80 mg QID PRN GT abd discomfort 08/21/19 21:00 09/20/19 20:59 Thiamine HCl (Vitamin B1) 100 mg DAILY GT 08/22/19 09:00 09/21/19 08:59 08/24/19 09:26 Subjective ROS Limited/Unobtainable: No Allergies: Coded Allergies: No Known Allergies (Unverified , 08/21/19) Objective Last 24 Hour Vital Signs Date Time Temp Pulse Resp B/P (MAP) Pulse Ox O2 Delivery O2 Flow Rate FiO2 08/26/19 17:32 70 22 40 08/26/19 16:00 80 08/26/19 16:00 Mechanical Ventilator Mechanical Ventilator 08/26/19 16:00 99.9 71 22 139/67 (91) 100 08/26/19 16:00 40 08/26/19 15:48 98.1 08/26/19 15:20 84 23 100 Mechanical Ventilator 40 86 25 40 08/26/19 13:00 81 26 40 08/26/19 12:00 98.1 59 23 96/52 (67) 98 08/26/19 12:00 Mechanical Ventilator Mechanical Ventilator 08/26/19 12:00 40 08/26/19 11:35 59 08/26/19 11:20 59 20 40 08/26/19 09:03 61 20 40 08/26/19 08:55 70 124/74 08/26/19 08:00 67 08/26/19 08:00 40 08/26/19 08:00 Mechanical Ventilator Mechanical Ventilator 08/26/19 08:00 97.9 70 26 124/74 (91) 100 08/26/19 07:15 62 20 40 08/26/19 05:28 56 24 40 08/26/19 04:00 98.1 60 20 125/60 (81) 99 08/26/19 04:00 Mechanical Ventilator Mechanical Ventilator 08/26/19 04:00 40 08/26/19 04:00 56 08/26/19 03:33 56 20 40 08/26/19 00:56 57 20 40 08/26/19 00:00 53 08/26/19 00:00 40 08/26/19 00:00 Mechanical Ventilator Mechanical Ventilator 08/25/19 23:45 98.0 56 20 120/60 (80) 100 08/25/19 22:59 55 20 40 08/25/19 21:05 120/60 08/25/19 21:05 56 120/60 08/25/19 20:59 56 20 40 08/25/19 20:00 Mechanical Ventilator Mechanical Ventilator 08/25/19 20:00 40 08/25/19 20:00 60 08/25/19 20:00 98.7 56 20 120/60 (80) 100 08/25/19 19:24 57 20 40 Intake and Output 08/25/19 08/26/19 19:00 07:00 Intake Total 290 ml 450 ml Output Total 500 ml Balance 290 ml -50 ml Intake Oral 250 ml Free Water 50 ml Tube Feeding 40 ml 400 ml Output Urine Total 500 ml # Voids 4 1 Laboratory Tests 08/26/19 08:05: White Blood Count 7.5, Red Blood Count 4.57L, Hemoglobin 12.0L, Hematocrit 38.4L , Mean Corpuscular Volume 84, Mean Corpuscular Hemoglobin 26.2L, Mean Corpuscular Hemoglobin Concent 31.1L, Red Cell Distribution Width 17.7H, Platelet Count 240, Mean Platelet Volume 6.4L, Neutrophils (%) (Auto) 78.9H, Lymphocytes (%) (Auto) 9.4L, Monocytes (%) (Auto) 5.7, Eosinophils (%) (Auto) 4.8H, Basophils (%) (Auto) 1.2, Sodium Level 140, Potassium Level 3.8, Chloride Level 100, Carbon Dioxide Level 33H, Anion Gap 7, Blood Urea Nitrogen 18, Creatinine 1.0, Estimat Glomerular Filtration Rate , Glucose Level 171H, Calcium Level 9.5 08/26/19 09:30: Stool Occult Blood [Pending] Current Medications Medications (Trade) Dose Ordered Sig/Deepak Route PRN Reason Start Time Stop Time Status Last Admin Dose Admin Acetaminophen (Tylenol) 650 mg Q4H PRN GT Mild Pain/Temp > 100.5 08/21/19 20:45 09/20/19 20:44 08/26/19 15:18 Al Hydroxide/Mg Hydroxide (Mylanta) 30 ml Q6H PRN GT Indigestion 08/21/19 20:45 09/20/19 20:44 Albuterol Sulfate (Proventil) 2.5 mg Q4HRT HHN 08/26/19 15:00 08/31/19 14:59 08/26/19 15:21 Amiodarone HCl (Cordarone) 200 mg DAILY GT 08/22/19 09:00 09/21/19 08:59 08/26/19 08:55 Amoxicillin/ Clavulanate Potassium (Augmentin) 500 mg Q12HR GT 08/24/19 21:00 08/29/19 08:59 08/26/19 08:55 Ascorbic Acid (Vitamin C) 500 mg DAILY GT 08/22/19 09:00 09/21/19 08:59 08/26/19 08:56 Aspirin (Ecotrin) 81 mg DAILY ORAL 08/23/19 09:00 09/22/19 08:59 08/26/19 08:55 Atorvastatin Calcium (Lipitor) 80 mg BEDTIME GT 08/21/19 21:00 09/20/19 20:59 08/25/19 21:05 Bethanechol Chloride (Urecholine) 10 mg TWICE A DAY GT 08/22/19 09:00 09/21/19 08:59 08/26/19 17:56 Carvedilol (Coreg) 3.125 mg EVERY 12 HOURS GT 08/21/19 21:00 09/20/19 20:59 08/26/19 08:55 Dextrose (Dextrose 50%) 25 ml Q30M PRN IV Hypoglycemia 08/21/19 21:00 09/20/19 20:59 Dextrose (Dextrose 50%) 50 ml Q30M PRN IV Hypoglycemia 08/21/19 21:00 09/20/19 20:59 Epoetin Tobin (Epoetin Tobin-EPBX(NON ESRD)) 10,000 unit MON-WED-SAT SUBQ 08/28/19 21:00 09/27/19 20:59 Ferrous Sulfate (Feosol) 330 mg THREE TIMES A DAY GT 08/22/19 09:00 09/21/19 08:59 08/26/19 17:56 Finasteride (Proscar) 5 mg BIOTEC ORAL 08/21/19 21:00 09/20/19 20:59 08/25/19 21:04 Fludrocortisone Acetate (Florinef) 0.05 mg DAILY GT 08/22/19 09:00 09/21/19 08:59 08/26/19 08:56 Furosemide (Lasix) 40 mg EVERY 12 HOURS IV 08/21/19 21:00 09/20/19 20:59 08/26/19 09:44 Heparin Sodium (Porcine) (Heparin 5000 units/ml) 5,000 units EVERY 12 HOURS SUBQ 08/21/19 21:00 09/20/19 20:59 08/26/19 08:58 Insulin Aspart (NovoLOG) BEFORE MEALS AND HS SUBQ 08/21/19 21:00 09/20/19 20:59 Insulin Detemir (Levemir) 6 units BEDTIME SUBQ 08/21/19 21:00 09/20/19 20:59 08/25/19 21:06 Levothyroxine Sodium (Synthroid) 25 mcg DAILY@0630 GT 08/22/19 06:30 09/21/19 06:29 08/26/19 05:59 Losartan Potassium (Cozaar) 12.5 mg BEDTIME ORAL 08/21/19 21:00 09/20/19 20:59 08/25/19 21:05 Multivitamins (Multivitamins W/ Minerals 15ml Liquid) 15 ml DAILY GT 08/22/19 09:00 09/21/19 08:59 08/26/19 08:55 Oxycodone/ Acetaminophen (Percocet 5-325) 1 tab Q4H PRN ORAL Severe Breakthru Pain (>7) 08/21/19 21:00 08/28/19 20:59 Pantoprazole (Protonix) 40 mg DAILY@0630 ORAL 08/22/19 06:30 09/21/19 06:29 08/26/19 05:59 Simethicone (Mylicon) 80 mg QID PRN GT abd discomfort 08/21/19 21:00 09/20/19 20:59 Spironolactone (Aldactone) 25 mg DAILY ORAL 08/27/19 09:00 09/26/19 08:59 Thiamine HCl (Vitamin B1) 100 mg DAILY GT 08/22/19 09:00 09/21/19 08:59 08/26/19 08:56 [place] Brown MD Aug 26, 2019 18:23
--- NOTE | 2019-08-26 19:06 | NUR ---
HAND-OFF: Report given to MUNIRA RN, NO DISTRESS AT THIS TIME.
--- NOTE | 2019-08-26 19:07 | NUR ---
NURSE NOTES: received pt from Светлана Miramontes RN., pt is resting on the bed and awake AOx4. vent is on O2 sat is at 100% at this moment, no SOB no respiratory distress noted at this moment. Gtube site is intact, clean , and patent. Left FA 20G IV site is intact, clean, and patent and TKO is running. condom cath is on intact. bed at the lowest position, alarmed, and locked. call light within reach. will continue to monitor pt with plan of care. no dysrhythmia reported from previous shift.
[2019-08-26 20:00] VITALS: BP 100/52
[2019-08-26] MEDS: Losartan 25mg tab ORAL SCH (20:24)
[2019-08-26] MEDS: Atorvastatin 80mg tab GT SCH (20:28)
[2019-08-26] MEDS: Levemir Flexpen SUBQ SCH (20:32)
--- NOTE | 2019-08-26 20:48 | NUR ---
NURSE NOTES: left voice mail to Dr. Hazel regarding lasix 40mg IV is it okay to give with bp 97/50. will wait for call back
--- NOTE | 2019-08-26 22:05 | NUR ---
NURSE NOTES: aware regarding pt's BP went down to 66/40 initially and now pt's bp is at 78/39. Dr. Enamorado ordered 1L of NS bolus, and aware pt has CHF exacerbation. noted and will carry on.
--- NOTE | 2019-08-26 22:26 | NUR ---
NURSE NOTES: pt is receiving 1L of NS bolus. pt's at the bedside. call light within reach.
--- NOTE | 2019-08-26 22:26 | NUR ---
NURSE NOTES: BP 82/40 HR 64 , pt is awake and AOx4 . pt's at the bed side . call light within reach. will keep monitor pt closely.
--- NOTE | 2019-08-26 22:47 | NUR ---
NURSE NOTES: BP 87/40 HR 61 pt is AOx4 and awake, will keep monitor pt closely.
[2019-08-26 23:36] VITALS: BP 99/50
--- NOTE | 2019-08-26 23:40 | NUR ---
NURSE NOTES: BP 102/50 HR 65 pt is awake and AOx4. no SOB noted.
--- NOTE | 2019-08-27 02:20 | NUR ---
NURSE NOTES: bp 91 /50 HR 66 at this moment. pt is sleeping and pt's as well.
[2019-08-27] MEDS: Albuterol ud Inhalation HHN SCH ×6 (03:10→23:30)
[2019-08-27 04:00] VITALS: BP_SYST 108; BP_SYST 68; BP_DIAS 50; BP_DIAS 55
[2019-08-27 04:50] LABS: BASOPHILS % (AUTO) 0.5 % (0.0-2.0); EOSINOPHILS % (AUTO) 2.1 % (0.0-3.0); HEMATOCRIT 32.1 % (42.0-52.0); HEMOGLOBIN 10.4 G/DL (14.2-18.0); LYMPHOCYTES % (AUTO) 9.5 % (20.0-45.0); MEAN CORPUSCULAR VOLUME 82 FL (80-99); MONOCYTES % (AUTO) 5.8 % (1.0-10.0); PLATELET COUNT 212 K/UL (150-450); RED BLOOD COUNT 3.91 M/UL (4.70-6.10); RED CELL DISTRIBUTION WIDTH 17.8 % (11.6-14.8); WHITE BLOOD COUNT 12.7 K/UL (4.8-10.8)
[2019-08-27 05:15] LABS: ALANINE AMINOTRANSFERASE 92 U/L (12-78); ALBUMIN 2.6 G/DL (3.4-5.0); ALBUMIN/GLOBULIN RATIO 0.6 (1.0-2.7); ALKALINE PHOSPHATASE 96 U/L (46-116); ANION GAP 9 mmol/L (5-15); ASPARTATE AMINO TRANSFERASE 53 U/L (15-37); BILIRUBIN,TOTAL 0.6 MG/DL (0.2-1.0); BLOOD UREA NITROGEN 24 mg/dL (7-18); CALCIUM 8.5 MG/DL (8.5-10.1); CARBON DIOXIDE 30 MMOL/L (21-32); CHLORIDE 103 MMOL/L (98-107); CREATININE 1.1 MG/DL (0.55-1.30); POTASSIUM 3.7 MMOL/L (3.5-5.1); SODIUM 142 MMOL/L (136-145)
[2019-08-27] MEDS: NovoLOG Insulin Flexpen SUBQ SCH ×4 (05:31→20:37)
[2019-08-27] MEDS: Levothyroxine 25mcg tab GT SCH (05:36)
--- NOTE | 2019-08-27 07:33 | NUR ---
HAND-OFF: Report given to Ayleen CORONEL. pt is stable condition.
--- NOTE | 2019-08-27 07:44 | NUR ---
NURSE NOTES: Received patient in bed. Vent dependent. In no apparent distress. GT inplace. patient's at bedside. Condom cath inplace. Contact isolation observed. Will continue plan of care.
[2019-08-27 08:00] VITALS: BP 105/52
--- NOTE | 2019-08-27 08:58 | Pulmonology Progress Note ---
Assessment/Plan Assessment/Plan IMPRESSION CHF pulmonary edema bilateral pleural effusions protein calorie malnutrition GINETTE anemia, chronic disease respiratory failure chronic trach gt orthostatic hypotension PLAN VENT as is diurese ? dc cardiology evaluation noted thoracentesis if able supportive care follow up labs and recommend out of bed as able po with caution dc to snf once imaging improved and completed tap followup BNP impression, plan, and exam edited and reviewed in detail care discussed with RN Subjective ROS Limited/Unobtainable: Yes Allergies: Coded Allergies: No Known Allergies (Unverified , 08/21/19) Subjective awake remains comfortable hypotensive last night improved with fluids Objective Last 24 Hour Vital Signs Date Time Temp Pulse Resp B/P (MAP) Pulse Ox O2 Delivery O2 Flow Rate FiO2 08/27/19 08:41 63 21 40 08/27/19 08:00 Mechanical Ventilator Mechanical Ventilator 08/27/19 08:00 40 08/27/19 08:00 98.9 65 21 105/52 (69) 98 08/27/19 07:47 65 08/27/19 06:59 65 23 100 Mechanical Ventilator 40 65 23 40 08/27/19 05:00 64 20 40 08/27/19 04:00 40 08/27/19 04:00 98.8 57 20 108/55 (72) 100 08/27/19 04:00 Mechanical Ventilator Mechanical Ventilator 08/27/19 03:30 59 08/27/19 03:10 61 20 100 Mechanical Ventilator 40 61 20 40 08/27/19 00:56 71 20 40 08/27/19 00:00 Mechanical Ventilator Mechanical Ventilator 08/26/19 23:36 98.7 62 20 99/50 (66) 100 08/26/19 23:36 63 08/26/19 23:03 63 20 98 Mechanical Ventilator 40 63 20 40 08/26/19 21:02 75 22 40 08/26/19 20:24 100/52 08/26/19 20:24 70 100/52 08/26/19 20:00 Mechanical Ventilator Mechanical Ventilator 08/26/19 20:00 40 08/26/19 20:00 98.7 70 20 100/52 (68) 100 08/26/19 19:28 68 21 98 Mechanical Ventilator 40 68 21 40 08/26/19 19:01 73 08/26/19 17:32 70 22 40 08/26/19 16:00 80 08/26/19 16:00 Mechanical Ventilator Mechanical Ventilator 08/26/19 16:00 99.9 71 22 139/67 (91) 100 08/26/19 16:00 40 08/26/19 15:48 98.1 08/26/19 15:20 84 23 100 Mechanical Ventilator 40 86 25 40 08/26/19 13:00 81 26 40 08/26/19 12:00 98.1 59 23 96/52 (67) 98 08/26/19 12:00 Mechanical Ventilator Mechanical Ventilator 08/26/19 12:00 40 08/26/19 11:35 59 08/26/19 11:20 59 20 40 08/26/19 09:03 61 20 40 Intake and Output 08/26/19 08/27/19 19:00 07:00 Intake Total 330 ml 240 ml Output Total 650 ml Balance -320 ml 240 ml Intake Oral 200 ml Free Water 50 ml Tube Feeding 80 ml 240 ml Output Urine Total 650 ml # Bowel Movements 1 1 Objective WDWN NAD trach and vent reduced breath sounds bilaterally without rhonchi or wheeze [id number] without MRG NABS nontender no HSM; Gt no CC mild edema weak nonfocal Laboratory Tests 08/26/19 09:30: Stool Occult Blood [Pending] 08/27/19 03:20: White Blood Count 12.7#H, Red Blood Count 3.91L, Hemoglobin 10.4L, Hematocrit 32.1L, Mean Corpuscular Volume 82, Mean Corpuscular Hemoglobin 26.5L, Mean Corpuscular Hemoglobin Concent 32.3, Red Cell Distribution Width 17.8H, Platelet Count 212, Mean Platelet Volume 6.4L, Neutrophils (%) (Auto) 82.0H, Lymphocytes (%) (Auto) 9.5L, Monocytes (%) (Auto) 5.8, Eosinophils (%) (Auto) 2.1, Basophils (%) (Auto) 0.5, Erythrocyte Sedimentation Rate 84H, Sodium Level 142, Potassium Level 3.7, Chloride Level 103, Carbon Dioxide Level 30, Anion Gap 9, Blood Urea Nitrogen 24H, Creatinine 1.1, Estimat Glomerular Filtration Rate , Glucose Level 85, Calcium Level 8.5, Total Bilirubin 0.6, Aspartate Amino Transf (AST/SGOT) 53H, Alanine Aminotransferase (ALT/SGPT) 92H, Alkaline Phosphatase 96, C-Reactive Protein, Quantitative 7.1H, Total Protein 7.1, Albumin 2.6L, Globulin 4.5, Albumin/Globulin Ratio 0.6L Current Medications Medications (Trade) Dose Ordered Sig/Deepak Route PRN Reason Start Time Stop Time Status Last Admin Dose Admin Acetaminophen (Tylenol) 650 mg Q4H PRN GT Mild Pain/Temp > 100.5 08/21/19 20:45 09/20/19 20:44 08/26/19 20:28 Al Hydroxide/Mg Hydroxide (Mylanta) 30 ml Q6H PRN GT Indigestion 08/21/19 20:45 09/20/19 20:44 Albuterol Sulfate (Proventil) 2.5 mg Q4HRT HHN 08/26/19 15:00 08/31/19 14:59 08/27/19 07:18 Amiodarone HCl (Cordarone) 200 mg DAILY GT 08/22/19 09:00 09/21/19 08:59 08/26/19 08:55 Amoxicillin/ Clavulanate Potassium (Augmentin) 500 mg Q12HR GT 08/24/19 21:00 08/29/19 08:59 08/26/19 20:29 Ascorbic Acid (Vitamin C) 500 mg DAILY GT 08/22/19 09:00 09/21/19 08:59 08/26/19 08:56 Aspirin (Ecotrin) 81 mg DAILY ORAL 08/23/19 09:00 09/22/19 08:59 08/26/19 08:55 Atorvastatin Calcium (Lipitor) 80 mg BEDTIME GT 08/21/19 21:00 09/20/19 20:59 08/26/19 20:28 Bethanechol Chloride (Urecholine) 10 mg TWICE A DAY GT 08/22/19 09:00 09/21/19 08:59 08/26/19 17:56 Carvedilol (Coreg) 3.125 mg EVERY 12 HOURS GT 08/21/19 21:00 09/20/19 20:59 08/26/19 08:55 Dextrose (Dextrose 50%) 25 ml Q30M PRN IV Hypoglycemia 08/21/19 21:00 09/20/19 20:59 Dextrose (Dextrose 50%) 50 ml Q30M PRN IV Hypoglycemia 08/21/19 21:00 09/20/19 20:59 Epoetin Tobin (Epoetin Tobin-EPBX(NON ESRD)) 10,000 unit SAT-SAT-SAT SUBQ 08/28/19 21:00 09/27/19 20:59 Ferrous Sulfate (Feosol) 330 mg THREE TIMES A DAY GT 08/22/19 09:00 09/21/19 08:59 08/26/19 17:56 Finasteride (Proscar) 5 mg BIOTEC ORAL 08/21/19 21:00 09/20/19 20:59 08/26/19 20:28 Fludrocortisone Acetate (Florinef) 0.05 mg DAILY GT 08/22/19 09:00 09/21/19 08:59 08/26/19 08:56 Furosemide (Lasix) 40 mg EVERY 12 HOURS IV 08/21/19 21:00 09/20/19 20:59 08/26/19 09:44 Heparin Sodium (Porcine) (Heparin 5000 units/ml) 5,000 units EVERY 12 HOURS SUBQ 08/21/19 21:00 09/20/19 20:59 08/26/19 20:33 Insulin Aspart (NovoLOG) BEFORE MEALS AND HS SUBQ 08/21/19 21:00 09/20/19 20:59 Insulin Detemir (Levemir) 6 units BEDTIME SUBQ 08/21/19 21:00 09/20/19 20:59 08/26/19 20:32 Levothyroxine Sodium (Synthroid) 25 mcg DAILY@0630 GT 08/22/19 06:30 09/21/19 06:29 08/27/19 05:36 Multivitamins (Multivitamins W/ Minerals 15ml Liquid) 15 ml DAILY GT 08/22/19 09:00 09/21/19 08:59 08/26/19 08:55 Oxycodone/ Acetaminophen (Percocet 5-325) 1 tab Q4H PRN ORAL Severe Breakthru Pain (>7) 08/21/19 21:00 08/28/19 20:59 Pantoprazole (Protonix) 40 mg DAILY@0630 ORAL 08/22/19 06:30 09/21/19 06:29 08/27/19 05:36 Simethicone (Mylicon) 80 mg QID PRN GT abd discomfort 08/21/19 21:00 09/20/19 20:59 Spironolactone (Aldactone) 25 mg DAILY ORAL 08/27/19 09:00 09/26/19 08:59 Thiamine HCl (Vitamin B1) 100 mg DAILY GT 08/22/19 09:00 09/21/19 08:59 08/26/19 08:56 Syed Enamorado MD Aug 27, 2019 08:58
[2019-08-27] MEDS: Aspirin EC 81mg tab ORAL SCH (09:00)
[2019-08-27] MEDS: Amiodarone 200mg tab GT SCH (09:42)
[2019-08-27] MEDS ORDERED: oxyCODONE HCL/Acetaminophen 5/325mg ORAL PRN (10:00)
[2019-08-27 10:06] LABS: INR 1.1 (0.9-1.1)
--- NOTE | 2019-08-27 10:06 | Cardiac Electrophysiology PN ---
Assessment/Plan Assessment/Plan 1. Shortness of breath, could be due to CHF exacerbation EF 35% with BNP of almost 6000. Continue Lasix 40 mg IV b.i.d., Coreg 3.125 mg bid, losartan 12.5 mg daily and Aldactone 25 daily Scheduled for Left thoracentesis today 2. PAF, in sinus rhythm, on Coreg, amiodarone 200 mg daily and Aspirin 3. CAD and prior stent in 2017, no chest pain on Coreg, Lipitor and aspirin 4. Ventilator-dependent respiratory failure and COPD.S/P Tracheostomy. Further evaluation by Dr. Enamorado. 5. Dysphagia, status post G-tube, but also the patient eats food. DW and RN at bedside Subjective Subjective No events. at bedside. Alert in NAD on Vent via Tracheostomy with 35% Fio2. Scheduled for Left thoracentesis today Objective Last 24 Hour Vital Signs Date Time Temp Pulse Resp B/P (MAP) Pulse Ox O2 Delivery O2 Flow Rate FiO2 08/27/19 09:42 57 08/27/19 09:42 57 105/52 08/27/19 08:41 63 21 40 08/27/19 08:00 Mechanical Ventilator Mechanical Ventilator 08/27/19 08:00 40 08/27/19 08:00 98.9 65 21 105/52 (69) 98 08/27/19 07:47 65 08/27/19 06:59 65 23 100 Mechanical Ventilator 40 65 23 40 08/27/19 05:00 64 20 40 08/27/19 04:00 40 08/27/19 04:00 98.8 57 20 108/55 (72) 100 08/27/19 04:00 Mechanical Ventilator Mechanical Ventilator 08/27/19 03:30 59 08/27/19 03:10 61 20 100 Mechanical Ventilator 40 61 20 40 08/27/19 00:56 71 20 40 08/27/19 00:00 Mechanical Ventilator Mechanical Ventilator 08/26/19 23:36 98.7 62 20 99/50 (66) 100 08/26/19 23:36 63 08/26/19 23:03 63 20 98 Mechanical Ventilator 40 63 20 40 08/26/19 21:02 75 22 40 08/26/19 20:24 100/52 08/26/19 20:24 70 100/52 08/26/19 20:00 Mechanical Ventilator Mechanical Ventilator 08/26/19 20:00 40 08/26/19 20:00 98.7 70 20 100/52 (68) 100 08/26/19 19:28 68 21 98 Mechanical Ventilator 40 68 21 40 08/26/19 19:01 73 08/26/19 17:32 70 22 40 08/26/19 16:00 80 08/26/19 16:00 Mechanical Ventilator Mechanical Ventilator 08/26/19 16:00 99.9 71 22 139/67 (91) 100 08/26/19 16:00 40 08/26/19 15:48 98.1 08/26/19 15:20 84 23 100 Mechanical Ventilator 40 86 25 40 08/26/19 13:00 81 26 40 08/26/19 12:00 98.1 59 23 96/52 (67) 98 08/26/19 12:00 Mechanical Ventilator Mechanical Ventilator 08/26/19 12:00 40 08/26/19 11:35 59 08/26/19 11:20 59 20 40 Intake and Output 08/26/19 08/27/19 18:59 06:59 Intake Total 370 ml 240 ml Output Total 650 ml Balance -280 ml 240 ml Intake Oral 200 ml Free Water 50 ml Tube Feeding 120 ml 240 ml Output Urine Total 650 ml # Bowel Movements 1 1 Laboratory Tests Test 08/27/19 03:20 08/27/19 09:47 White Blood Count 12.7 K/UL (4.8-10.8) #H Red Blood Count 3.91 M/UL (4.70-6.10) L Hemoglobin 10.4 G/DL (14.2-18.0) L Hematocrit 32.1 % (42.0-52.0) L Mean Corpuscular Volume 82 FL (80-99) Mean Corpuscular Hemoglobin 26.5 PG (27.0-31.0) L Mean Corpuscular Hemoglobin Concent 32.3 G/DL (32.0-36.0) Red Cell Distribution Width 17.8 % (11.6-14.8) H Platelet Count 212 K/UL (150-450) Mean Platelet Volume 6.4 FL (6.5-10.1) L Neutrophils (%) (Auto) 82.0 % (45.0-75.0) H Lymphocytes (%) (Auto) 9.5 % (20.0-45.0) L Monocytes (%) (Auto) 5.8 % (1.0-10.0) Eosinophils (%) (Auto) 2.1 % (0.0-3.0) Basophils (%) (Auto) 0.5 % (0.0-2.0) Erythrocyte Sedimentation Rate 84 MM/HR (0-20) H Sodium Level 142 MMOL/L (136-145) Potassium Level 3.7 MMOL/L (3.5-5.1) Chloride Level 103 MMOL/L (98-107) Carbon Dioxide Level 30 MMOL/L (21-32) Anion Gap 9 mmol/L (5-15) Blood Urea Nitrogen 24 mg/dL (7-18) H Creatinine 1.1 MG/DL (0.55-1.30) Estimat Glomerular Filtration Rate mL/min (>60) Glucose Level 85 MG/DL (74-106) Calcium Level 8.5 MG/DL (8.5-10.1) Total Bilirubin 0.6 MG/DL (0.2-1.0) Aspartate Amino Transf (AST/SGOT) 53 U/L (15-37) H Alanine Aminotransferase (ALT/SGPT) 92 U/L (12-78) H Alkaline Phosphatase 96 U/L (46-116) C-Reactive Protein, Quantitative 7.1 mg/dL (0.00-0.90) H Total Protein 7.1 G/DL (6.4-8.2) Albumin 2.6 G/DL (3.4-5.0) L Globulin 4.5 g/dL Albumin/Globulin Ratio 0.6 (1.0-2.7) L Prothrombin Time Pending Prothromb Time International Ratio Pending Activated Partial Thromboplast Time Pending Objective HEAD AND NECK: Mild JVD. Status post tracheostomy. LUNGS: Basilar rales. Coarse rhonchi. CARDIOVASCULAR: Regular S1 and S2 with no gallop. ABDOMEN: Soft. Status post G-tube. EXTREMITIES: No pitting edema. Vipul Hazel MD Aug 27, 2019 10:06
[2019-08-27] MEDS: Ferrous Sulfate 300 MG/5 ML UDC GT SCH ×3 (10:14→21:46)
[2019-08-27] MEDS: Multivitamins W/Minerals 15 ML UDC GT SCH (10:14)
[2019-08-27] MEDS: Thiamine 100mg tab GT SCH (10:15)
[2019-08-27] MEDS: Spironolactone 25mg tab ORAL SCH (10:15)
[2019-08-27] MEDS: Bethanechol 25mg Tab GT SCH ×2 (10:15→17:39)
[2019-08-27] MEDS: Ascorbic Acid 500mg tab GT SCH (10:15)
--- NOTE | 2019-08-27 11:12 | NUR ---
NURSE NOTES: Informed Dr. Enamorado via telephone that apparatus engineering technologist/Maria Ines said that there's not enough fluid to continue with thoracentesis. No new order at this time.
[2019-08-27 12:00] VITALS: BP 111/57
--- NOTE | 2019-08-27 12:02 | Diagnostic Imaging Report ---
Indications: Pleural effusion. Assessment prior to requested procedure of therapeutic thoracentesis. Technique: Ultrasound evaluation of bilateral chest performed in real time. FINDINGS: Recent CT chest 08/25/2019 and radiograph were reviewed. There are small bilateral pleural effusions. Neither pleural effusion is nearly enough to warrant the thoracentesis procedure for therapeutic purposes. Furthermore, the pleural effusions are almost certainly on the basis of congestive heart failure which there is evidence of on the last chest x-ray. The pleural effusions would be expected to improve or resolve with appropriate treatment of the underlying cause, which is hemodynamically related. Recommend follow-up chest x-ray. Unless there is compelling reason to perform a diagnostic thoracentesis (e.g. leukocytosis or concern for malignancy), the procedure is not warranted given the absence of appropriate indication and the greater risk of pneumothorax given the small volume of fluid present. IMPRESSION: Small bilateral pleural effusions. Therapeutic thoracentesis will not be performed.
--- NOTE | 2019-08-27 14:23 | General Progress Note ---
Assessment/Plan Problem List: (1) Ventilator dependent ICD Codes: Z99.11 - Dependence on respirator [ventilator] status SNOMED: 095683180 (2) CHF exacerbation ICD Codes: I50.9 - Heart failure, unspecified SNOMED: 421477053, 99352704440635 (3) Abnormal LFTs ICD Codes: R94.5 - Abnormal results of liver function studies SNOMED: 612778371 (4) Abnormal laboratory test result ICD Codes: R89.9 - Unspecified abnormal finding in specimens from other organs , systems and tissues SNOMED: 828525379 Status: stable Assessment/Plan: stable iv lasix as bp tolerates replace lytes as needed monitor cbc and stool ob o2 resp rx suctioning abx amiodarone rx d/w at the bedside Subjective ROS Limited/Unobtainable: No Constitutional: Reports: malaise, weakness HEENT: Reports: no symptoms Cardiovascular: Reports: no symptoms Respiratory: Reports: shortness of breath Gastrointestinal/Abdominal: Reports: difficulty swallowing Genitourinary: Reports: no symptoms Neurologic/Psychiatric: Reports: pre-existing deficit Endocrine: Reports: no symptoms Hematologic/Lymphatic: Reports: anemia Allergies: Coded Allergies: No Known Allergies (Unverified , 08/21/19) All Systems: reviewed and negative except above Subjective no new complaints. still with sob when eating. bp on the low side. Objective Last 24 Hour Vital Signs Date Time Temp Pulse Resp B/P (MAP) Pulse Ox O2 Delivery O2 Flow Rate FiO2 08/27/19 12:30 66 20 40 08/27/19 12:00 99.4 62 20 111/57 (75) 100 08/27/19 12:00 Mechanical Ventilator Mechanical Ventilator 08/27/19 12:00 40 08/27/19 11:45 62 08/27/19 10:57 60 21 Mechanical Ventilator 40 40 08/27/19 09:42 57 08/27/19 09:42 57 105/52 08/27/19 08:41 63 21 40 08/27/19 08:00 Mechanical Ventilator Mechanical Ventilator 08/27/19 08:00 40 08/27/19 08:00 98.9 65 21 105/52 (69) 98 08/27/19 07:47 65 08/27/19 06:59 65 23 100 Mechanical Ventilator 40 65 23 40 08/27/19 05:00 64 20 40 08/27/19 04:00 40 08/27/19 04:00 98.8 57 20 108/55 (72) 100 08/27/19 04:00 Mechanical Ventilator Mechanical Ventilator 08/27/19 03:30 59 08/27/19 03:10 61 20 100 Mechanical Ventilator 40 61 20 40 08/27/19 00:56 71 20 40 08/27/19 00:00 Mechanical Ventilator Mechanical Ventilator 08/26/19 23:36 98.7 62 20 99/50 (66) 100 08/26/19 23:36 63 08/26/19 23:03 63 20 98 Mechanical Ventilator 40 63 20 40 08/26/19 21:02 75 22 40 08/26/19 20:24 100/52 08/26/19 20:24 70 100/52 08/26/19 20:00 Mechanical Ventilator Mechanical Ventilator 08/26/19 20:00 40 08/26/19 20:00 98.7 70 20 100/52 (68) 100 08/26/19 19:28 68 21 98 Mechanical Ventilator 40 68 21 40 08/26/19 19:01 73 08/26/19 17:32 70 22 40 08/26/19 16:00 80 08/26/19 16:00 Mechanical Ventilator Mechanical Ventilator 08/26/19 16:00 99.9 71 22 139/67 (91) 100 08/26/19 16:00 40 08/26/19 15:48 98.1 08/26/19 15:20 84 23 100 Mechanical Ventilator 40 86 25 40 Intake and Output 08/26/19 08/27/19 19:00 07:00 Intake Total 330 ml 240 ml Output Total 650 ml Balance -320 ml 240 ml Intake Oral 200 ml Free Water 50 ml Tube Feeding 80 ml 240 ml Output Urine Total 650 ml # Bowel Movements 1 1 Laboratory Tests 08/27/19 03:20: White Blood Count 12.7#H, Red Blood Count 3.91L, Hemoglobin 10.4L, Hematocrit 32.1L, Mean Corpuscular Volume 82, Mean Corpuscular Hemoglobin 26.5L, Mean Corpuscular Hemoglobin Concent 32.3, Red Cell Distribution Width 17.8H, Platelet Count 212, Mean Platelet Volume 6.4L, Neutrophils (%) (Auto) 82.0H, Lymphocytes (%) (Auto) 9.5L, Monocytes (%) (Auto) 5.8, Eosinophils (%) (Auto) 2.1, Basophils (%) (Auto) 0.5, Erythrocyte Sedimentation Rate 84H, Sodium Level 142, Potassium Level 3.7, Chloride Level 103, Carbon Dioxide Level 30, Anion Gap 9, Blood Urea Nitrogen 24H, Creatinine 1.1, Estimat Glomerular Filtration Rate , Glucose Level 85, Calcium Level 8.5, Total Bilirubin 0.6, Aspartate Amino Transf (AST/SGOT) 53H, Alanine Aminotransferase (ALT/SGPT) 92H, Alkaline Phosphatase 96, C-Reactive Protein, Quantitative 7.1H, Total Protein 7.1, Albumin 2.6L, Globulin 4.5, Albumin/Globulin Ratio 0.6L 08/27/19 09:47: Prothrombin Time 11.4, Prothromb Time International Ratio 1.1, Activated Partial Thromboplast Time 35H Height (Feet): 5 Height (Inches): 7.00 Weight (Pounds): 162 Objective General Appearance: WD/WN, alert Neck: supple Cardiovascular: regular rhythm Respiratory/Chest: lungs clear Abdomen: normal bowel sounds, non tender, soft, no organomegaly Edema: no edema noted Arm (L), no edema noted Arm (R), no edema noted Leg (L), no edema noted Leg (R), no edema noted Pedal (L), no edema noted Pedal (R), no edema noted Generalized Reed Pérez MD Aug 27, 2019 14:23
--- NOTE | 2019-08-27 15:37 | Surgery Progress Note ---
Surgery Progress Note Subjective Additional Comments leukocytosis esr and crp elevated US noted no thora Objective Last 24 Hour Vital Signs Date Time Temp Pulse Resp B/P (MAP) Pulse Ox O2 Delivery O2 Flow Rate FiO2 08/27/19 12:30 66 20 40 08/27/19 12:00 99.4 62 20 111/57 (75) 100 08/27/19 12:00 Mechanical Ventilator Mechanical Ventilator 08/27/19 12:00 40 08/27/19 11:45 62 08/27/19 10:57 60 21 Mechanical Ventilator 40 40 08/27/19 09:42 57 08/27/19 09:42 57 105/52 08/27/19 08:41 63 21 40 08/27/19 08:00 Mechanical Ventilator Mechanical Ventilator 08/27/19 08:00 40 08/27/19 08:00 98.9 65 21 105/52 (69) 98 08/27/19 07:47 65 08/27/19 06:59 65 23 100 Mechanical Ventilator 40 65 23 40 08/27/19 05:00 64 20 40 08/27/19 04:00 40 08/27/19 04:00 98.8 57 20 108/55 (72) 100 08/27/19 04:00 Mechanical Ventilator Mechanical Ventilator 08/27/19 03:30 59 08/27/19 03:10 61 20 100 Mechanical Ventilator 40 61 20 40 08/27/19 00:56 71 20 40 08/27/19 00:00 Mechanical Ventilator Mechanical Ventilator 08/26/19 23:36 98.7 62 20 99/50 (66) 100 08/26/19 23:36 63 08/26/19 23:03 63 20 98 Mechanical Ventilator 40 63 20 40 08/26/19 21:02 75 22 40 08/26/19 20:24 100/52 08/26/19 20:24 70 100/52 08/26/19 20:00 Mechanical Ventilator Mechanical Ventilator 08/26/19 20:00 40 08/26/19 20:00 98.7 70 20 100/52 (68) 100 08/26/19 19:28 68 21 98 Mechanical Ventilator 40 68 21 40 08/26/19 19:01 73 08/26/19 17:32 70 22 40 08/26/19 16:00 80 08/26/19 16:00 Mechanical Ventilator Mechanical Ventilator 08/26/19 16:00 99.9 71 22 139/67 (91) 100 08/26/19 16:00 40 08/26/19 15:48 98.1 I&O Intake and Output 08/26/19 08/27/19 19:00 07:00 Intake Total 330 ml 240 ml Output Total 650 ml Balance -320 ml 240 ml Intake Oral 200 ml Free Water 50 ml Tube Feeding 80 ml 240 ml Output Urine Total 650 ml # Bowel Movements 1 1 Dressing: other Wound: other Drains: other Cardiovascular: RSR Respiratory: decreased breath sounds Abdomen: present bowel sounds Extremities: no cyanosis, other Laboratory Tests Test 08/27/19 03:20 08/27/19 09:47 White Blood Count 12.7 K/UL (4.8-10.8) #H Red Blood Count 3.91 M/UL (4.70-6.10) L Hemoglobin 10.4 G/DL (14.2-18.0) L Hematocrit 32.1 % (42.0-52.0) L Mean Corpuscular Volume 82 FL (80-99) Mean Corpuscular Hemoglobin 26.5 PG (27.0-31.0) L Mean Corpuscular Hemoglobin Concent 32.3 G/DL (32.0-36.0) Red Cell Distribution Width 17.8 % (11.6-14.8) H Platelet Count 212 K/UL (150-450) Mean Platelet Volume 6.4 FL (6.5-10.1) L Neutrophils (%) (Auto) 82.0 % (45.0-75.0) H Lymphocytes (%) (Auto) 9.5 % (20.0-45.0) L Monocytes (%) (Auto) 5.8 % (1.0-10.0) Eosinophils (%) (Auto) 2.1 % (0.0-3.0) Basophils (%) (Auto) 0.5 % (0.0-2.0) Erythrocyte Sedimentation Rate 84 MM/HR (0-20) H Sodium Level 142 MMOL/L (136-145) Potassium Level 3.7 MMOL/L (3.5-5.1) Chloride Level 103 MMOL/L (98-107) Carbon Dioxide Level 30 MMOL/L (21-32) Anion Gap 9 mmol/L (5-15) Blood Urea Nitrogen 24 mg/dL (7-18) H Creatinine 1.1 MG/DL (0.55-1.30) Estimat Glomerular Filtration Rate mL/min (>60) Glucose Level 85 MG/DL (74-106) Calcium Level 8.5 MG/DL (8.5-10.1) Total Bilirubin 0.6 MG/DL (0.2-1.0) Aspartate Amino Transf (AST/SGOT) 53 U/L (15-37) H Alanine Aminotransferase (ALT/SGPT) 92 U/L (12-78) H Alkaline Phosphatase 96 U/L (46-116) C-Reactive Protein, Quantitative 7.1 mg/dL (0.00-0.90) H Total Protein 7.1 G/DL (6.4-8.2) Albumin 2.6 G/DL (3.4-5.0) L Globulin 4.5 g/dL Albumin/Globulin Ratio 0.6 (1.0-2.7) L Prothrombin Time 11.4 SEC (9.30-11.50) Prothromb Time International Ratio 1.1 (0.9-1.1) Activated Partial Thromboplast Time 35 SEC (23-33) H Plan Problems: (1) Abnormal LFTs Assessment & Plan: 73M with abnormal lft's, abd distention, firm, non tender, KUB as below. diarrhea with tube feeds some oral intake no n/v/f/c okay for diet US The liver is unremarkable. Doppler interrogation of the main portal vein shows patency with hepatopedal, monophasic flow. There is no biliary ductal dilatation identified. Gallbladder is notable for small polyp. Gallbladder wall is prominent but the gallbladder is not fully distended. There is a right pleural effusion. The spleen is prominent measuring about 13 cm. There demonstrated part of the pancreas and IVC show no definite abnormalities. Aorta is calcified. Both kidneys appear unremarkable. There is no hydronephrosis. IMPRESSION: Mild splenomegaly. Right pleural effusion Suspected gallbladder polyp. trend labs abx as per ID will follow with recs thank you Gastrostomy or enterostomy tube in the leftward mid abdomen. No clear bowel obstruction or free air. Pt presented on admission with a maroon discoloration sacrum without induration or fluctuance. 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 No evidence of incontinence associated skin erosion noted Both heels are soft but are both easily blanchable. No other skin concerns noted. Tx.plan: Apply Remedy Antifungal Powder to perineal areas and buttocks with each incontinence care. Reposition at least every 2hours or as tolerated. Off-load heels with pillow. Mild to moderate bilateral pleural effusions with associated compressive atelectasis. Atherosclerotic vascular disease. Tracheostomy Osteopenia Gastrostomy Avel Oneill Aug 27, 2019 15:37
--- NOTE | 2019-08-27 15:41 | NUR ---
NOTES: REFERRED FOR SWALLOW EVALUATION BY DR. AUGUSTE, SEE FULL REPORT. DYSPHAGIA RISK FACTORS FOR THIS 73 Y.O.M.: ACUTE ISSUES: CHF EXACERBATION, PULMONARY EDEMA, CHRONIC TRACH/VENT DEPENDENT SINCE LAST YEAR (MAY 2019). POSSIBLE NEED FOR THORACENTESIS. LUNGS CLEAR UPON ADMISSION AND LAST CXR 08/25/19 NOTED Mild to moderate bilateral pleural effusions with associated compressive atelectasis. HISTORY/COMORBIDITIES: DM2, VT, CAD, CHRONIC RESPIRATORY FAILURE/VENT DEP, AND COPD. PER PATIENT'S , MILD TIA/CVA NO RESIDUALS 2015 AND VT AND CARDIAC STENT PLACED 2016. HE WAS AT [facility] 04/2019 FOR RESPIRATORY FAILURE WITH NEED FOR TRACH/VENT 05/14/19 AND ASPIRATION PNEUMONIA NOTED 05/20/19. CARDIAC ARREST APR OR . GT PLACED AT [place] (? 06/2019). AT [facility] CXR NOTED 08/14/19 BILATERAL INFILTRATES WORSE. ON PEG FEEDINGS AND ORAL GRATIFICATION (PUREED AND MILDLY THICK LIQUIDS) ONE TIME PER DAY LATER B/L/D 08/05/19 NOTE. CURRENTLY, THE PATIENT GETS PEG FEEDINGS 12 HOURS AT NIGHT (7 TO 7) AND ON ORAL GRATIFICATION OF 3 MEALS A DAY (PUREED AND NECTAR THICK LIQUIDS) WITH GOOD INTAKE AND FEEDING. PER HIS , THE PATIENT IS EATING WITH SPEAKING VALVE ON (LIKE AT [facility]) BUT HIS VOICE IS WET AND HE COUGHS WHEN HE EATS/DRINKS. THE PATIENT SAYS SHE CAN NOT COUGH UP TO CLEAR HIS THROAT. PER RT, THE PATIENT HAS MODERATE AMOUNTS OF TRACHEAL SECRETIONS. PER THE PATIENT'S , HE HAS NOT HAD A MODIFIED BARIUM SWALLOW STUDY TO DATE WHICH WOULD FURTHER ASSESS THE SWALLOW, DETERMINE SILENT ASPIRATION RISK AND ETIOLOGY, AND ALLOW FOR ATTEMPTS AT TRIAL TX TECHNIQUES. WILL HOLD ON PO TRIALS DUE TO HIGH SILENT ASPIRATION RISK AND GIVEN THAT THERE ARE FALSE POSITIVE/FALSE NEGATIVE RESULTS OF FOOD COLORING TESTS. INITIAL IMPRESSIONS: REPORTED S/S OF POSSIBLE ASPIRATION (AUDIBLE WET VOICE AND COUGH) WITH PUREED AND NECTAR THICK LIQUIDS) DURING MEALS WITH SPEAKING VALVE INLINE WITH VENT AND CUFF DEFLATED. HIGH RISK FOR PERSISTENT OR WORSENED OROPHARYNGEAL DYSPHAGIA HIGH RISK FOR SILENT ASPIRATION AND SIGNIFICANT PHARYNGEAL DYSPHAGIA ASPIRATION RISK ALSO HIGH GIVEN RESPIRATORY INCOORDINATION DEFICITS ADEQUATE OROMOTOR SKILLS AND MAY HAVE A GROSSLY FUNCTIONAL ORAL PHASE VOICE IS STRONG WITH SPEAKING VALVE ON. COUGH IS FAIR WITH SPEAKING VALVE ON. RECOMMENDATIONS: CONSIDER HOLDING PO INTAKE AT THIS TIME UNTIL THE PATIENT CAN HAVE A MODIFIED BARUIM SWALLOW STUDY AN INPT OR OUTPT IF DC TOMORROW. UNABLE TO COMPLETE STUDY TODAY DUE TO SCHEDULING CONFLICTS. CONTINUE WITH NONORAL PEG FEEDINGS BUT CHANGE TO CONTINUOUS FEEDS PER RD RECOMMENDATIONS. CONTINUE WITH ORAL CARE AND USE OF SPEAKING VALVE FOR COMMUNICATION PRACTICE. SKILLED DYSPHAGIA MANAGEMENT AND TX EDUCATED/TRAINED /STAFF IN ORAL CARE AND ASPIRATION PRECAUTIONS WITH PEG TUBE FEEDINGS RUNNING.
--- NOTE | 2019-08-27 15:50 | NUR ---
ST NOTES: SEE VOICE AND SPEAKING VALVE EVAL IN ST CARE ACTIVITY SECTION. IMPRESSIONS: APHONIA DUE TO TRACH/VENT GROSSLY FUNCTIONAL AND INTELLIGIBLE VOICE WITH SPEAKING VALVE INLINE WITH VENT FOR 15 MINUTES (COUNTING, DAYS OF WEEK, MONTHS, SHORT PHRASES) W/O SIGNIFICANT VITAL SIGN CHANGES. PLAN: SEE PLAN OF CARE
[2019-08-27 16:00] VITALS: BP 116/61
--- NOTE | 2019-08-27 16:00 | NUR ---
NURSE NOTES: Records from [facility] obtained via fax. As per request by Dr. Hazel. Placed in patient's chart.
--- NOTE | 2019-08-27 19:15 | NUR ---
NURSE NOTES: received pt from HOMER Abbasi. pt is observed resting in bed, eyes open, AO X4, denies pain at this time. pt's is at bedside. pt's trach to vent settings are as follows: Shiley: 8, AC: 20, TV: 450, FiO2: 40%, PEEP: 5. no s/sx of respiratory distress noted at this time. engine monitor shows SR with current HR of 68; no acute cardiac distress noted. condom catheter applied to pt, draining aleshia urine. skin alterations noted. LFA 20 g IV site is patent and intact, asymptomatic. bed in lowest position and locked, siderails up X3, call light within reach. will continue to monitor.
--- NOTE | 2019-08-27 19:28 | NUR ---
HAND-OFF: Report given to Denae Longoria RN.
[2019-08-27 20:00] VITALS: BP 140/62
[2019-08-27] MEDS: Atorvastatin 80mg tab GT SCH (20:34)
[2019-08-27] MEDS: Levemir Flexpen SUBQ SCH (20:37)
[2019-08-28] VITALS: BP 125/50
[2019-08-28] MEDS: Albuterol ud Inhalation HHN SCH ×3 (03:44→12:59)
[2019-08-28 04:00] VITALS: BP 120/60
[2019-08-28 05:13] LABS: BASOPHILS % (AUTO) 0.5 % (0.0-2.0); EOSINOPHILS % (AUTO) 4.4 % (0.0-3.0); HEMATOCRIT 34.6 % (42.0-52.0); LYMPHOCYTES % (AUTO) 13.1 % (20.0-45.0); MEAN CORPUSCULAR VOLUME 83 FL (80-99); MONOCYTES % (AUTO) 7.5 % (1.0-10.0); NEUTROPHILS % (AUTO) 74.6 % (45.0-75.0); PLATELET COUNT 224 K/UL (150-450); RED BLOOD COUNT 4.17 M/UL (4.70-6.10); RED CELL DISTRIBUTION WIDTH 17.6 % (11.6-14.8); WHITE BLOOD COUNT 8.2 K/UL (4.8-10.8)
[2019-08-28 05:54] LABS: ALANINE AMINOTRANSFERASE 93 U/L (12-78); ALBUMIN 2.7 G/DL (3.4-5.0); ALBUMIN/GLOBULIN RATIO 0.5 (1.0-2.7); ALKALINE PHOSPHATASE 102 U/L (46-116); ANION GAP 9 mmol/L (5-15); ASPARTATE AMINO TRANSFERASE 52 U/L (15-37); BILIRUBIN,TOTAL 0.5 MG/DL (0.2-1.0); BLOOD UREA NITROGEN 23 mg/dL (7-18); CALCIUM 9.2 MG/DL (8.5-10.1); CARBON DIOXIDE 29 MMOL/L (21-32); CHLORIDE 100 MMOL/L (98-107); CREATININE 0.9 MG/DL (0.55-1.30); POTASSIUM 3.4 MMOL/L (3.5-5.1); SODIUM 138 MMOL/L (136-145)
[2019-08-28] MEDS: NovoLOG Insulin Flexpen SUBQ SCH ×2 (06:30→11:26)
[2019-08-28] MEDS: Ferrous Sulfate 300 MG/5 ML UDC GT SCH ×2 (06:30→14:00)
[2019-08-28] MEDS: Levothyroxine 25mcg tab GT SCH (06:31)
--- NOTE | 2019-08-28 07:45 | NUR ---
NURSE NOTES: Received report from Denae Longoria RN. Observed patient in bed, awake, alert, follows commands. On trach-vent with settings AC 20, TV 450, FiO2 40%, and PEEP 5. No respiratory distress noted at this time. air sampling and monitoring shows sinus bradycardia with HR 58bpm. GT intact and patent, feeding restarted, running at 40ml/hr. HOB elevated. External catheter noted, intact and draining well to gravity. Patient denies pain/discomfort at this time. Bed locked, alarmed, and in lowest position, side rails up x3, and call light left within reach. present at bedside, instructed to call for assistance, verbalized understanding. Will continue plan of care and will continue to monitor patient.
--- NOTE | 2019-08-28 07:49 | General Progress Note ---
Assessment/Plan Problem List: (1) Ventilator dependent ICD Codes: Z99.11 - Dependence on respirator [ventilator] status SNOMED: 985999006 (2) CHF exacerbation ICD Codes: I50.9 - Heart failure, unspecified SNOMED: 301940568, 76637566771759 (3) Abnormal LFTs ICD Codes: R94.5 - Abnormal results of liver function studies SNOMED: 753833112 (4) Abnormal laboratory test result ICD Codes: R89.9 - Unspecified abnormal finding in specimens from other organs , systems and tissues SNOMED: 388546291 Status: stable Assessment/Plan: stable iv lasix as bp tolerates replace lytes as needed monitor cbc and stool ob o2 resp rx suctioning abx amiodarone rx Subjective ROS Limited/Unobtainable: No Constitutional: Reports: malaise, weakness HEENT: Reports: no symptoms Cardiovascular: Reports: no symptoms Respiratory: Reports: cough, shortness of breath Gastrointestinal/Abdominal: Reports: no symptoms Genitourinary: Reports: no symptoms Neurologic/Psychiatric: Reports: pre-existing deficit Endocrine: Reports: no symptoms Hematologic/Lymphatic: Reports: no symptoms Allergies: Coded Allergies: No Known Allergies (Unverified , 08/21/19) All Systems: reviewed and negative except above Subjective no new complaints. still with sob when eating. low k Objective Last 24 Hour Vital Signs Date Time Temp Pulse Resp B/P (MAP) Pulse Ox O2 Delivery O2 Flow Rate FiO2 08/28/19 05:52 58 16 100 Mechanical Ventilator 08/28/19 04:52 62 20 40 08/28/19 04:00 40 08/28/19 04:00 Mechanical Ventilator Mechanical Ventilator 08/28/19 04:00 97.9 58 20 120/60 (80) 100 08/28/19 04:00 58 08/28/19 03:44 58 20 100 Mechanical Ventilator 40 60 19 40 08/28/19 00:40 57 20 40 08/28/19 00:00 58 08/28/19 00:00 98.2 62 21 125/50 (75) 100 08/28/19 00:00 40 08/28/19 00:00 Mechanical Ventilator Mechanical Ventilator 08/27/19 23:31 58 21 100 Mechanical Ventilator 40 60 20 40 08/27/19 21:08 60 20 40 08/27/19 20:00 98.4 63 24 140/62 (88) 99 08/27/19 20:00 Mechanical Ventilator Mechanical Ventilator 08/27/19 20:00 40 08/27/19 20:00 68 08/27/19 19:21 63 20 100 Mechanical Ventilator 40 64 20 40 08/27/19 17:10 65 22 40 08/27/19 16:00 63 08/27/19 16:00 Mechanical Ventilator Mechanical Ventilator 08/27/19 16:00 98.6 62 21 116/61 (79) 100 08/27/19 16:00 40 08/27/19 15:14 61 22 100 Mechanical Ventilator 40 65 20 40 08/27/19 12:30 66 20 40 08/27/19 12:00 99.4 62 20 111/57 (75) 100 08/27/19 12:00 Mechanical Ventilator Mechanical Ventilator 08/27/19 12:00 40 08/27/19 11:45 62 08/27/19 10:57 60 21 100 Mechanical Ventilator 40 62 22 40 08/27/19 09:42 57 08/27/19 09:42 57 105/52 08/27/19 08:41 63 21 40 08/27/19 08:00 Mechanical Ventilator Mechanical Ventilator 08/27/19 08:00 40 08/27/19 08:00 98.9 65 21 105/52 (69) 98 Intake and Output 08/27/19 08/28/19 19:00 07:00 Intake Total 410 ml 540 ml Output Total 800 ml 350 ml Balance -390 ml 190 ml Free Water 100 ml Tube Feeding 280 ml 440 ml Other 130 ml Output Urine Total 800 ml 350 ml # Voids 2 # Bowel Movements 1 7 Laboratory Tests 08/27/19 09:47: Prothrombin Time 11.4, Prothromb Time International Ratio 1.1, Activated Partial Thromboplast Time 35H 08/28/19 04:25: White Blood Count 8.2, Red Blood Count 4.17L, Hemoglobin 11.0L, Hematocrit 34.6L , Mean Corpuscular Volume 83, Mean Corpuscular Hemoglobin 26.4L, Mean Corpuscular Hemoglobin Concent 31.8L, Red Cell Distribution Width 17.6H, Platelet Count 224, Mean Platelet Volume 6.2L, Neutrophils (%) (Auto) 74.6, Lymphocytes (%) (Auto) 13.1L, Monocytes (%) (Auto) 7.5, Eosinophils (%) (Auto) 4.4H, Basophils (%) (Auto) 0.5, Sodium Level 138, Potassium Level 3.4L, Chloride Level 100, Carbon Dioxide Level 29, Anion Gap 9, Blood Urea Nitrogen 23H, Creatinine 0.9, Estimat Glomerular Filtration Rate , Glucose Level 103, Calcium Level 9.2, Total Bilirubin 0.5, Aspartate Amino Transf (AST/SGOT) 52H, Alanine Aminotransferase (ALT/SGPT) 93H, Alkaline Phosphatase 102, Total Protein 8.0, Albumin 2.7L, Globulin 5.3, Albumin/Globulin Ratio 0.5L Height (Feet): 5 Height (Inches): 7.00 Weight (Pounds): 164 Objective General Appearance: WD/WN, alert Neck: supple Cardiovascular: regular rhythm Respiratory/Chest: lungs clear Abdomen: normal bowel sounds, non tender, soft, no organomegaly Edema: no edema noted Arm (L), no edema noted Arm (R), no edema noted Leg (L), no edema noted Leg (R), no edema noted Pedal (L), no edema noted Pedal (R), no edema noted Generalized Reed Pérez MD Aug 28, 2019 07:48
--- NOTE | 2019-08-28 07:55 | NUR ---
HAND-OFF: Report given to Priyanka Gomez RN. pt is in stable condition.
[2019-08-28 08:00] VITALS: BP 113/53
[2019-08-28] MEDS: Ascorbic Acid 500mg tab GT SCH (08:30)
[2019-08-28] MEDS: Thiamine 100mg tab GT SCH (08:30)
[2019-08-28] MEDS: Bethanechol 25mg Tab GT SCH (08:30)
[2019-08-28] MEDS: Multivitamins W/Minerals 15 ML UDC GT SCH (08:30)
[2019-08-28] MEDS: Aspirin EC 81mg tab ORAL SCH (08:30)
[2019-08-28] MEDS: Amiodarone 200mg tab GT SCH (09:00)
[2019-08-28] MEDS: Spironolactone 25mg tab ORAL SCH (10:12)
--- NOTE | 2019-08-28 10:20 | NUR ---
NURSE NOTES: Unable to do video swallow today; Dr Enamorado notified and made aware. Gave order to discharge patient back to nursing facility. Will carry out orders.
--- NOTE | 2019-08-28 10:21 | NUR ---
RD ASSESSMENT & RECOMMENDATIONS SEE CARE ACTIVITY FOR COMPLETE ASSESSMENT DAILY ESTIMATED NEEDS: Needs based on Wound, critical care 71.7kg 22-30 kcals/kg 9340-2610 total kcals 1.25-2 g protein/kg 90-143 g total protein 25-30 mL/kg 4266-0386 total fluid mLs NUTRITION DIAGNOSIS: Swallowing difficulty r/t resp status as evidenced by pt w/ trach and PEG, on oral diet w/ PMV and texture modifications. (CURRENT TF: Glucerna 1.2 @40 x22 hrs) ENTERAL NUTRITION RECOMMENDATIONS: Rec to INCREASE to rate of 60ml/hr x22 hrs to provide 1320ml, 1584 kcal, 79g pro, 1063ml free H2O - Rec to INCREASE FEEDS to better meet est needs. - Flush per MD, HOB Over 30 degrees - Add Prosource x1 pack daily (11g pro/pack) to better meet est pro needs ADDITIONAL RECOMMENDATIONS: 1) [employer] eval for texture-> VSS is pending now (08/28) 2) maintain accurate bed scale wts-> pt on lasix 3) Wound care: Add EVERARDO BID via GT 4) On lasix, monitor lytes daily 5) Monitor po intake, appears to be 75% most meals
--- NOTE | 2019-08-28 10:35 | NUR ---
*-* INSURANCE *-* PATIENT HAS BEEN REFERRED BACK TO: [facility] P: [phone] F: [phone] EFAX: [phone] EMAIL: [email or web address]
--- NOTE | 2019-08-28 10:40 | NUR ---
*-* DISCHARGE PLANNING *-* PATIENT HAS BEEN REFERRED BACK TO: [facility] P: [phone] F: [phone] EFAX: [phone] EMAIL: [email or web address]
--- NOTE | 2019-08-28 10:59 | Cardiac Electrophysiology PN ---
Assessment/Plan Assessment/Plan 1. Shortness of breath due to CHF exacerbation EF 35% with BNP of almost 6000. Continue Lasix 40 mg IV b.i.d., Coreg 3.125 mg bid, losartan 12.5 mg daily and Aldactone 25 daily 2. PAF, in sinus rhythm, on Coreg, amiodarone 200 mg daily and Aspirin 3. CAD and prior stent in 2017, no chest pain on Coreg, Lipitor and aspirin 4. Ventilator-dependent respiratory failure and COPD.S/P Tracheostomy. Further evaluation by Dr. Enamorado. 5. Dysphagia, status post G-tube, but also the patient eats food. DW and RN at bedside Subjective Subjective No events. at bedside. Alert in NAD on Vent via Tracheostomy with 35% Fio2. US not enogh fluid for Left thoracentesis DC planning back to [facility] today Objective Last 24 Hour Vital Signs Date Time Temp Pulse Resp B/P (MAP) Pulse Ox O2 Delivery O2 Flow Rate FiO2 08/28/19 09:15 60 23 40 08/28/19 08:53 58 113/53 08/28/19 08:00 Mechanical Ventilator Mechanical Ventilator 08/28/19 08:00 40 08/28/19 08:00 97.5 58 20 113/53 (73) 100 08/28/19 07:36 54 08/28/19 07:00 52 20 100 Mechanical Ventilator 40 62 18 40 08/28/19 05:52 58 16 100 Mechanical Ventilator 08/28/19 04:52 62 20 40 08/28/19 04:00 40 08/28/19 04:00 Mechanical Ventilator Mechanical Ventilator 08/28/19 04:00 97.9 58 20 120/60 (80) 100 08/28/19 04:00 58 08/28/19 03:44 58 20 100 Mechanical Ventilator 40 60 19 40 08/28/19 00:40 57 20 40 08/28/19 00:00 58 08/28/19 00:00 98.2 62 21 125/50 (75) 100 08/28/19 00:00 40 08/28/19 00:00 Mechanical Ventilator Mechanical Ventilator 08/27/19 23:31 58 21 100 Mechanical Ventilator 40 60 20 40 08/27/19 21:08 60 20 40 08/27/19 20:00 98.4 63 24 140/62 (88) 99 08/27/19 20:00 Mechanical Ventilator Mechanical Ventilator 08/27/19 20:00 40 08/27/19 20:00 68 08/27/19 19:21 63 20 100 Mechanical Ventilator 40 64 20 40 08/27/19 17:10 65 22 40 08/27/19 16:00 63 08/27/19 16:00 Mechanical Ventilator Mechanical Ventilator 08/27/19 16:00 98.6 62 21 116/61 (79) 100 08/27/19 16:00 40 08/27/19 15:14 61 22 100 Mechanical Ventilator 40 65 20 40 08/27/19 12:30 66 20 40 08/27/19 12:00 99.4 62 20 111/57 (75) 100 08/27/19 12:00 Mechanical Ventilator Mechanical Ventilator 08/27/19 12:00 40 08/27/19 11:45 62 Intake and Output 08/27/19 08/28/19 19:00 07:00 Intake Total 410 ml 540 ml Output Total 800 ml 350 ml Balance -390 ml 190 ml Free Water 100 ml Tube Feeding 280 ml 440 ml Other 130 ml Output Urine Total 800 ml 350 ml # Voids 2 # Bowel Movements 1 7 Laboratory Tests Test 08/28/19 04:25 White Blood Count 8.2 K/UL (4.8-10.8) Red Blood Count 4.17 M/UL (4.70-6.10) L Hemoglobin 11.0 G/DL (14.2-18.0) L Hematocrit 34.6 % (42.0-52.0) L Mean Corpuscular Volume 83 FL (80-99) Mean Corpuscular Hemoglobin 26.4 PG (27.0-31.0) L Mean Corpuscular Hemoglobin Concent 31.8 G/DL (32.0-36.0) L Red Cell Distribution Width 17.6 % (11.6-14.8) H Platelet Count 224 K/UL (150-450) Mean Platelet Volume 6.2 FL (6.5-10.1) L Neutrophils (%) (Auto) 74.6 % (45.0-75.0) Lymphocytes (%) (Auto) 13.1 % (20.0-45.0) L Monocytes (%) (Auto) 7.5 % (1.0-10.0) Eosinophils (%) (Auto) 4.4 % (0.0-3.0) H Basophils (%) (Auto) 0.5 % (0.0-2.0) Sodium Level 138 MMOL/L (136-145) Potassium Level 3.4 MMOL/L (3.5-5.1) L Chloride Level 100 MMOL/L (98-107) Carbon Dioxide Level 29 MMOL/L (21-32) Anion Gap 9 mmol/L (5-15) Blood Urea Nitrogen 23 mg/dL (7-18) H Creatinine 0.9 MG/DL (0.55-1.30) Estimat Glomerular Filtration Rate mL/min (>60) Glucose Level 103 MG/DL (74-106) Calcium Level 9.2 MG/DL (8.5-10.1) Total Bilirubin 0.5 MG/DL (0.2-1.0) Aspartate Amino Transf (AST/SGOT) 52 U/L (15-37) H Alanine Aminotransferase (ALT/SGPT) 93 U/L (12-78) H Alkaline Phosphatase 102 U/L (46-116) Total Protein 8.0 G/DL (6.4-8.2) Albumin 2.7 G/DL (3.4-5.0) L Globulin 5.3 g/dL Albumin/Globulin Ratio 0.5 (1.0-2.7) L Objective HEAD AND NECK: Mild JVD. Status post tracheostomy. LUNGS: Basilar rales. Coarse rhonchi. CARDIOVASCULAR: Regular S1 and S2 with no gallop. ABDOMEN: Soft. Status post G-tube. EXTREMITIES: No pitting edema. Vipul Hazel MD Aug 28, 2019 10:59
[2019-08-28 12:00] VITALS: BP 128/61
--- NOTE | 2019-08-28 12:11 | Surgery Progress Note ---
Surgery Progress Note Subjective Additional Comments leukocytosis resolved very awake and alert comfortable family at bedside. Objective Last 24 Hour Vital Signs Date Time Temp Pulse Resp B/P (MAP) Pulse Ox O2 Delivery O2 Flow Rate FiO2 08/28/19 12:00 Mechanical Ventilator Mechanical Ventilator 08/28/19 12:00 40 08/28/19 11:15 57 22 40 08/28/19 09:15 60 23 40 08/28/19 08:53 58 113/53 08/28/19 08:00 Mechanical Ventilator Mechanical Ventilator 08/28/19 08:00 40 08/28/19 08:00 97.5 58 20 113/53 (73) 100 08/28/19 07:36 54 08/28/19 07:00 52 20 100 Mechanical Ventilator 40 62 18 40 08/28/19 05:52 58 16 100 Mechanical Ventilator 08/28/19 04:52 62 20 40 08/28/19 04:00 40 08/28/19 04:00 Mechanical Ventilator Mechanical Ventilator 08/28/19 04:00 97.9 58 20 120/60 (80) 100 08/28/19 04:00 58 08/28/19 03:44 58 20 100 Mechanical Ventilator 40 60 19 40 08/28/19 00:40 57 20 40 08/28/19 00:00 58 08/28/19 00:00 98.2 62 21 125/50 (75) 100 08/28/19 00:00 40 08/28/19 00:00 Mechanical Ventilator Mechanical Ventilator 08/27/19 23:31 58 21 100 Mechanical Ventilator 40 60 20 40 08/27/19 21:08 60 20 40 08/27/19 20:00 98.4 63 24 140/62 (88) 99 08/27/19 20:00 Mechanical Ventilator Mechanical Ventilator 08/27/19 20:00 40 08/27/19 20:00 68 08/27/19 19:21 63 20 100 Mechanical Ventilator 40 64 20 40 08/27/19 17:10 65 22 40 08/27/19 16:00 63 08/27/19 16:00 Mechanical Ventilator Mechanical Ventilator 08/27/19 16:00 98.6 62 21 116/61 (79) 100 08/27/19 16:00 40 08/27/19 15:14 61 22 100 Mechanical Ventilator 40 65 20 40 08/27/19 12:30 66 20 40 I&O Intake and Output 08/27/19 08/28/19 19:00 07:00 Intake Total 410 ml 540 ml Output Total 800 ml 350 ml Balance -390 ml 190 ml Free Water 100 ml Tube Feeding 280 ml 440 ml Other 130 ml Output Urine Total 800 ml 350 ml # Voids 2 # Bowel Movements 1 7 Dressing: dry Wound: clean Cardiovascular: RSR Respiratory: clear Abdomen: soft, non-tender, present bowel sounds Extremities: no edema, no tenderness, no cyanosis Laboratory Tests Test 08/28/19 04:25 White Blood Count 8.2 K/UL (4.8-10.8) Red Blood Count 4.17 M/UL (4.70-6.10) L Hemoglobin 11.0 G/DL (14.2-18.0) L Hematocrit 34.6 % (42.0-52.0) L Mean Corpuscular Volume 83 FL (80-99) Mean Corpuscular Hemoglobin 26.4 PG (27.0-31.0) L Mean Corpuscular Hemoglobin Concent 31.8 G/DL (32.0-36.0) L Red Cell Distribution Width 17.6 % (11.6-14.8) H Platelet Count 224 K/UL (150-450) Mean Platelet Volume 6.2 FL (6.5-10.1) L Neutrophils (%) (Auto) 74.6 % (45.0-75.0) Lymphocytes (%) (Auto) 13.1 % (20.0-45.0) L Monocytes (%) (Auto) 7.5 % (1.0-10.0) Eosinophils (%) (Auto) 4.4 % (0.0-3.0) H Basophils (%) (Auto) 0.5 % (0.0-2.0) Sodium Level 138 MMOL/L (136-145) Potassium Level 3.4 MMOL/L (3.5-5.1) L Chloride Level 100 MMOL/L (98-107) Carbon Dioxide Level 29 MMOL/L (21-32) Anion Gap 9 mmol/L (5-15) Blood Urea Nitrogen 23 mg/dL (7-18) H Creatinine 0.9 MG/DL (0.55-1.30) Estimat Glomerular Filtration Rate mL/min (>60) Glucose Level 103 MG/DL (74-106) Calcium Level 9.2 MG/DL (8.5-10.1) Total Bilirubin 0.5 MG/DL (0.2-1.0) Aspartate Amino Transf (AST/SGOT) 52 U/L (15-37) H Alanine Aminotransferase (ALT/SGPT) 93 U/L (12-78) H Alkaline Phosphatase 102 U/L (46-116) Total Protein 8.0 G/DL (6.4-8.2) Albumin 2.7 G/DL (3.4-5.0) L Globulin 5.3 g/dL Albumin/Globulin Ratio 0.5 (1.0-2.7) L Plan Problems: (1) Abnormal LFTs Assessment & Plan: 73M with abnormal lft's, abd distention, firm, non tender, KUB as below. diarrhea with tube feeds some oral intake no n/v/f/c okay for diet US The liver is unremarkable. Doppler interrogation of the main portal vein shows patency with hepatopedal, monophasic flow. There is no biliary ductal dilatation identified. Gallbladder is notable for small polyp. Gallbladder wall is prominent but the gallbladder is not fully distended. There is a right pleural effusion. The spleen is prominent measuring about 13 cm. There demonstrated part of the pancreas and IVC show no definite abnormalities. Aorta is calcified. Both kidneys appear unremarkable. There is no hydronephrosis. IMPRESSION: Mild splenomegaly. Right pleural effusion Suspected gallbladder polyp. trend labs abx as per ID will follow with recs thank you Gastrostomy or enterostomy tube in the leftward mid abdomen. No clear bowel obstruction or free air. Pt presented on admission with a maroon discoloration sacrum without induration or fluctuance. 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 No evidence of incontinence associated skin erosion noted Both heels are soft but are both easily blanchable. No other skin concerns noted. Tx.plan: Apply Remedy Antifungal Powder to perineal areas and buttocks with each incontinence care. Reposition at least every 2hours or as tolerated. Off-load heels with pillow. Mild to moderate bilateral pleural effusions with associated compressive atelectasis. Atherosclerotic vascular disease. Tracheostomy Osteopenia Gastrostomy d/c planning cont above care plan upon d/c Benyamini,Avel Aug 28, 2019 12:11
--- NOTE | 2019-08-28 13:31 | NUR ---
NURSE NOTES: Report given to HOMER Euceda from [facility] via telephone.
[2019-08-28] MEDS ORDERED: NS 275ml ONE (14:19)
--- NOTE | 2019-08-28 14:20 | NUR ---
NURSE NOTES: Discharged patient to [facility] per Dr Enamorado's order via [facility]. monitor and storage bin tender and IV removed prior to discharge. VSS. at bedside, aware of discharge, took all belongings.
--- NOTE | 2019-08-28 16:34 | Pulmonology Progress Note ---
Assessment/Plan Assessment/Plan IMPRESSION CHF pulmonary edema bilateral pleural effusions protein calorie malnutrition GINETTE anemia, chronic disease respiratory failure chronic trach gt orthostatic hypotension PLAN VENT as is at risk of aspiration - follow up at [facility] cardiology evaluation noted thoracentesis if able supportive care follow up labs and recommend out of bed as able po with caution dc to snf with followup seen earlier impression, plan, and exam edited and reviewed in detail care discussed with RN Subjective Allergies: Coded Allergies: No Known Allergies (Unverified , 08/21/19) Subjective awake remains comfortable normotensive not enough fluid to tap Objective Last 24 Hour Vital Signs Date Time Temp Pulse Resp B/P (MAP) Pulse Ox O2 Delivery O2 Flow Rate FiO2 08/28/19 13:01 58 20 40 08/28/19 12:00 Mechanical Ventilator Mechanical Ventilator 08/28/19 12:00 97.8 57 20 128/61 (83) 100 08/28/19 12:00 40 08/28/19 11:25 56 08/28/19 11:15 57 22 100 Mechanical Ventilator 60.0 40 60 20 40 08/28/19 09:15 60 23 40 08/28/19 08:53 58 113/53 08/28/19 08:00 Mechanical Ventilator Mechanical Ventilator 08/28/19 08:00 40 08/28/19 08:00 97.5 58 20 113/53 (73) 100 08/28/19 07:36 54 08/28/19 07:00 52 20 100 Mechanical Ventilator 40 62 18 40 08/28/19 05:52 58 16 100 Mechanical Ventilator 08/28/19 04:52 62 20 40 08/28/19 04:00 40 08/28/19 04:00 Mechanical Ventilator Mechanical Ventilator 08/28/19 04:00 97.9 58 20 120/60 (80) 100 08/28/19 04:00 58 08/28/19 03:44 58 20 100 Mechanical Ventilator 40 60 19 40 08/28/19 00:40 57 20 40 08/28/19 00:00 58 08/28/19 00:00 98.2 62 21 125/50 (75) 100 08/28/19 00:00 40 08/28/19 00:00 Mechanical Ventilator Mechanical Ventilator 08/27/19 23:31 58 21 100 Mechanical Ventilator 40 60 20 40 08/27/19 21:08 60 20 40 08/27/19 20:00 98.4 63 24 140/62 (88) 99 08/27/19 20:00 Mechanical Ventilator Mechanical Ventilator 08/27/19 20:00 40 08/27/19 20:00 68 08/27/19 19:21 63 20 100 Mechanical Ventilator 40 64 20 40 08/27/19 17:10 65 22 40 Intake and Output 08/27/19 08/28/19 19:00 07:00 Intake Total 410 ml 540 ml Output Total 800 ml 350 ml Balance -390 ml 190 ml Free Water 100 ml Tube Feeding 280 ml 440 ml Other 130 ml Output Urine Total 800 ml 350 ml # Voids 2 # Bowel Movements 1 7 Objective WDWN NAD trach and vent reduced breath sounds bilaterally without rhonchi or wheeze [id number] without MRG NABS nontender no HSM; Gt no CC mild edema weak nonfocal Laboratory Tests 08/28/19 04:25: White Blood Count 8.2, Red Blood Count 4.17L, Hemoglobin 11.0L, Hematocrit 34.6L , Mean Corpuscular Volume 83, Mean Corpuscular Hemoglobin 26.4L, Mean Corpuscular Hemoglobin Concent 31.8L, Red Cell Distribution Width 17.6H, Platelet Count 224, Mean Platelet Volume 6.2L, Neutrophils (%) (Auto) 74.6, Lymphocytes (%) (Auto) 13.1L, Monocytes (%) (Auto) 7.5, Eosinophils (%) (Auto) 4.4H, Basophils (%) (Auto) 0.5, Sodium Level 138, Potassium Level 3.4L, Chloride Level 100, Carbon Dioxide Level 29, Anion Gap 9, Blood Urea Nitrogen 23H, Creatinine 0.9, Estimat Glomerular Filtration Rate , Glucose Level 103, Calcium Level 9.2, Total Bilirubin 0.5, Aspartate Amino Transf (AST/SGOT) 52H, Alanine Aminotransferase (ALT/SGPT) 93H, Alkaline Phosphatase 102, Total Protein 8.0, Albumin 2.7L, Globulin 5.3, Albumin/Globulin Ratio 0.5L Syed Enamorado MD Aug 28, 2019 16:34
--- NOTE | 2019-08-28 17:54 | NUR ---
ST NOTE/ D/C SUMMARY PATIENT IS PENDING DISCHARGE TO SNF. DISCUSSED WITH PATIENT AND SPOUSE HIS HIGH RISK FOR ASPIRATION AND REINFORCED THE NEED FOR A VIDEO SWALLOW STUDY TO BE DONE BEFORE P.O. INTAKE IS RESUMED. RADIOLOGY DEPARTMENT UNABLE TO ASSIST WITH THIS TESTING TODAY. THEREFORE, VIDEO SWALLOW DEFERRED TO BE DONE ON O/P BASIS. D/C FROM [facility].
[2019-08-28] MEDS ORDERED: Epoetin Alfa-EPBX (NON ESRD)10,000 unit/ml vial SUBQ SCH (21:00)
--- NOTE | 2019-08-30 16:16 | Discharge Summary ---
Discharge Summary Discharge Summary _ DATE OF ADMISSION: 08/21/2019 DATE OF DISCHARGE: 08/28/2019 DISCHARGED BY: [] CONSULTANTS: Dr. Reed Oneill BRIEF HOSPITAL COURSE: The patient is a 73-year-old male. He has history of COPD, chronic respiratory failure, congestive heart failure and anemia. He was transferred to the hospital from alf facility due to volume overload and CHF. He had progressive edema and worsening shortness of breath. Patient was already being treated with p.o. Lasix. Patient failed outpatient treatment. Upon evaluation at the ED, vital signs were stable. Blood work showed anemia with a hemoglobin of 9.8 and hematocrit 34. Electrolytes were normal. Lactic acid 1.4. proBNP 3757. Troponin negative. Chest x-ray showed bilateral pleural effusion. Patient was then admitted for CHF exacerbation. He was admitted to stepdown unit. He was given IV Lasix. He was given Coreg and losartan. Patient has a history of paroxysmal atrial fibrillation. He was sinus on the monitor. He was continued on amiodarone 200 mg and aspirin daily. He was continued on vent support. He was given nebulizer treatment. He had elevated LFTs. Surgeon was consulted. KUB showed gastrostomy or enterostomy tube in the leftward mid abdomen. No obstruction or free air. Abdominal ultrasound showed mild splenomegaly, right pleural effusion and suspected gallbladder polyp. He was started on a diet. Patient has a G-tube feeding and also on p.o. feeds. He was placed on strict aspiration precaution. Would need to have bedside swallow evaluation done as out patient. Patient presented on admission with a maroon discoloration on the sacrum with out induration or fluctuance. There was no evidence of incontinence associated skin ersion. Both heels were soft but easily blanchable. He was given incontinence care, advised frequent repositioning and offloading. Repeat chest x-ray did not show any improvement. He was given Aldactone together with Lasix. Echocardiogram showed EF of 35%. CT of the chest showed a mild to moderate bilateral pleural effusion with associated compressive atelectasis. Patient was ordered for thoracentesis, however, ultrasound of the chest showed small bilateral effusions, thoracentesis was not performed. He was [facility] back to [facility]. FINAL DIAGNOSES: Acute on chronic systolic CHF in exacerbation Moderate protein calorie malnutrition Pulmonary edema Acute kidney injury Anemia of chronic disease Chronic respiratory failure on trach G-tube status Orthostatic hypotension Abnormal LFTs Maroon discoloration on the sacrum without induration or fluctuance, present on admission Paroxysmal atrial fibrillation Coronary artery disease with prior stent DISPOSITION: DC back to SNF I have been assigned to complete a discharge summary on this account, I was not involved with the patient's management.--ANNAMARIA Salinas Jacqueline Robles NP Aug 30, 2019 16:16
== END 2019-08-28 14:20 | DRG 292 ==
LOC: EDBD 16:16 → EMR 17:32 → 2W 17:44 → EDBEDREQ 18:03
PROC: 3E0G76Z Introduction of Nutritional Substance into Upper GI, Via Natural or Artificial Opening (ICD-10-PCS; principal; 2019-08-21)
PROC: 5A1955Z Respiratory Ventilation, Greater than 96 Consecutive Hours (ICD-10-PCS; principal; 2019-08-21)
DX: I50.23 Acute on chronic systolic (congestive) heart failure (principal); J96.10 Chronic respiratory failure, unspecified whether with hypoxia or hypercapnia; N17.9 Acute kidney failure, unspecified; J90 Pleural effusion, not elsewhere classified; I42.9 Cardiomyopathy, unspecified; E44.0 Moderate protein-calorie malnutrition; I47.1 Supraventricular tachycardia; Z99.11 Dependence on respirator [ventilator] status; I48.0 Paroxysmal atrial fibrillation; J44.9 Chronic obstructive pulmonary disease, unspecified; Z93.1 Gastrostomy status; R13.10 Dysphagia, unspecified; R16.1 Splenomegaly, not elsewhere classified; D63.8 Anemia in other chronic diseases classified elsewhere; I25.10 Atherosclerotic heart disease of native coronary artery without angina pectoris; E87.6 Hypokalemia; R53.81 Other malaise; I95.1 Orthostatic hypotension; K59.00 Constipation, unspecified; Z68.25 Body mass index [BMI] 25.0-25.9, adult; R94.5 Abnormal results of liver function studies; R19.7 Diarrhea, unspecified; E11.9 Type 2 diabetes mellitus without complications; I70.0 Atherosclerosis of aorta; K82.4 Cholesterolosis of gallbladder; L98.8 Other specified disorders of the skin and subcutaneous tissue; E78.5 Hyperlipidemia, unspecified; G47.00 Insomnia, unspecified; Z79.4 Long term (current) use of insulin; Z93.0 Tracheostomy status; Z87.891 Personal history of nicotine dependence; Z95.5 Presence of coronary angioplasty implant and graft
CPT/HCPCS: 36415; 71045; 71250; 74018; 76604; 76700; 80048; 80053; 80061; 81003; 82150; 82270; 82550; 82553; 82962; 83605; 83690; 83880; 84484; 85025; 85610; 85651; 85730; 86140; 86710; 87040; 87081; 93005; 93306; 94002; 94003; 94664; 96374; 99285; J1815; J7030; J8499; S5561